=== PATIENT | female | born 1965 | race Caucasian/White ===

== ENCOUNTER 2017-05-20 17:06 | Inpatient (IN) | payer OTHER ==
--- NOTE | 2017-05-20 17:33 | ERPHSYRPT ---
- History of Present Illness Time Seen by Provider: 05/20/17 17:25 Source: patient Patient Subjective Stated Complaint: HAS RED SORE AREA TO LEFT BREAST. ALSO STATING SHE FEELS SOB. RESP EASY SYMPTOMS SINCE LAST MONDAY. WAS ADMITTED AT [facility] FOR TWO DAYS AND STARTED ON ANTIBIOTICS-AUGMENTIN. Triage Nursing Assessment: PRESENTS PER EMS ON COT TO ROOM FIVE. SKIN W/D, COLOR NORMAL, RESP NONLABORED, RATE 16, HOWEVER PATIENT STATES SHE FEELS LIKE SHE IS SOB. LARGE RED, WARM AREA NOTED TO LEFT BREAST AREA. NO MASSES NOTED. OXYGEN ON AT 2L WITH SAT OF 97%. BREATH SOUNDS CLEAR. Physician History: Pt. with L chest wall tenderness for 5 days States noticed redness increasing in size. States admitted at [facility] for two day and treated for what pt. thought "virus infection" and received IV atbc. Pt. also had chest CT, which was neg for PE. States she did not feel too much better when discharge. Continued to have fever, felt hot but did not know tem. along with SOB, diaphoresis, chills, productive cough with white sputum. Pt. previously with pneumonia/bronchitis and influenza B around 01/13. Denies any N/V/D, sinus congestion, earache or sore throat. Pt. have been taking nebs with some relief , Tylenol for fever and noted decrease appetite. States glucose running high this past week, 300's at most the time. No abdominal pain or urinary symptoms. Timing/Duration: day(s) (5), constant Severity: moderate Modifying Factors: Improves With: nothing Associated Symptoms: nausea, fever, No headaches, No loss of appetite Allergies/Adverse Reactions: acetaminophen [From Percocet] Allergy (Verified 05/20/17 17:19) codeine Allergy (Verified 05/20/17 17:19) ezetimibe [From Vytorin] Allergy (Verified 05/20/17 17:19) metformin [From Glucophage] Allergy (Verified 05/20/17 17:19) oxycodone [From Percocet] Allergy (Verified 05/20/17 17:19) prochlorperazine [From Compazine] Allergy (Verified 05/20/17 17:19) simvastatin [From Vytorin] Allergy (Verified 05/20/17 17:19) Home Medications: Atenolol 25 mg PO DAILY 09/22/16 [History] Cetirizine HCl [Zyrtec] 10 mg PO DAILY 09/22/16 [History] Gabapentin [Neurontin] 300 mg PO DAILY 09/22/16 [History] Insulin Glargine,Hum.rec.anlog [Lantus] 64 unit SQ QAM 09/22/16 [History] Insulin Lispro [Humalog] 14 unit SQ AC 09/22/16 [History] Lisinopril 40 mg PO DAILY 09/22/16 [History] Naproxen 300 mg PO DAILY 09/22/16 [History] Omeprazole 20 MG [Prilosec 20 mg] 20 mg PO DAILY 09/22/16 [History] Sertraline HCl 100 mg [Zoloft 100 MG] 100 mg PO DAILY 09/22/16 [History] Sitagliptin Phosphate [Januvia] 1 tab PO DAILY 09/22/16 [History] Tizanidine HCl 4 mg [Zanaflex 4 MG] 4 mg PO DAILY 09/22/16 [History] Cinnamon Bark [Cinnamon] 500 mg PO .UNKNOWN 11/15/16 [History] Multivitamin [Multivitamins] 1 each PO .UNKNOWN 11/15/16 [History] Atorvastatin Calcium [Lipitor 40Mg] 40 mg PO DAILY 04/17/17 [History] Buprenorphine HCl [Belbuca] 75 mcg BC DAILY 04/17/17 [History] Hx Tetanus, Diphtheria Vaccination/Date Given: No Hx Influenza Vaccination/Date Given: Yes Hx Pneumococcal Vaccination/Date Given: Yes - Review of Systems Constitutional: Fever, Chills, Fatigue, Weakness Eyes: No Symptoms Ears, Nose, & Throat: No Symptoms Respiratory: Cough, Dyspnea, Dyspnea on Exertion (DIAZ), Wheezing Cardiac: Chest Pain, Palpitations, No Edema, No Syncope, No Orthopnea Abdominal/Gastrointestinal: No Abdominal Pain, No Nausea, No Vomiting, No Diarrhea Genitourinary Symptoms: No Dysuria Musculoskeletal: No Back Pain, No Neck Pain Skin: No Rash Neurological: No Dizziness, No Focal Weakness, No Sensory Changes Psychological: No Symptoms Endocrine: No Symptoms All Other Systems: Reviewed and Negative - Past Medical History Pertinent Past Medical History: Yes Neurological History: No Pertinent History Cardiac History: Hypertension, Other Respiratory History: Asthma Endocrine Medical History: Diabetes Type II Musculoskeletal History: Degenerative Disk Disease Other Medical History: MVP, R KNEE MENSICUS TEAR W/ REPAIR - Past Surgical History Past Surgical History: Yes Gastrointestinal: Cholecystectomy, Hernia Repair Musculoskeletal: Orthopedic Surgery (R Knee torn meniscus) Female Surgical History: Tubal Ligation - Social History Smoking Status: Never smoker Exposure to second hand smoke: No Drug Use: none Patient Lives Alone: No - Nursing Vital Signs Nursing Vital Signs: Initial Vital Signs Temperature 99.2 F Temperature Source Oral Pulse Rate 106 Respiratory Rate 16 Blood Pressure [Right Arm] 123/62 Pain Intensity [Left Chest] 8 Pain Intensity 8 - Physical Exam General Appearance: no apparent distress, alert Eye Exam: PERRL/EOMI, eyes nml inspection Ears, Nose, Throat Exam: normal ENT inspection, TMs normal, pharynx normal, moist mucous membranes Neck Exam: normal inspection, non-tender, supple, full range of motion Respiratory Exam: normal breath sounds, chest tenderness (L chest wall area with surrounding erythema and subcutaneaous mass to L ant. axillary area), lungs clear, No respiratory distress Cardiovascular Exam: regular rate/rhythm, normal heart sounds, normal peripheral pulses Gastrointestinal/Abdomen Exam: soft, normal bowel sounds, No tenderness, No mass Back Exam: normal inspection, normal range of motion, No CVA tenderness, No vertebral tenderness Extremity Exam: normal inspection, normal range of motion, pelvis stable Neurologic Exam: alert, oriented x 3, cooperative, normal mood/affect, nml cerebellar function, nml station & gait, sensation nml, No motor deficits Skin Exam: normal color, warm, dry, other (erythema tender area to L chest wall area), No rash Lymphatic Exam: No adenopathy SpO2: 97 Oxygen Delivery: Room Air - Course Nursing assessment & vital signs reviewed: Yes EKG Interpreted by Me: RATE (80), NORMAL AXIS, NORMAL INTERVALS, NORMAL QRS, Non -specific ST Changes - Radiology Exams Chest X-ray Interpretation: Interpreted by me, Other (?bilat patchy infiltrates) Ordered Tests: Active Orders 24 hr Category Date Time Status Clean Catch Urine Specimen STAT Care 05/20/17 17:41 Active EKG-ER Only STAT Care 05/20/17 17:41 Active IV Insertion STAT Care 05/20/17 17:41 Active CHEST 2 VIEWS (PA AND LAT) Stat Exams 05/20/17 17:41 Ordered CBC W DIFF Stat Lab 05/20/17 17:30 Completed CMP Stat Lab 05/20/17 17:30 Completed Lactic Acid Stat Lab 05/20/17 17:45 Results Manual Differential NC Stat Lab 05/20/17 17:30 Completed UA W/RFX UR CULTURE Stat Lab 05/20/17 18:30 Completed Medication Summary Generic Name Dose Route Start Last Admin Trade Name Merlene PRN Reason Stop Dose Admin Sodium Chloride 1,000 mls @ 250 mls/hr 05/20/17 17:41 05/20/17 17:54 Sodium Chloride 0.9% 1000 Ml IV 05/20/17 21:40 250 mls/hr .Q4H STA Administration Discontinued Medications Generic Name Dose Route Start Last Admin Trade Name Merlene PRN Reason Stop Dose Admin Sodium Chloride Confirm 05/20/17 17:53 Sodium Chloride 0.9% 1000 Ml Administered 05/20/17 17:54 Dose 1,000 mls @ ud .ROUTE .STK-MED ONE Morphine Sulfate 2 mg 05/20/17 17:43 05/20/17 17:58 Morphine Sulfate 4 Mg Inj IV 05/20/17 17:44 2 mg STAT ONE Administration Morphine Sulfate Confirm 05/20/17 17:52 Morphine Sulfate 4 Mg Inj Administered 05/20/17 17:53 Dose 4 mg .ROUTE .STK-MED ONE Ondansetron HCl Confirm 05/20/17 18:04 Zofran 4 Mg/2 Ml Vial Administered 05/20/17 18:05 Dose 4 mg .ROUTE .STK-MED ONE Ondansetron HCl 4 mg 05/20/17 18:06 05/20/17 18:06 Zofran 4 Mg/2 Ml Vial IV 05/20/17 18:07 4 mg STAT ONE Administration Lab/Rad Data: Laboratory Result Diagrams 05/20/17 17:30 05/20/17 17:30 Laboratory Results 05/20/17 05/20/17 05/20/17 Range/Units 18:30 17:45 17:30 WBC (4.0-10.5) K/mm3 RBC (4.1-5.4) M/mm3 Hgb (12.0-16.0) gm/dl Hct (35-47) % MCV (78-100) fl MCH (26-32) pg MCHC (32-36) g/dl RDW (11.5-14.0) % Plt Count (150-450) K/mm3 MPV (6-9.5) fl Segmented Neutrophils (36.0-66.0) % Lymphocytes (Manual) (24-44) % Monocytes (Manual) (0.0-12.0) % Eosinophils (Manual) (0.00-3.0) % Differential Comment Platelet Estimate (NORMAL) Sodium 141 (136-145) mEq/L Potassium 3.6 (3.5-5.1) mEq/L Chloride 103 (98-107) mEq/L Carbon Dioxide 26.4 (21-32) mEq/L Anion Gap 15.6 H (5-15) MEQ/L BUN 8 L (9-20) mg/dL Creatinine 0.39 L (0.55-1.30) mg/dl Estimated GFR > 60 ML/MIN Glucose 119 H (70-110) MG/DL Lactic Acid 1.9 (0.4-2.0) Calcium 8.7 (8.5-10.1) mg/dL Total Bilirubin 0.80 (0.2-1.0) mg/dL AST 35 (15-37) U/L ALT 25 (12-78) U/L Alkaline Phosphatase 282 H (46-116) U/L Serum Total Protein 6.0 L (6.4-8.2) gm/dL Albumin 2.1 L (3.4-5.0) g/dL Ur Collection Type CLEAN CATCH Urine Color STRAW (YELLOW) Urine Appearance CLEAR (CLEAR) Urine pH 6.0 (5-6) Ur Specific [place] 1.010 (1.005-1.025) Urine Protein NEGATIVE (Negative) Urine Ketones NEGATIVE (NEGATIVE) Urine Blood NEGATIVE (0-5) Sameer/ul Urine Nitrite NEGATIVE (NEGATIVE) Urine Bilirubin NEGATIVE (NEGATIVE) Urine Urobilinogen 4 (0-1) mg/dL Ur Leukocyte Esterase NEGATIVE (NEGATIVE) Urine Glucose 50 (NEGATIVE) mg/dL Specimen Received 05/20/17:1830 05/20/17 Range/Units 17:30 WBC 17.5 H (4.0-10.5) K/mm3 RBC 3.55 L (4.1-5.4) M/mm3 Hgb 10.5 L (12.0-16.0) gm/dl Hct 31.2 L (35-47) % MCV 87.9 (78-100) fl MCH 29.5 (26-32) pg MCHC 33.7 (32-36) g/dl RDW 13.1 (11.5-14.0) % Plt Count 315 (150-450) K/mm3 MPV 10.1 H (6-9.5) fl Segmented Neutrophils 84 H (36.0-66.0) % Lymphocytes (Manual) 6 L (24-44) % Monocytes (Manual) 8 (0.0-12.0) % Eosinophils (Manual) 2 (0.00-3.0) % Differential Comment NORMAL Platelet Estimate NORMAL (NORMAL) Sodium (136-145) mEq/L Potassium (3.5-5.1) mEq/L Chloride (98-107) mEq/L Carbon Dioxide (21-32) mEq/L Anion Gap (5-15) MEQ/L BUN (9-20) mg/dL Creatinine (0.55-1.30) mg/dl Estimated GFR ML/MIN Glucose (70-110) MG/DL Lactic Acid (0.4-2.0) Calcium (8.5-10.1) mg/dL Total Bilirubin (0.2-1.0) mg/dL AST (15-37) U/L ALT (12-78) U/L Alkaline Phosphatase (46-116) U/L Serum Total Protein (6.4-8.2) gm/dL Albumin (3.4-5.0) g/dL Ur Collection Type Urine Color (YELLOW) Urine Appearance (CLEAR) Urine pH (5-6) Ur Specific [place] (1.005-1.025) Urine Protein (Negative) Urine Ketones (NEGATIVE) Urine Blood (0-5) Sameer/ul Urine Nitrite (NEGATIVE) Urine Bilirubin (NEGATIVE) Urine Urobilinogen (0-1) mg/dL Ur Leukocyte Esterase (NEGATIVE) Urine Glucose (NEGATIVE) mg/dL Specimen Received - Progress Progress: improved Progress Note: 05/20/17 18:45 Pt. given Morphine for pain with some relief of her symptoms Old charts reviewed from recent [facility] admission. Pt. with dx. of chest wall pain, infected left axilary lymph node and noted WBC was 20K on that decrease to 14K when she was discharge on 05/1805/20/17 18:47 05/20/17 19:11 Will start Vancomycin/Rocephin per Dr. Mendez Discussed with : Andrea (notified about pt and agrees to admit) Counseled pt/family regarding: lab results, diagnosis, rad results - Departure Time of Disposition: 19:10 Departure Disposition: Observation Clinical Impression: Cellulitis, Pneumonia Condition: Fair Critical Care Time: No Referrals: FELISHA OLIVER MD [Primary Care Provider] -
[2017-05-20] MEDS ORDERED: Sodium Chloride 0.9% 1000 ML 1,000 ML IV STA (17:41)
[2017-05-20] MEDS ORDERED: MORPHINE SULFATE 4 MG INJ IV ONE (17:43)
[2017-05-20 17:51] LABS: Mean Cell Volume 87.9 fl (78-100); Mean Platelet Volume 10.1 fl (6-9.5); Platelet Count 315 K/mm3 (150-450); Red Blood Count 3.55 M/mm3 (4.1-5.4); Red Cell Distribution Width 13.1 % (11.5-14.0); White Blood Count 17.5 K/mm3 (4.0-10.5)
[2017-05-20 17:51] LABS: Lactic Acid 1.9 (0.4-2.0)
[2017-05-20 17:52] LABS: Mean Corpuscular Hemoglobin 29.5 pg (26-32)
[2017-05-20] MEDS ORDERED: MORPHINE SULFATE 4 MG INJ ONE (17:52)
[2017-05-20] MEDS ORDERED: Sodium Chloride 0.9% 1000 ML 1,000 ML ONE (17:53)
[2017-05-20] MEDS ORDERED: Zofran 4 MG/2 ML VIAL ONE (18:04)
[2017-05-20] MEDS ORDERED: Zofran 4 MG/2 ML VIAL IV ONE (18:06)
[2017-05-20 18:08] LABS: ALBUMIN 2.1 g/dL (3.4-5.0); ALKALINE PHOSPHATASE 282 U/L (46-116); ANION GAP 15.6 MEQ/L (5-15); BLOOD UREA NITROGEN 8 mg/dL (9-20); CHLORIDE 103 mEq/L (98-107); Carbon Dioxide 26.4 mEq/L (21-32); Glucose 119 MG/DL (70-110); Potassium 3.6 mEq/L (3.5-5.1); SGOT/AST 35 U/L (15-37); SGPT/ALT 25 U/L (12-78); SODIUM 141 mEq/L (136-145)
[2017-05-20 18:46] LABS: ADD URINE CULTURE? NO (NO); Bilirubin NEGATIVE (NEGATIVE); Blood NEGATIVE Ery/ul (0-5); COMPLETE URINE MICROSCOPIC? NO; Collection Type CLEAN CATCH; Glucose 50 mg/dL (NEGATIVE); Leukocyte Esterase NEGATIVE (NEGATIVE)
[2017-05-20 19:07] LABS: Eosinophil 2 % (0.00-3.0); Platelet Estimate NORMAL (NORMAL); Total Cells Counted 100
[2017-05-20] MEDS ORDERED: Vancomycin 1GM/ Ns 250ML*** 1 GM/250 ML IVPB IV ONE (19:22)
[2017-05-20] MEDS ORDERED: Rocephin 1000 MG INJ IV ONE (19:23)
[2017-05-20] MEDS ORDERED: ROCEPHIN 1 Gm-D5w 50 ml Bag** 1 G/50 ML IVPB IV ONE (19:26)
[2017-05-20] MEDS ORDERED: Vancomycin 1GM/ Ns 250ML*** 250 ML IV ONE (19:26)
[2017-05-20] MEDS ORDERED: TYLENOL 325 MG PO PRN (21:46)
[2017-05-20] MEDS ORDERED: PHARMACY DOSING REQUIRED: VANCOMYCIN IV ONE (21:48)
[2017-05-20] MEDS ORDERED: NON-FORMULARY ITEM PO PRN (21:57)
[2017-05-20] MEDS ORDERED: Zanaflex 4 MG PO ONE (22:00)
[2017-05-20] MEDS ORDERED: ULTRAM 50 MG PO PRN (22:00)
[2017-05-20] MEDS ORDERED: Neurontin 100 MG PO ONE (22:00)
[2017-05-20] MEDS: Zofran 4 MG/2 ML VIAL IV PRN (22:22)
[2017-05-20] MEDS: MORPHINE SULFATE 4 MG INJ IV PRN (22:22)
[2017-05-21] MEDS: PROVENTIL 2.5 MG/3 ML NEB IH PRN ×5 (03:34→20:07)
[2017-05-21] MEDS: Zofran 4 MG/2 ML VIAL IV PRN ×2 (04:21→22:02)
[2017-05-21] MEDS: MORPHINE SULFATE 4 MG INJ IV PRN (04:21)
[2017-05-21 05:55] LABS: Mean Platelet Volume 9.8 fl (6-9.5); Platelet Count 314 K/mm3 (150-450); Red Blood Count 3.44 M/mm3 (4.1-5.4); Red Cell Distribution Width 13.2 % (11.5-14.0); White Blood Count 13.6 K/mm3 (4.0-10.5)
[2017-05-21 06:06] LABS: Mean Corpuscular Hemoglobin 29.3 pg (26-32)
[2017-05-21 06:13] LABS: ANION GAP 12.5 MEQ/L (5-15); BLOOD UREA NITROGEN 7 mg/dL (9-20); CHLORIDE 104 mEq/L (98-107); Carbon Dioxide 27.9 mEq/L (21-32); Glucose 98 MG/DL (70-110); Potassium 3.2 mEq/L (3.5-5.1); SODIUM 141 mEq/L (136-145)
[2017-05-21 07:55] LABS: ANISOCYTOSIS 1+; Poikilocytosis 1+; Total Cells Counted 100
[2017-05-21 07:56] LABS: Platelet Estimate NORMAL (NORMAL); Toxic Granulation 1+
--- NOTE | 2017-05-21 08:19 | PCM.HP ---
History of Present Illness - Chief Complaint Chief Complaint: Pneumonia History of Present Illness: is a 52 year old female who was admitted to [facility] last week and kept for 2 days, was treated for infected lymph node in left chest wall. She presented to our ER yesterday with left lateral chest pain, cough, fever and feels terrible. - Review of Systems Constitutional: Fever, Chills, Weakness Respiratory: Cough Cardiac: Chest Pain Abdominal/Gastrointestinal: No Abdominal Pain, No Nausea, No Vomiting, No Diarrhea Skin: Cellulitis All Other Systems: Reviewed and Negative Medications & Allergies Home Medications: Home Medication List Atenolol 25 mg PO DAILY 09/22/16 [History Confirmed 05/20/17] Cetirizine HCl [Zyrtec] 10 mg PO DAILY 09/22/16 [History Confirmed 05/20/17] Insulin Glargine,Hum.rec.anlog [Lantus] 65 unit SQ QAM 09/22/16 [History Confirmed 05/20/17] Insulin Lispro [Humalog] 20 unit SQ AC 09/22/16 [History Confirmed 05/20/17] Lisinopril 40 mg PO DAILY 09/22/16 [History Confirmed 05/20/17] Sertraline HCl 100 mg [Zoloft 100 MG] 100 mg PO DAILY 09/22/16 [History Confirmed 05/20/17] Sitagliptin Phosphate [Januvia] 1 tab PO DAILY 09/22/16 [History Confirmed 05/20] Tizanidine HCl 4 mg [Zanaflex 4 MG] 4 mg PO HS 09/22/16 [History Confirmed 05/20/17] Atorvastatin Calcium [Lipitor 40Mg] 40 mg PO HS 04/17/17 [History Confirmed ] Albuterol Sulfate [Proair Hfa] 8.5 gm IH UD PRN 05/20/17 [History Confirmed ] Amoxicillin/Potassium Clav [Augmentin 875-125 Tablet] 875 mg PO BID 05/20/17 [ History Confirmed 05/20/17] Gabapentin 100 mg PO BID 05/20/17 [History Confirmed 05/20/17] Naproxen Sodium [Naproxen Cr] 500 mg PO BID 05/20/17 [History Confirmed 05/20/17 ] Omeprazole 40 mg PO DAILY 05/20/17 [History Confirmed 05/20/17] Sumatriptan Succinate [Imitrex 50 mg] 50 mg PO Q8H PRN PRN 05/20/17 [History Confirmed 05/20/17] Tramadol HCl 50 mg PO Q4H PRN PRN 05/20/17 [History Confirmed 05/20/17] Allergies/Adverse Reactions: Allergies Allergy/AdvReac Type Severity Reaction Status Date / Time codeine Allergy Verified 05/20/17 17:19 ezetimibe [From Vytorin] Allergy Verified 05/20/17 17:19 metformin [From Glucophage] Allergy Verified 05/20/17 17:19 oxycodone [From Percocet] Allergy Verified 05/20/17 17:19 prochlorperazine Allergy Verified 05/20/17 17:19 [From Compazine] simvastatin [From Vytorin] Allergy Verified 05/20/17 17:19 - Past Medical History Past Medical History: Yes Neurological History: No Pertinent History Cardiac History: Hypertension, Other Respiratory History: Asthma Endocrine Medical History: Diabetes Type II Musculoskelatal History: Degenerative Disk Disease, Other Comment: Mitral Valve Prolapse, R KNEE MENSICUS TEAR W/ REPAIR, plantar fascia - Female History Are you now?: No - Past Surgical History Past Surgical History: Yes GI Surgical History: Cholecystectomy, Hernia Repair Musculskeletal Surgical Hx: Orthopedic Surgery Female Surgical History: Tubal Ligation Other Surgical History: carpal tunel repair in right hand - Social History Smoking Status: Former smoker Exposure to second hand smoke: No Alcohol: None Drug Use: none - Physical Exam Vital Signs: Vital Signs - 24 hr Temp Pulse Resp BP Pulse Ox 05/21/17 07:36 96 H 22 97 05/21/17 07:05 98.8 F 100 H 20 137/72 96 05/21/17 04:00 98.6 F 115 H 24 147/92 96 05/21/17 03:37 106 H 22 95 05/20/17 23:35 98.0 F 103 H 18 98/55 97 05/20/17 21:57 94 H 20 96 05/20/17 20:17 98.4 F 102 H 24 149/77 97 05/20/17 20:04 98.4 F 102 H 24 149/77 98 05/20/17 19:40 102 H 98 H 138/60 98 05/20/17 19:35 137/60 05/20/17 19:34 99.1 F 104 H 18 98 05/20/17 19:14 99.4 F 104 H 20 108/75 98 05/20/17 19:11 97 05/20/17 17:07 99.2 F 106 H 16 123/62 97 Oxygen-Last 24 hours O2 Percentage 2 Liters = 28% O2 Percentage 2 Liters = 28% O2 Percentage 2 Liters = 28% O2 Percentage 2 Liters = 28% O2 Percentage 2 Liters = 28% O2 Percentage 2 Liters = 28% General Appearance: no apparent distress, alert Eye Exam: PERRL/EOMI, eyes nml inspection Respiratory Exam: wheezing Cardiovascular Exam: regular rate/rhythm, normal heart sounds, normal peripheral pulses Gastrointestinal/Abdomen Exam: soft, normal bowel sounds, No tenderness, No mass Skin Exam: other (left lateral breast with large indurated area, slight erythema. no obvious fluctuance) Results - Labs Lab/Micro Results: Accuchecks Accucheck Value: 63 Lab Results-Last 24 Hours 05/20/17 05/21/17 05/21/17 Range/Units 20:30 05:32 05:32 WBC 13.6 H (4.0-10.5) K/mm3 RBC 3.44 L (4.1-5.4) M/mm3 Hgb 10.1 L (12.0-16.0) gm/dl Hct 30.6 L (35-47) % MCV 89.0 (78-100) fl MCH 29.3 (26-32) pg MCHC 33.0 (32-36) g/dl RDW 13.2 (11.5-14.0) % Plt Count 314 (150-450) K/mm3 MPV 9.8 H (6-9.5) fl Segmented Neutrophils 75 H (36.0-66.0) % Lymphocytes (Manual) 21 L (24-44) % Monocytes (Manual) 4 (0.0-12.0) % Differential Comment ABNORMAL Toxic Granulation 1+ Platelet Estimate NORMAL (NORMAL) Poikilocytosis 1+ Anisocytosis 1+ Sodium 141 (136-145) mEq/L Potassium 3.2 L (3.5-5.1) mEq/L Chloride 104 (98-107) mEq/L Carbon Dioxide 27.9 (21-32) mEq/L Anion Gap 12.5 (5-15) MEQ/L BUN 7 L (9-20) mg/dL Creatinine 0.50 L (0.55-1.30) mg/dl Estimated GFR > 60 ML/MIN Glucose 98 (70-110) MG/DL Lactic Acid 0.8 (0.4-2.0) Calcium 8.7 (8.5-10.1) mg/dL Accuchecks Accucheck Value: 63 - Radiology Impressions Radiology Exams & Impressions: Radiology Procedures Category Date Time Status CHEST WITH CONTRAST [CT] Urgent Exams 05/21/17 08:14 Ordered - Other Procedures and Tests Respiratory Therapy 05/20/17 21:56 Oxygen NASAL CANNULA 2 lpm 05/20/17 21:57 Respiratory Nebulizer UD Assessment/Plan (1) Pneumonia Current Visit: Yes Status: Acute Assessment & Plan: continue Vanc and rocephin at this time, will get ct chest to further evaluate, has wheezing. continue nebs Code(s): J18.9 - PNEUMONIA, UNSPECIFIED ORGANISM (2) Cellulitis Current Visit: Yes Status: Acute Assessment & Plan: continue vanc, evaluate soft tissue induration/mass with CT chest with IV contrast Code(s): L03.90 - CELLULITIS, UNSPECIFIED (3) Diabetes mellitus Current Visit: Yes Status: Acute Assessment & Plan: sliding scale insulin coverage and continue lantus Code(s): E11.9 - TYPE 2 DIABETES MELLITUS WITHOUT COMPLICATIONS
[2017-05-21] MEDS: VANCOCIN 1 GM VIAL*** 1.5 GM in Sodium Chloride 0.9% 500 ML 500 ML IV SCH ×2 (09:23→20:31)
[2017-05-21] MEDS ORDERED: NON-FORMULARY ITEM (Sumatriptan Succinate [Imitrex 50 Mg] 50 MG) PO PRN (09:35)
[2017-05-21] MEDS ORDERED: PATIENT OWN MEDICATION PO PRN (09:40)
[2017-05-21] MEDS ORDERED: NON-FORMULARY ITEM (Lisinopril [Lisinopril] 40 MG) PO SCH (10:00)
[2017-05-21] MEDS ORDERED: NON-FORMULARY ITEM (Atenolol [Atenolol] 25 MG) PO SCH (10:00)
[2017-05-21] MEDS ORDERED: NON-FORMULARY ITEM (Sertraline Hcl 100 Mg [Zoloft 100 Mg] 100 MG) PO SCH (10:00)
[2017-05-21] MEDS ORDERED: NON-FORMULARY ITEM (Omeprazole [Omeprazole] 40 MG) PO SCH (10:00)
[2017-05-21] MEDS: Lantus Insulin SQ SCH (10:30)
[2017-05-21] MEDS: ZOLOFT 50 MG TABLET PO SCH (10:34)
[2017-05-21] MEDS: Protonix 40MG Tablet PO SCH (10:35)
[2017-05-21] MEDS: TENORMIN 50 MG PO SCH (10:38)
[2017-05-21] MEDS: Neurontin 100 MG PO SCH ×2 (10:39→21:56)
[2017-05-21] MEDS: Zestril 20 MG PO SCH (10:43)
[2017-05-21] MEDS ORDERED: ROCEPHIN 1 Gm-D5w 50 ml Bag** 1 G/50 ML IVPB IV ONE (19:37)
[2017-05-21] MEDS: Zanaflex 4 MG PO SCH (21:56)
[2017-05-21] MEDS: LIPITOR 40MG PO SCH (21:57)
[2017-05-21] MEDS: NovoLOG Insulin SQ PRN (22:15)
[2017-05-22] MEDS: ROCEPHIN 1 Gm-D5w 50 ml Bag** 1 G/50 ML IVPB IV SCH ×2 (00:16→21:09)
[2017-05-22 05:54] LABS: Mean Cell Volume 88.4 fl (78-100); Mean Platelet Volume 9.5 fl (6-9.5); Platelet Count 337 K/mm3 (150-450); Red Cell Distribution Width 13.2 % (11.5-14.0)
[2017-05-22 06:04] LABS: Mean Corpuscular Hemoglobin 29.6 pg (26-32)
[2017-05-22 06:21] LABS: ALBUMIN 1.6 g/dL (3.4-5.0); ALKALINE PHOSPHATASE 277 U/L (46-116); ANION GAP 13.7 MEQ/L (5-15); BLOOD UREA NITROGEN 4 mg/dL (9-20); CHLORIDE 102 mEq/L (98-107); Glucose 229 MG/DL (70-110); SGOT/AST 22 U/L (15-37); SGPT/ALT 24 U/L (12-78); SODIUM 138 mEq/L (136-145); Total Protein 6.4 gm/dL (6.4-8.2)
[2017-05-22] MEDS ORDERED: K-LYTE 25 MEQ PO ONE (07:00)
[2017-05-22 07:25] LABS: Nucleated Red Blood Cell 1 %; Total Cells Counted 100
[2017-05-22 07:26] LABS: ANISOCYTOSIS 1+; Platelet Estimate NORMAL (NORMAL); Poikilocytosis 1+
[2017-05-22] MEDS: PROVENTIL 2.5 MG/3 ML NEB IH PRN ×4 (07:33→20:25)
--- NOTE | 2017-05-22 08:08 | PCM.NOTE ---
Date and Time: 05/22/17 0803 Subjective Assessment: patient reports improvement in pain, she is able to move better. cough is productive, less wheezing. overall feels like she is moving in the right direction Objective Exam General Appearance: no apparent distress, alert Skin Exam: other (large indurated, warm, tender area left axilla/lateral left breast. no obvious fluctuance) Respiratory Exam: normal breath sounds, lungs clear, No respiratory distress Cardiovascular Exam: regular rate/rhythm, normal heart sounds Gastrointestinal/Abdomen Exam: soft, No tenderness, No mass OBJECTIVE DATA Vital Signs: Vital Signs - 24 hr Temp Pulse Resp BP BP Pulse Ox 05/22/17 07:03 97.6 F 83 20 132/58 96 05/21/17 23:51 97.9 F 100 H 22 148/70 94 L 05/21/17 20:09 96 H 18 98 05/21/17 19:00 98.9 F 94 H 22 139/81 96 05/21/17 16:04 93 H 20 97 05/21/17 12:22 97.9 F 80 20 150/77 95 05/21/17 11:08 96 H 22 95 05/21/17 10:38 100 H 137/72 Oxygen-Last 24 hours O2 Percentage 2 Liters = 28% O2 Percentage 2 Liters = 28% Pain Assessment - Last Documented Pain Intensity 7 Pain Scale Used 0-10 Pain Scale Intake and Output: Intake & Output 05/19/17 05/20/17 05/21/17 05/22/17 11:59 11:59 11:59 11:59 Intake Total 796 2189 Output Total 900 200 Balance -104 1989 Weight 106.367 kg Lab Results: Accuchecks Date 05/21/17 Date 05/21/17 Time 16:13 Time 11:30 Accucheck Value: 249 Accucheck Value: 137 Accucheck Value: 110 Lab Results-Last 24 Hours 05/22/17 05/22/17 Range/Units 05:23 05:23 WBC 14.0 H (4.0-10.5) K/mm3 RBC 3.20 L (4.1-5.4) M/mm3 Hgb 9.5 L (12.0-16.0) gm/dl Hct 28.3 L (35-47) % MCV 88.4 (78-100) fl MCH 29.6 (26-32) pg MCHC 33.6 (32-36) g/dl RDW 13.2 (11.5-14.0) % Plt Count 337 (150-450) K/mm3 MPV 9.5 (6-9.5) fl Segmented Neutrophils 81 H (36.0-66.0) % Lymphocytes (Manual) 15 L (24-44) % Monocytes (Manual) 4 (0.0-12.0) % Nucleated RBCs 1 % Platelet Estimate NORMAL (NORMAL) Poikilocytosis 1+ Anisocytosis 1+ Sodium 138 (136-145) mEq/L Potassium 3.0 L* (3.5-5.1) mEq/L Chloride 102 (98-107) mEq/L Carbon Dioxide 26.0 (21-32) mEq/L Anion Gap 13.7 (5-15) MEQ/L BUN 4 L (9-20) mg/dL Creatinine 0.54 L (0.55-1.30) mg/dl Estimated GFR > 60 ML/MIN Glucose 229 H (70-110) MG/DL Calcium 8.8 (8.5-10.1) mg/dL Total Bilirubin 0.50 (0.2-1.0) mg/dL AST 22 (15-37) U/L ALT 24 (12-78) U/L Alkaline Phosphatase 277 H (46-116) U/L Serum Total Protein 6.4 (6.4-8.2) gm/dL Albumin 1.6 L (3.4-5.0) g/dL Radiology Exams: Radiology Procedures Category Date Time Status CHEST WITH CONTRAST [CT] Urgent Exams 05/21/17 08:14 Taken Assessment/Plan (1) Pneumonia Current Visit: Yes Status: Acute Assessment & Plan: ct shows gina atelectasis, improved with rocephin and vanc, continue current management. nebs, no wheezing today Code(s): J18.9 - PNEUMONIA, UNSPECIFIED ORGANISM (2) Cellulitis Current Visit: Yes Status: Acute Assessment & Plan: no obvious fluctuance left axillary region. Code(s): L03.90 - CELLULITIS, UNSPECIFIED (3) Diabetes mellitus Current Visit: Yes Status: Acute Assessment & Plan: continue sliding scale insulin and lantus, stable Code(s): E11.9 - TYPE 2 DIABETES MELLITUS WITHOUT COMPLICATIONS
[2017-05-22] MEDS ORDERED: TROUGH DRUG LEVELS IJ ONE (08:30)
[2017-05-22] MEDS: VANCOCIN 1 GM VIAL*** 1.5 GM in Sodium Chloride 0.9% 500 ML 500 ML IV SCH ×2 (08:37→21:48)
[2017-05-22] MEDS: Lantus Insulin SQ SCH (08:42)
[2017-05-22] MEDS: ZOLOFT 50 MG TABLET PO SCH (08:43)
[2017-05-22] MEDS: TENORMIN 50 MG PO SCH (08:43)
[2017-05-22] MEDS: Zestril 20 MG PO SCH (08:43)
[2017-05-22] MEDS: Neurontin 100 MG PO SCH ×2 (08:43→21:13)
[2017-05-22] MEDS: NovoLOG Insulin SQ PRN ×4 (08:44→21:48)
[2017-05-22] MEDS: Protonix 40MG Tablet PO SCH (08:44)
--- NOTE | 2017-05-22 08:55 | XRAY ---
Indication: Left chest wall mass. Multiple contiguous axial images obtained through the chest using 80 cc Isovue 370 contrast. Comparison: August 25, 2008. New mild/moderate bilateral pleural effusions and bilateral dependent atelectasis greatest in the lung bases. Heart is borderline enlarged without pericardial effusion. No pathologic mediastinal/hilar lymphadenopathy. Stable small hiatal hernia. New left axillary soft tissue mass at least 6.1 x 6.5 cm with marked stranding favoring inflammatory/infectious process. No suspicious air/fluid collection. Bony thorax intact with minimal degenerative changes throughout the spine. Limited upper abdomen again demonstrates mild fatty liver and previous cholecystectomy. Impression: 1. New left axillary lymphadenopathy/lymphadenitis. 2. New borderline cardiomegaly and bilateral pleural effusions. Rule out mild/early cardiac decompensation. 3. Stable small hiatal hernia and fatty liver. Comment: Preliminary interpretation was made by [facility]. No critical discrepancy. CTDI 17.76
[2017-05-22] MEDS: SODIUM CHLORIDE 0.45% W/ 20 mEq KCL 1,000 ML IV SCH ×2 (11:04→21:58)
--- NOTE | 2017-05-22 11:55 | XRAY ---
Indication: Left-sided chest pain. Comparison: April 03, 2010. PA/lateral chest demonstrates new borderline cardiomegaly, vascular congestion, and tiny bibasilar effusions concerning for mild/early cardiac decompensation. Superimposed pneumonia not completely excluded. Bony thorax intact. Comment: Preliminary interpretation was made by [facility] who does not report above cardiopulmonary findings.
[2017-05-22] MEDS ORDERED: xanAX 0.5 MG PO PRN (12:20)
[2017-05-22] MEDS ORDERED: Versed 2 MG/2 ML Injection IV ONE (12:23)
[2017-05-22] MEDS ORDERED: Zofran 4 MG/2 ML VIAL IV ONE (12:23)
[2017-05-22] MEDS ORDERED: DIPRIVAN 200 MG/20 ML IV ONE (12:23)
[2017-05-22] MEDS ORDERED: TORAdol 30 mg Injection IV ONE (12:23)
[2017-05-22] MEDS ORDERED: SUBLIMAZE 100 MCG/2 ML IV ONE (12:23)
[2017-05-22] MEDS ORDERED: Decadron 4 MG INJ IV ONE (12:23)
[2017-05-22] MEDS ORDERED: DILAUDID 2 MG INJECTION IV ONE (12:23)
[2017-05-22] MEDS ORDERED: BICITRA 30 ML CUP PO ONE (12:38)
[2017-05-22] MEDS ORDERED: Pepcid 20 MG VIAL IV ONE (12:39)
[2017-05-22] MEDS ORDERED: Lactated Ringers 1,000 ML IV SCH (13:00)
[2017-05-22] MEDS ORDERED: Romazicon 0.5 MG/5 ML Injection ONE (14:05)
[2017-05-22] MEDS ORDERED: Narcan 0.4 MG/ML ONE (14:23)
[2017-05-22] MEDS ORDERED: Zofran 4 MG/2 ML VIAL ONE (14:45)
--- NOTE | 2017-05-22 14:58 | CONS ---
CONSULT DATE: 05/22/2017 HISTORY: This patient is seen for Dr. Hernandez who was precision lens technician for our group today. He asked that I see the patient as I was doing some cases down here. Apparently she had been in her a couple of days being treated for cellulitis of the right breast and also had some pneumonia. She had CT of the chest that was apparently done whether yesterday or not showed some lymphadenopathy. The patient is seen to have an indurated area on her left breast area on the CT chest versus collection or abscess. PAST MEDICAL HISTORY: Obesity, diabetes, anxiety, hypertension, asthma, degenerative disc disease, history of mitral valve prolapse in the past. PAST SURGICAL HISTORY: Cholecystectomy, hernia surgery, orthopedic surgery for right knee, meniscus tear with repair, plantar fasciitis in the past. She also had tubal in the past and carpal tunnel in the right hand in the past. MEDICATIONS: Atenolol, Sertraline, insulin, lisinopril, Januvia, Zanaflex, Lipitor, ProAir HFA for some chronic obstructive pulmonary disease. She had been on some Augmentin. She has had history of methicillin resistant staphylococcus aureus in the past. She has been on gabapentin, Naprosyn, omeprazole, Imitrex for cluster migraines and tramadol. ALLERGIES: NKDA. SOCIAL HISTORY: Former smoker. No alcohol abuse. FAMILY HISTORY: Negative for cancer. REVIEW OF SYSTEMS: Twelve systems reviewed per admission assessment. Pertinent for the history of methicillin resistant staphylococcus aureus. A little bit sore in the breast area. Otherwise pertinent for multiple medical problems. No shortness of breath. No new shortness of breath. She does have history of cough and some weakness, some aches and pains. Other systems negative or noncontributory as above and per preadmission questionnaire. PHYSICAL EXAMINATION: Afebrile earlier. Vital signs stable. GENERAL: A chronically ill female. HEENT: Sclera nonicteric. NECK: No JVD. CHEST: Equal excursion, nonlabored breathing. BREAST: The breast area she has indurated area over left breast with redness, tenderness. Question whether there is underlying infected collection. She has some swollen lymph nodes in the left axilla as well. ABDOMEN: Soft, obese, nondistended. EXTREMITIES: No significant edema. NEURO: Alert, moving extremities grossly symmetrically. LAB DATA AND TESTS: White blood cell count 14,000 the past two days. IMPRESSION: Cellulitis left breast. Question whether there is an underlying collection that would benefit from draining and possible debridement. Question whether her adenopathy left axillae is something to do with inflammation or infection given her cellulitis and induration. I feel she would benefit from operative attempted drainage, possible debridement pending on operative findings. General risk of bleeding or infection, risk of nonhealing of the wound possible need for packing, risk of ongoing infection possibly requiring other procedures as well she could need other procedures down the road pending operative findings and path results. If the axillae fails to improve she could need other intervention there at a later date. We will see if we have OR time down here as Dr. Hernandez is precision lens technician but is tied up in [place] at this time. The patient and family agreed to the plan.
[2017-05-22] MEDS ORDERED: Sensorcaine 0.25% 10 ML ONE (15:40)
[2017-05-22] MEDS: LIPITOR 40MG PO SCH (21:13)
[2017-05-22] MEDS: Zanaflex 4 MG PO SCH (21:14)
[2017-05-23] MEDS: SODIUM CHLORIDE 0.45% W/ 20 mEq KCL 1,000 ML IV SCH ×2 (01:40→15:19)
[2017-05-23 05:52] LABS: Mean Cell Volume 91.1 fl (78-100); Mean Platelet Volume 9.6 fl (6-9.5); Platelet Count 332 K/mm3 (150-450); Red Blood Count 3.38 M/mm3 (4.1-5.4); Red Cell Distribution Width 13.7 % (11.5-14.0); White Blood Count 15.6 K/mm3 (4.0-10.5)
[2017-05-23 05:56] LABS: Mean Corpuscular Hemoglobin 29.5 pg (26-32)
[2017-05-23] MEDS: PROVENTIL 2.5 MG/3 ML NEB IH PRN ×2 (06:55→22:48)
[2017-05-23 07:18] LABS: ANION GAP 17.4 MEQ/L (5-15); BLOOD UREA NITROGEN 13 mg/dL (9-20); CHLORIDE 101 mEq/L (98-107); Glucose 308 MG/DL (70-110); Potassium 4.6 mEq/L (3.5-5.1); SODIUM 138 mEq/L (136-145)
[2017-05-23 07:26] LABS: Total Cells Counted 100
[2017-05-23 07:27] LABS: Toxic Granulation 1+
[2017-05-23 07:30] LABS: Platelet Estimate NORMAL (NORMAL)
--- NOTE | 2017-05-23 07:40 | OP ---
SURGERY DATE/TIME: 05/22/2017 1305 PREOPERATIVE DIAGNOSIS: Left breast cellulitis, left axilla adenopathy. POSTOPERATIVE DIAGNOSIS: No visible breast abscess but infected, necrotic left axilla lymphadenopathy. PROCEDURE: Exploration excisional biopsy infected left axillary necrotic and infected lymph node excisional biopsy with culture and drainage with ultrasound guided assistance. SURGEON: Dr. Max Huerta. WO[employer]ING [employer] LABORER: Pk Roman, Medical Student III. ANESTHESIA: General. ESTIMATED BLOOD LOSS: Minimal. INDICATIONS: As noted above. Risks and benefits explained in detail and not limited to and consent obtained. DESCRIPTION OF PROCEDURE AND FINDINGS: The patient is taken to the operating room. Site had been confirmed on the floor. General anesthesia induced. The breast is prepped and draped in usual sterile fashion. Using the ultrasound there did not appear to be separate areas on the breast itself. There is an indurated area towards the anterior edge of the axilla. After official time out and no disagreement with planned procedure a curvilinear incision made. Dissection carried down. A small superficial vein was divided and ligated with Vicryl ties. Dissection carried down on top of inflamed, necrotic, infected lymph node. Small veins and lymphatics and arterioles are clipped and divided directly on its surface. It is carefully mobilized upwards. However it basically disintegrated into pieces and pus. The pieces were sent off as excisional biopsy specimen. Culture is taken. Copious amount of irrigation irrigating until clear. It appeared to have adequate hemostasis. Given the amount of infection it would probably be safest to go ahead and pack the wound. A small piece of Surgicel left in the raw surface. No visible vessel. Otherwise it was packed with 0.5 inch Iodoform. Sterile dressings applied. The patient tolerated the procedure well. There were no immediate complications. Findings discussed with the family out in the waiting area. Whether this is simply cat scratch infection versus mastitis or cellulitis with resultant lymph node infection and necrosis is unclear. Either way culture is sent. The lymph node is sent per lymph node protocol. The patient tolerated the procedure well. There were no immediate complications.
[2017-05-23] MEDS: NovoLOG Insulin SQ PRN ×4 (07:43→22:27)
[2017-05-23] MEDS: TENORMIN 50 MG PO SCH (08:57)
[2017-05-23] MEDS: ZOLOFT 50 MG TABLET PO SCH (08:58)
[2017-05-23] MEDS: Zestril 20 MG PO SCH (08:58)
[2017-05-23] MEDS: Protonix 40MG Tablet PO SCH (08:58)
[2017-05-23] MEDS: Neurontin 100 MG PO SCH ×2 (08:58→22:51)
[2017-05-23] MEDS: VANCOCIN 1 GM VIAL*** 1.5 GM in Sodium Chloride 0.9% 500 ML 500 ML IV SCH ×2 (08:59→20:04)
[2017-05-23] MEDS: Lantus Insulin SQ SCH (08:59)
--- NOTE | 2017-05-23 11:23 | PCM.DS ---
Discharge Summary Date of Admission: 05/20/17 19:50 Admitting Physician: MALLORY MENDEZ Consults: Consults on Case 05/22/17 07:58 Consult Surgery ROUTINE Primary Care Provider: FELISHA OLIVER Allergies Allergies codeine Allergy (Verified 05/20/17 17:19) ezetimibe [From Vytorin] Allergy (Verified 05/20/17 17:19) metformin [From Glucophage] Allergy (Verified 05/20/17 17:19) oxycodone [From Percocet] Allergy (Verified 05/20/17 17:19) prochlorperazine [From Compazine] Allergy (Verified 05/20/17 17:19) simvastatin [From Vytorin] Allergy (Verified 05/20/17 17:19) morphine Adverse Reaction (Verified 05/22/17 12:36) Hospital Summary - Hospital Course Hospital Course: Admitted with lymph node enlarged L chest, I&D done by surgery for abscess yesterday. Pt complains of no pain currently except with dressing changes. Has been on IV vancomycin and rocephin. She is tolerating po well, out of bed no issues. Has been requiring O2 (does not wear O2 at home). - Vitals & Intake/Output Vital Signs: Vital Signs Temperature 98 F 05/23/17 08:16 Pulse Rate 80 05/23/17 08:57 Respiratory Rate 18 05/23/17 08:16 Blood Pressure 126/62 05/23/17 08:57 O2 Sat by Pulse Oximetry 96 05/23/17 08:16 Oxygen-Last Documented O2 Percentage 2 Liters = 28% Intake & Output: Intake & Output 05/20/17 05/21/17 05/22/17 05/23/17 11:59 11:59 11:59 11:59 Intake Total 796 2189 3676 Output Total 900 200 400 Balance -104 1988 3275 Weight 106.367 kg 106.367 kg - Lab Result Diagrams: 05/23/17 05:49 05/23/17 05:49 Lab Results-Last 24 Hrs: Accuchecks Date 05/23/17 Date 05/22/17 Date 05/22/17 Time 16:30 Time 11:00 Accucheck Value: 320 Accucheck Value: 415 Accucheck Value: 255 Accucheck Value: 248 Lab Results-Last 24 Hours 05/22/17 05/23/17 05/23/17 Range/Units 05:00 05:49 05:49 WBC 15.6 H (4.0-10.5) K/mm3 RBC 3.38 L (4.1-5.4) M/mm3 Hgb 10.0 L (12.0-16.0) gm/dl Hct 30.8 L (35-47) % MCV 91.1 (78-100) fl MCH 29.5 (26-32) pg MCHC 32.5 (32-36) g/dl RDW 13.7 (11.5-14.0) % Plt Count 332 (150-450) K/mm3 MPV 9.6 H (6-9.5) fl Segmented Neutrophils 96 H (36.0-66.0) % Lymphocytes (Manual) 3 L (24-44) % Monocytes (Manual) 1 (0.0-12.0) % Differential Comment NORMAL Toxic Granulation 1+ Platelet Estimate NORMAL (NORMAL) Sodium 138 (136-145) mEq/L Potassium 4.6 (3.5-5.1) mEq/L Chloride 101 (98-107) mEq/L Carbon Dioxide 24.0 (21-32) mEq/L Anion Gap 17.4 H (5-15) MEQ/L BUN 13 (9-20) mg/dL Creatinine 0.66 (0.55-1.30) mg/dl Estimated GFR > 60 ML/MIN Glucose 308 H (70-110) MG/DL Hemoglobin A1c 10.3 H (4.5-6.2) Calcium 8.3 L (8.5-10.1) mg/dL Micro Results-Entire Visit: Accuchecks Date 05/23/17 Date 05/22/17 Date 05/22/17 Time 16:30 Time 11:00 Accucheck Value: 320 Accucheck Value: 415 Accucheck Value: 255 Accucheck Value: 248 - Procedures and Test Procedures and Tests throughout Hospitalization: Therapy Orders & Screens 05/20/17 21:25 RT Screen per Nursing Assess ONCE Comment: Protocol Order Physician Instructions: Greater than 3 points order RT Admission Screen Reason For Exam: Triggered on Admission Diagnosis: Pneumonia Diagnosis: Pneumonia Pneumonia: Yes Home O2: No Asthma: No CHF: No Home CPAP/BIPAP: No Home Nebs/MDI: Yes Total Points: 8 05/20/17 21:56 Oxygen NASAL CANNULA 2 lpm Comment: Diagnosis: Pneumonia 05/20/17 21:57 Respiratory Nebulizer UD Comment: albuterol q4prn Diagnosis: Pneumonia 05/21/17 16:04 Incentive Spirometry Assessmen UD Comment: SDC Diagnosis: Pneumonia Discharge Exam General Appearance: no apparent distress, obese Neurologic Exam: alert, oriented x 3, cooperative Skin Exam: warm, dry, other (dressing partially removed by me, no erythema or induration (L upper chest/axilla)) Eye Exam: eyes nml inspection Respiratory Exam: normal breath sounds, lungs clear, No crackles/rales, No rhonchi, No wheezing Cardiovascular Exam: regular rate/rhythm, normal heart sounds, No murmur Gastrointestinal/Abdomen Exam: soft, normal bowel sounds, No tenderness Back Exam: normal inspection Final Diagnosis/Problem List - Final Discharge Diagnosis/Problem (1) Cellulitis Current Visit: Yes Status: Acute Assessment & Plan: Cleared to d/c by surgery, will send home on po clindamycin and norco prn. f/u with surgery. f/u with Dr. Mendez on . (2) Hypoxemia Current Visit: Yes Status: Acute Assessment & Plan: Home on O2 if necessary; f/u with Dr. Mendez. (3) Diabetes mellitus Current Visit: Yes Status: Acute Assessment & Plan: BS elevated, 255-415 here. F/u with Dr. Mendez outpatient. - Discharge Disposition: Home, Self-Care Condition: Fair Prescriptions: New Clindamycin HCl 300 mg PO QID #40 capsule Hydrocodone/Acetaminophen [[place] 5-325 Tablet] 1 each PO Q4H PRN #15 tablet PRN Reason: Pain Continue Lisinopril 40 mg PO DAILY Atenolol 25 mg PO DAILY Tizanidine HCl 4 mg [Zanaflex 4 MG] 4 mg PO HS Sitagliptin Phosphate [Januvia] 1 tab PO DAILY Sertraline HCl 100 mg [Zoloft 100 MG] 100 mg PO DAILY Insulin Lispro [Humalog] 20 unit SQ AC Insulin Glargine,Hum.rec.anlog [Lantus] 65 unit SQ QAM Cetirizine HCl [Zyrtec] 10 mg PO DAILY Atorvastatin Calcium [Lipitor 40Mg] 40 mg PO HS Albuterol Sulfate [Proair Hfa] 8.5 gm IH UD PRN PRN Reason: Shortness Of Breath/Wheezing Sumatriptan Succinate [Imitrex 50 mg] 50 mg PO Q8H PRN PRN PRN Reason: Migraine Gabapentin 100 mg PO BID Omeprazole 40 mg PO DAILY Naproxen Sodium [Naproxen Sodium Cr] 500 mg PO BID Tramadol HCl 50 mg PO Q4H PRN PRN PRN Reason: Pain Discontinued Amoxicillin/Potassium Clav [Augmentin 875-125 Tablet] 875 mg PO BID Instructions: Cellulitis -- Adult, Pneumonia -- Adult, Incision and Drainage of a Skin Abscess Additional Instructions: GO TO [facility] FOR YOUR WOUND CARE - DRESSING CHANGE. YOU WILL START TOMORROW, April AT 10:30 AM. YOU WILL NEED TO GO EVERYDAY UNTIL YOUR FOLLOWUP APPOINTMENT WITH DR. ESPINOZA ON May AT 9:25 AM. THE INFUSION CENTER IS LOCATED DIRECTLY A[address]OSS [address] FROM THE HOSPITAL ON [address] IN THE [facility]. THIS IS DR. WOOTEN'S OLD OFFICE. Follow up with: FELISHA OLIVER MD [Primary Care Provider] - 05/31/17 10:30 am ASHLEY ESPINOZA [COURTESY STAFF] - 05/29/17 9:25 am Forms: Discharge Instructions
[2017-05-23] MEDS: NORCO 5/325 MG PO PRN ×3 (13:34→22:28)
[2017-05-23] MEDS: ROCEPHIN 1 Gm-D5w 50 ml Bag** 1 G/50 ML IVPB IV SCH (22:51)
[2017-05-23] MEDS: LIPITOR 40MG PO SCH (22:51)
[2017-05-23] MEDS: Zanaflex 4 MG PO SCH (23:40)
[2017-05-24] MEDS: SODIUM CHLORIDE 0.45% W/ 20 mEq KCL 1,000 ML IV SCH (04:17)
[2017-05-24] MEDS: NORCO 5/325 MG PO PRN ×5 (04:31→23:11)
[2017-05-24] MEDS: PROVENTIL 2.5 MG/3 ML NEB IH PRN (06:49)
[2017-05-24] MEDS: VANCOCIN 1 GM VIAL*** 1.5 GM in Sodium Chloride 0.9% 500 ML 500 ML IV SCH ×2 (08:03→21:31)
[2017-05-24] MEDS: NovoLOG Insulin SQ PRN ×3 (08:04→16:29)
--- NOTE | 2017-05-24 09:19 | PCM.NOTE ---
Date and Time: 05/24/17915 Subjective Assessment: patient remains short of breath and requiring oxygen, she has no signficant tobacco use history. has had to use albuterol "seasonally" in the past but has no prior diagnosis of chronic lung disease or cardiac disease etc Objective Exam Respiratory Exam: rhonchi, wheezing Cardiovascular Exam: regular rate/rhythm, normal heart sounds Gastrointestinal/Abdomen Exam: soft, No tenderness, No mass Extremity Exam: pedal edema OBJECTIVE DATA Vital Signs: Vital Signs - 24 hr Temp Pulse Resp BP Pulse Ox 05/24/17 07:05 98 F 76 20 108/68 95 05/24/17 06:52 75 20 95 05/24/17 04:00 98.1 F 82 20 102/51 99 05/23/17 22:52 78 22 94 L 05/23/17 21:46 98.3 F 86 20 134/89 95 05/23/17 16:00 98.7 F 74 18 126/63 94 L Oxygen-Last 24 hours O2 Percentage 2 Liters = 28% O2 Percentage 2 Liters = 28% O2 Percentage 2 Liters = 28% Pain Assessment - Last Documented Pain Intensity 2 Pain Scale Used 0-10 Pain Scale Intake and Output: Intake & Output 05/21/17 05/22/17 05/23/17 05/24/17 11:59 11:59 11:59 11:59 Intake Total 796 2189 3676 4248 Output Total 900 200 400 Balance -104 1988 3275 4248 Weight 106.367 kg 106.367 kg Lab Results: Accuchecks Date 05/23/17 Date 05/23/17 Accucheck Value: 208 Accucheck Value: 330 Accucheck Value: 230 Accucheck Value: 279 Lab Results-Last 24 Hours 05/23/17 Range/Units 05:49 NT-Pro-B Natriuret Pep 1889 H (0-125) pg/ml TSH 3rd Generation 11.095 H (0.358-3.740) mIU/L Radiology Exams: Radiology Procedures Category Date Time Status ECHO W/2D AND DOPPLER [US] Routine Exams 05/24/17 09:14 Ordered Multi-Disciplinary Progress Notes: Multi-Disciplinary Progress Notes 05/23/17 13:00 (created 05/23/17 13:36) Case Management Note by Ximena Alegria REPORTED TO DR. HOLLAND THAT PT'S OXYGEN LEVEL DIPPED DOWN TO 85% ON RA WITH ACTIVITY, BUT ACCORDING TO OXYGEN PROVIDER, PT'S INSURANCE WILL NOT PAY FOR HOME OXYGEN WITHOUT CHRONIC LUNG ISSUE. DR. HOLLAND REPORTS THAT SHE WANTS TO CANCEL PT DISCHARGE AND RECHECK HER SPO2 TOMORROW. Initialized on 05/23/17 13:36 - END OF NOTE 05/23/17 12:33 Respiratory Note by Yanique Aguilar PT'S O2 SAT ON ROOM AIR WHILE AT REST WAS 94%. PT'S O2 SAT ON ROOM AIR WHILE WALKING WAS 85%. PT WAS THEN PLACED ON 2LPM NASAL CANNULA. PT'S O2 SAT WHILE WALKING WITH 2LPM NASAL CANNULA WAS 93%. Initialized on 05/23/17 12:33 - END OF NOTE Assessment/Plan (1) Pneumonia Current Visit: Yes Status: Acute Assessment & Plan: continue rocephin and vanc, MRSA in wound. Code(s): J18.9 - PNEUMONIA, UNSPECIFIED ORGANISM (2) Cellulitis Current Visit: Yes Status: Acute Assessment & Plan: on vanc, MRSA sens. improving. Code(s): L03.90 - CELLULITIS, UNSPECIFIED (3) Diabetes mellitus Current Visit: Yes Status: Acute Code(s): E11.9 - TYPE 2 DIABETES MELLITUS WITHOUT COMPLICATIONS (4) Hypoxemia Current Visit: Yes Status: Acute Assessment & Plan: needs further evaluation, repeat chest xray. start IV lasix, has elevated BNP and TSH. will need treatment for hypothyroidism and echo to evaluate for chf. Code(s): R09.02 - HYPOXEMIA
[2017-05-24] MEDS: Protonix 40MG Tablet PO SCH (09:56)
[2017-05-24] MEDS: Zestril 20 MG PO SCH (09:56)
[2017-05-24] MEDS: TENORMIN 50 MG PO SCH (09:56)
[2017-05-24] MEDS: ZOLOFT 50 MG TABLET PO SCH (09:56)
[2017-05-24] MEDS: Neurontin 100 MG PO SCH ×2 (09:57→21:42)
[2017-05-24] MEDS: Lantus Insulin SQ SCH (09:57)
[2017-05-24] MEDS ORDERED: Lasix 20 MG/2 ML IV SCH (10:00)
--- NOTE | 2017-05-24 10:01 | XRAY ---
Indication: Hypoxia. CHF. Comparison: May 20, 2017. PA/lateral chest again demonstrates borderline cardiomegaly with interval worsening vascular congestion, pulmonary edema, and small bibasilar effusions favoring worsening CHF.
[2017-05-24] MEDS: Lasix 20 MG/2 ML IV SCH ×2 (10:37→16:29)
[2017-05-24] MEDS: Zanaflex 4 MG PO SCH (21:42)
[2017-05-24] MEDS: LIPITOR 40MG PO SCH (21:50)
[2017-05-24] MEDS: ROCEPHIN 1 Gm-D5w 50 ml Bag** 1 G/50 ML IVPB IV SCH (23:05)
[2017-05-25] MEDS: NORCO 5/325 MG PO PRN ×2 (03:15→09:20)
[2017-05-25 05:27] LABS: Mean Cell Volume 89.6 fl (78-100); Mean Platelet Volume 9.2 fl (6-9.5); Platelet Count 436 K/mm3 (150-450); Red Blood Count 3.38 M/mm3 (4.1-5.4); Red Cell Distribution Width 13.6 % (11.5-14.0); White Blood Count 8.7 K/mm3 (4.0-10.5)
[2017-05-25 05:45] LABS: Mean Corpuscular Hemoglobin 29.2 pg (26-32)
[2017-05-25 05:52] LABS: ANION GAP 10.1 MEQ/L (5-15); BLOOD UREA NITROGEN 9 mg/dL (9-20); CHLORIDE 104 mEq/L (98-107); Carbon Dioxide 30.6 mEq/L (21-32); Glucose 126 MG/DL (70-110); Potassium 3.5 mEq/L (3.5-5.1); SODIUM 141 mEq/L (136-145)
[2017-05-25 06:32] LABS: ANISOCYTOSIS 1+; Basophil 1 % (0.0-1.0); Eosinophil 1 % (0.00-3.0); Platelet Estimate NORMAL (NORMAL); Poikilocytosis 1+; Polychromasia 1+; Total Cells Counted 100
--- NOTE | 2017-05-25 08:19 | PCM.DS ---
Discharge Summary Date of Admission: 05/22/17 12:34 Admitting Physician: MALLORY ELLIOTT Primary Care Provider: FELISHA OLIVER Allergies Allergies codeine Allergy (Verified 05/20/17 17:19) ezetimibe [From Vytorin] Allergy (Verified 05/20/17 17:19) metformin [From Glucophage] Allergy (Verified 05/20/17 17:19) oxycodone [From Percocet] Allergy (Verified 05/20/17 17:19) prochlorperazine [From Compazine] Allergy (Verified 05/20/17 17:19) simvastatin [From Vytorin] Allergy (Verified 05/20/17 17:19) morphine Adverse Reaction (Verified 05/22/17 12:36) Hospital Summary - Hospital Course Hospital Course: patient was admitted with left breast abscess, s/p I and D wound culture grew MRSA. pain improving, doing better. also had pulmonary edema, was hydrated at [facility] per patient was told she was dehydrated. has diuresed well here, required oxygen during stay. will see if needs qualified before discharge, seems euvolemic at this time. - Vitals & Intake/Output Vital Signs: Vital Signs Temperature 98.1 F 05/25/17 04:00 Pulse Rate 83 05/25/17 04:00 Respiratory Rate 20 05/25/17 04:00 Blood Pressure 148/77 05/25/17 04:00 O2 Sat by Pulse Oximetry 93 L 05/25/17 04:00 Oxygen-Last Documented O2 Percentage 2 Liters = 28% Intake & Output: Intake & Output 05/22/17 05/23/17 05/24/17 05/25/17 11:59 11:59 11:59 11:59 Intake Total 3676 4248 1360 Output Total 400 4750 Balance 3276 4248 -3390 Weight 106.367 kg - Lab Result Diagrams: 05/25/17 05:10 05/25/17 05:10 Lab Results-Last 24 Hrs: Accuchecks Date 05/24/17 Time 22:00 Accucheck Value: 136 Accucheck Value: 130 Accucheck Value: 204 Accucheck Value: 209 Lab Results-Last 24 Hours 05/24/17 05/25/17 05/25/17 Range/Units 11:00 05:10 05:10 WBC 8.7 (4.0-10.5) K/mm3 RBC 3.38 L (4.1-5.4) M/mm3 Hgb 9.9 L (12.0-16.0) gm/dl Hct 30.3 L (35-47) % MCV 89.6 (78-100) fl MCH 29.2 (26-32) pg MCHC 32.7 (32-36) g/dl RDW 13.6 (11.5-14.0) % Plt Count 436 (150-450) K/mm3 MPV 9.2 (6-9.5) fl Segmented Neutrophils 71 H (36.0-66.0) % Lymphocytes (Manual) 22 L (24-44) % Monocytes (Manual) 5 (0.0-12.0) % Eosinophils (Manual) 1 (0.00-3.0) % Basophils (Manual) 1 (0.0-1.0) % Differential Comment ABNORMAL Platelet Estimate NORMAL (NORMAL) Polychromasia 1+ Poikilocytosis 1+ Anisocytosis 1+ Sodium 141 (136-145) mEq/L Potassium 3.5 (3.5-5.1) mEq/L Chloride 104 (98-107) mEq/L Carbon Dioxide 30.6 (21-32) mEq/L Anion Gap 10.1 (5-15) MEQ/L BUN 9 (9-20) mg/dL Creatinine 0.65 (0.55-1.30) mg/dl Estimated GFR > 60 ML/MIN Glucose 126 H (70-110) MG/DL Calcium 8.9 (8.5-10.1) mg/dL NT-Pro-B Natriuret Pep 2470 H (0-125) pg/ml Free T4 2.70 H (0.76-1.46) ng/dl Micro Results-Entire Visit: Microbiology 05/22/17 13:49 Gram Stain - Final Breast - Left Wound Culture - Final Methicillin Resist Staph Aur Accuchecks Date 05/24/17 Time 22:00 Accucheck Value: 136 Accucheck Value: 130 Accucheck Value: 204 Accucheck Value: 209 - Radiology Exams Ordered Rad Exams-Entire Visit: Radiology Procedures Category Date Time Status CHEST 2 VIEWS (PA AND LAT) Routine Exams 05/24/17 09:19 Completed ECHO W/2D AND DOPPLER [US] Routine Exams 05/24/17 09:14 Taken - Procedures and Test Procedures and Tests throughout Hospitalization: Therapy Orders & Screens 05/23/17 11:33 Qualify for Home Oxygen TODAY Comment: Diagnosis: Pneumonia Discharge Exam General Appearance: no apparent distress, alert Skin Exam: other (dressing intact to left lateral breast, adenopathy resolving.) Respiratory Exam: normal breath sounds, lungs clear, No respiratory distress Cardiovascular Exam: regular rate/rhythm, normal heart sounds Gastrointestinal/Abdomen Exam: soft, No tenderness, No mass Extremity Exam: normal inspection, normal range of motion Final Diagnosis/Problem List - Final Discharge Diagnosis/Problem (1) Pneumonia Current Visit: Yes Status: Acute (2) Cellulitis Current Visit: Yes Status: Acute (3) Diabetes mellitus Current Visit: Yes Status: Acute (4) Hypoxemia Current Visit: Yes Status: Acute - Discharge Disposition: Home, Self-Care Condition: Good Prescriptions: New Clindamycin HCl 300 mg PO QID #40 capsule Hydrocodone/Acetaminophen [[place] 5-325 Tablet] 1 each PO Q4H PRN #15 tablet PRN Reason: Pain Potassium Chloride 10 Meq Tab* [Klor Con 10 MEQ] 10 meq PO DAILY #10 tab Furosemide [Lasix] 20 mg PO DAILY #10 tablet Continue Lisinopril 40 mg PO DAILY Atenolol 25 mg PO DAILY Tizanidine HCl 4 mg [Zanaflex 4 MG] 4 mg PO HS Sitagliptin Phosphate [Januvia] 1 tab PO DAILY Sertraline HCl 100 mg [Zoloft 100 MG] 100 mg PO DAILY Insulin Lispro [Humalog] 20 unit SQ AC Insulin Glargine,Hum.rec.anlog [Lantus] 65 unit SQ QAM Cetirizine HCl [Zyrtec] 10 mg PO DAILY Atorvastatin Calcium [Lipitor 40Mg] 40 mg PO HS Albuterol Sulfate [Proair Hfa] 8.5 gm IH UD PRN PRN Reason: Shortness Of Breath/Wheezing Sumatriptan Succinate [Imitrex 50 mg] 50 mg PO Q8H PRN PRN PRN Reason: Migraine Gabapentin 100 mg PO BID Omeprazole 40 mg PO DAILY Naproxen Sodium [Naproxen Sodium Cr] 500 mg PO BID Tramadol HCl 50 mg PO Q4H PRN PRN PRN Reason: Pain Discontinued Amoxicillin/Potassium Clav [Augmentin 875-125 Tablet] 875 mg PO BID Instructions: Cellulitis -- Adult, Pneumonia -- Adult, Incision and Drainage of a Skin Abscess Additional Instructions: GO TO [facility] FOR YOUR WOUND CARE - DRESSING CHANGE. YOU WILL START TOMORROW, April AT 10:30 AM. YOU WILL NEED TO GO EVERYDAY UNTIL YOUR FOLLOWUP APPOINTMENT WITH DR. ESPINOZA ON May AT 9:25 AM. THE INFUSION CENTER IS LOCATED DIRECTLY A[address] FROM THE HOSPITAL ON [facility] IN THE [facility]. THIS IS DR. WOOTEN'S OLD OFFICE. Follow up with: ASHLEY ESPINOZA [COURTESY STAFF] - 05/29/17 9:25 am MALLORY ELLIOTT MD [ACTIVE STAFF] - 1 Week Forms: Discharge Instructions, Patient Portal Information
[2017-05-25] MEDS ORDERED: TROUGH DRUG LEVELS IJ ONE (08:20)
[2017-05-25] MEDS: PROVENTIL 2.5 MG/3 ML NEB IH PRN (09:00)
[2017-05-25 09:06] VITALS: PULSE 74; O2SAT 94
[2017-05-25] MEDS: Zestril 20 MG PO SCH (09:21)
[2017-05-25] MEDS: Neurontin 100 MG PO SCH (09:21)
[2017-05-25] MEDS: TENORMIN 50 MG PO SCH (09:22)
[2017-05-25] MEDS: Lasix 20 MG/2 ML IV SCH (09:23)
[2017-05-25] MEDS: ZOLOFT 50 MG TABLET PO SCH (09:23)
[2017-05-25] MEDS: Protonix 40MG Tablet PO SCH (09:23)
[2017-05-25 09:24] VITALS: BP 108/68
[2017-05-25] MEDS: Lantus Insulin SQ SCH (09:30)
--- NOTE | 2017-05-29 09:28 | ECHO ---
DATE OF PROCEDURE: 05/24/2017 PROCEDURE: 2D echocardiogram and Doppler. INDICATION: Congestive heart failure. MEASUREMENTS: Intraventricular septum 1.6 cm. Posterior wall thickness 1.5 cm. The chamber size and aortic root size were all within normal limits. DESCRIPTION OF PROCEDURE: Overall left ventricular systolic function is within normal limits. There is mild concentric left ventricular hypertrophy. There are no wall motion abnormalities. There is no pericardial effusion or intracardiac masses. This is a technically difficult study. The mitral valve appears grossly normal. The tricuspid valve appears grossly normal. There is mild pulmonic insufficiency. The aortic valve opens well with no evidence of aortic stenosis. No mitral stenosis. There is no definite aortic insufficiency. The E to A wave ratio is less than 1. IMPRESSION: 1) Technically difficult study. 2) Preserved left ventricular systolic fraction. 3) Mild concentric left ventricular hypertrophy. 4) Mild pulmonic regurgitation. 5) Abnormal relaxation consistent with mild diastolic dysfunction.
== END 2017-05-25 12:05 | disposition home or self-care (01) | DRG 989 ==
LOC: ED 17:06 → UNDOADMOB 19:50 → INTOOBSV 19:50 → OBSVTOIN 19:50 → MED SURG 19:50 → INTOOBSV 05-22 12:34 → OBSVTOIN 05-22 12:34 → UNDODISIN 05-25 12:05
PROVIDERS: ADMIT Family Medicine; ATTEND Family Medicine
PROC: 07B60ZX Excision of Left Axillary Lymphatic, Open Approach, Diagnostic (ICD-10-PCS; principal; 2017-05-22)
DX: J18.9 Pneumonia, unspecified organism (principal); N61.1 Abscess of the breast and nipple; R59.9 Enlarged lymph nodes, unspecified; B95.62 Methicillin resistant Staphylococcus aureus infection as the cause of diseases classified elsewhere; R09.02 Hypoxemia; I50.9 Heart failure, unspecified; E11.9 Type 2 diabetes mellitus without complications; I10 Essential (primary) hypertension; J44.9 Chronic obstructive pulmonary disease, unspecified; J45.909 Unspecified asthma, uncomplicated; I34.1 Nonrheumatic mitral (valve) prolapse; F41.9 Anxiety disorder, unspecified; Z86.14 Personal history of Methicillin resistant Staphylococcus aureus infection
CPT/HCPCS: 00400; 36000; 36415; 71020; 71260; 80048; 80053; 80202; 81002; 82962; 83036; 83605; 83880; 84439; 84443; 85025; 87040; 87070; 87077; 87186; 88305; 93005; 93306; 94640; 94760; 96360; 96361; 96374; 96375; 99140; 99285; G0378; J0696; J1100; J1170; J1885; J1940; J2250; J2270; J2310; J2405; J2704; J3010; J3370; A9270-GY

== ENCOUNTER 2017-05-26 09:34 | Emergency (ER) | payer OTHER ==
[2017-05-26] MEDS ORDERED: PROVENTIL 2.5 MG/3 ML NEB IH ONE ×2 (09:51)
--- NOTE | 2017-05-26 09:58 | ERPHSYRPT ---
- History of Present Illness Time Seen by Provider: 05/26/17 09:37 Source: patient, family (son) Physician History: CC: short of air Hx: 52 y/o patient was recently admitted for breast/axilla abscess. She had drainage procedure. She went home yesterday. She had some shortness of breath and was diuresed. Prelim EF on echo was 72%. She went home on oxygen. She has remote mild seasonal asthma but no chronic lung disease known. No chest pain. No fever or chills. She is on current abtx for abscess. She has hx of DM. Timing/Duration: today (worse) Allergies/Adverse Reactions: codeine Allergy (Verified 05/20/17 17:19) ezetimibe [From Vytorin] Allergy (Verified 05/20/17 17:19) metformin [From Glucophage] Allergy (Verified 05/20/17 17:19) oxycodone [From Percocet] Allergy (Verified 05/20/17 17:19) prochlorperazine [From Compazine] Allergy (Verified 05/20/17 17:19) simvastatin [From Vytorin] Allergy (Verified 05/20/17 17:19) morphine Adverse Reaction (Verified 05/22/17 12:36) Home Medications: Atenolol 25 mg PO DAILY 09/22/16 [History] Cetirizine HCl [Zyrtec] 10 mg PO DAILY 09/22/16 [History] Insulin Glargine,Hum.rec.anlog [Lantus] 65 unit SQ QAM 09/22/16 [History] Insulin Lispro [Humalog] 20 unit SQ AC 09/22/16 [History] Lisinopril 40 mg PO DAILY 09/22/16 [History] Sertraline HCl 100 mg [Zoloft 100 MG] 100 mg PO DAILY 09/22/16 [History] Sitagliptin Phosphate [Januvia] 1 tab PO DAILY 09/22/16 [History] Tizanidine HCl 4 mg [Zanaflex 4 MG] 4 mg PO HS 09/22/16 [History] Atorvastatin Calcium [Lipitor 40Mg] 40 mg PO HS 04/17/17 [History] Albuterol Sulfate [Proair Hfa] 8.5 gm IH UD PRN 05/20/17 [History] Gabapentin 100 mg PO BID 05/20/17 [History] Naproxen Sodium [Naproxen Sodium Cr] 500 mg PO BID 05/20/17 [History] Omeprazole 40 mg PO DAILY 05/20/17 [History] Sumatriptan Succinate [Imitrex 50 mg] 50 mg PO Q8H PRN PRN 05/20/17 [History] Tramadol HCl 50 mg PO Q4H PRN PRN 05/20/17 [History] Hx Tetanus, Diphtheria Vaccination/Date Given: No - Review of Systems Constitutional: Malaise, Weakness, No Fever, No Chills Eyes: No Symptoms Ears, Nose, & Throat: No Symptoms Respiratory: Dyspnea, No Cough Cardiac: No Chest Pain Abdominal/Gastrointestinal: No Abdominal Pain Skin: No Rash Neurological: No Headache All Other Systems: Reviewed and Negative - Past Medical History Pertinent Past Medical History: Yes Neurological History: No Pertinent History Cardiac History: Hypertension, Other Respiratory History: Asthma Endocrine Medical History: Diabetes Type II Musculoskeletal History: Degenerative Disk Disease, Other Other Medical History: Mitral Valve Prolapse, R KNEE MENSICUS TEAR W/ REPAIR, plantar fascia - Past Surgical History Past Surgical History: Yes Gastrointestinal: Cholecystectomy, Hernia Repair Musculoskeletal: Orthopedic Surgery Female Surgical History: Tubal Ligation Other Surgical History: carpal tunel repair in right hand - Social History Smoking Status: Former smoker Exposure to second hand smoke: No Drug Use: none Patient Lives Alone: No - Nursing Vital Signs Nursing Vital Signs: Initial Vital Signs Temperature 98.4 F Temperature Source Oral Pulse Rate 88 Respiratory Rate 18 Blood Pressure [Right Arm] 124/58 Pain Intensity 0 - Physical Exam General Appearance: alert Eye Exam: PERRL/EOMI Neck Exam: normal inspection, non-tender, supple Respiratory Exam: crackles/rales (both bases) Cardiovascular/Chest Exam: normal heart sounds, regular rate/rhythm Abdominal/Gastrointestinal Exam: soft, No tenderness, No distention Extremity Exam: no calf tenderness, no pedal edema Neurologic Exam: alert, oriented x 3, cooperative, sensation nml, No motor deficits Skin Exam: warm, dry, No rash SpO2 Interpretation: normal SpO2: 94 Oxygen Delivery: Nasal Cannula - Course Nursing assessment & vital signs reviewed: Yes EKG Interpreted by Me: RATE (86), Sinus Rhythm, NORMAL AXIS, NORMAL INTERVALS ( QTc 464), NORMAL ST-T, Other (Poor R wave progression) Ordered Tests: Active Orders 24 hr Category Date Time Status Power Transformer Inspector STAT Care 05/26/17 09:51 Active EKG-ER Only STAT Care 05/26/17 09:51 Active IV Insertion STAT Care 05/26/17 09:51 Active Oxygen-ED Only NASAL CANNULA 2 lpm Care 05/26/17 09:51 Active CHEST 2 VIEWS (PA AND LAT) Stat Exams 05/26/17 09:52 Completed CHEST WITH CONTRAST [CT] Stat Exams 05/26/17 10:44 Completed BLOOD CULTURE Stat Lab 05/26/17 12:28 Ordered CBC W DIFF Stat Lab 05/26/17 10:05 Completed CMP Stat Lab 05/26/17 10:05 Completed D-DIMER QUANTITATION Stat Lab 05/26/17 10:05 Completed Lactic Acid Stat Lab 05/26/17 09:51 Completed Manual Differential NC Stat Lab 05/26/17 10:05 Completed NT PRO BNP Stat Lab 05/26/17 10:05 Completed TROPONIN Stat Lab 05/26/17 10:05 Completed VENOUS BLOOD GAS Stat Lab 05/26/17 09:51 Completed Respiratory Nebulizer STAT RT 05/26/17 09:52 Completed Medication Summary Generic Name Dose Route Start Last Admin Trade Name Freq PRN Reason Stop Dose Admin Ceftriaxone Sodium/Dextrose 1 g in 50 mls @ 100 mls/hr 05/26/17 12:27 Rocephin 1 Gm-D5w 50 Ml Bag IV 05/26/17 12:56 STAT STA Discontinued Medications Generic Name Dose Route Start Last Admin Trade Name Freq PRN Reason Stop Dose Admin Albuterol Sulfate 2.5 mg 05/26/17 09:51 05/26/17 09:54 Proventil 2.5 Mg/3 Ml Neb IH 05/26/17 09:52 2.5 mg STAT ONE Administration Albuterol Sulfate Confirm 05/26/17 09:51 Proventil 2.5 Mg/3 Ml Neb Administered 05/26/17 09:52 Dose 2.5 mg IH .STK-MED ONE Furosemide 40 mg 05/26/17 11:49 05/26/17 11:55 Lasix 40 Mg/4 Ml IV 05/26/17 11:50 40 mg STAT ONE Administration Furosemide Confirm 05/26/17 11:53 Lasix 40 Mg/4 Ml Administered 05/26/17 11:54 Dose 40 mg .ROUTE .STK-MED ONE Lab/Rad Data: Laboratory Result Diagrams 05/26/17 10:05 05/26/17 10:05 Laboratory Results 05/26/17 05/26/17 05/26/17 Range/Units 10:05 10:05 10:05 WBC 12.5 H (4.0-10.5) K/mm3 RBC 3.70 L (4.1-5.4) M/mm3 Hgb 10.7 L (12.0-16.0) gm/dl Hct 33.4 L (35-47) % MCV 90.3 (78-100) fl MCH 28.9 (26-32) pg MCHC 32.0 (32-36) g/dl RDW 14.1 H (11.5-14.0) % Plt Count 476 H (150-450) K/mm3 MPV 9.1 (6-9.5) fl Segmented Neutrophils 88 H (36.0-66.0) % Lymphocytes (Manual) 11 L (24-44) % Monocytes (Manual) 1 (0.0-12.0) % Differential Comment ABNORMAL Platelet Estimate NORMAL (NORMAL) Polychromasia 1+ Poikilocytosis 1+ Anisocytosis 1+ D-Dimer 2212 H* (0-500) ng/mL VBG pH (7.32-7.42) VBG pCO2 at Pat Temp (42-55) mm/Hg VBG pO2 at Pat Temp (25-40) mm/Hg VBG HCO3 (22-28) meq/L VBG O2 Sat (Milena) (95-100) VBG Base Excess (-2.0-2.0) VBG Hemoglobin VBG Carboxyhemoglobin (0.0-6.9) % T HGB POC Potassium (3.5-5.1) Sodium 139 (136-145) mEq/L Potassium 3.7 (3.5-5.1) mEq/L Chloride 101 (98-107) mEq/L Carbon Dioxide 29.1 (21-32) mEq/L Anion Gap 12.3 (5-15) MEQ/L BUN 7 L (9-20) mg/dL Creatinine 0.69 (0.55-1.30) mg/dl Estimated GFR > 60 ML/MIN Glucose 295 H (70-110) MG/DL Lactic Acid (0.4-2.0) Calcium 9.2 (8.5-10.1) mg/dL Total Bilirubin 0.30 (0.2-1.0) mg/dL AST 20 (15-37) U/L ALT 20 (12-78) U/L Alkaline Phosphatase 181 H (46-116) U/L Troponin I < 0.017 (0.000-0.056) ng/ml NT-Pro-B Natriuret Pep 2282 H (0-125) pg/ml Serum Total Protein 7.3 (6.4-8.2) gm/dL Albumin 2.1 L (3.4-5.0) g/dL 05/26/17 Range/Units 09:51 WBC (4.0-10.5) K/mm3 RBC (4.1-5.4) M/mm3 Hgb (12.0-16.0) gm/dl Hct (35-47) % MCV (78-100) fl MCH (26-32) pg MCHC (32-36) g/dl RDW (11.5-14.0) % Plt Count (150-450) K/mm3 MPV (6-9.5) fl Segmented Neutrophils (36.0-66.0) % Lymphocytes (Manual) (24-44) % Monocytes (Manual) (0.0-12.0) % Differential Comment Platelet Estimate (NORMAL) Polychromasia Poikilocytosis Anisocytosis D-Dimer (0-500) ng/mL VBG pH 7.45 H (7.32-7.42) VBG pCO2 at Pat Temp 46 (42-55) mm/Hg VBG pO2 at Pat Temp 33 (25-40) mm/Hg VBG HCO3 32.0 H* (22-28) meq/L VBG O2 Sat (Milena) 68.7 L (95-100) VBG Base Excess 7.1 H (-2.0-2.0) VBG Hemoglobin 11.0 VBG Carboxyhemoglobin 1.2 (0.0-6.9) % T HGB POC Potassium 3.8 (3.5-5.1) Sodium (136-145) mEq/L Potassium (3.5-5.1) mEq/L Chloride (98-107) mEq/L Carbon Dioxide (21-32) mEq/L Anion Gap (5-15) MEQ/L BUN (9-20) mg/dL Creatinine (0.55-1.30) mg/dl Estimated GFR ML/MIN Glucose (70-110) MG/DL Lactic Acid 1.7 (0.4-2.0) Calcium (8.5-10.1) mg/dL Total Bilirubin (0.2-1.0) mg/dL AST (15-37) U/L ALT (12-78) U/L Alkaline Phosphatase (46-116) U/L Troponin I (0.000-0.056) ng/ml NT-Pro-B Natriuret Pep (0-125) pg/ml Serum Total Protein (6.4-8.2) gm/dL Albumin (3.4-5.0) g/dL - Progress Progress Note: 05/26/17 12:34 Worsened pulmonary edema on CTA. No PE. Mild RUL airspace disease. Pt afebrile. This appears to be pulmonary edema. Has not had blood transfusion. Called Dr Mendez. He advised transfer to cardiology. Spoke to Dr Carter Ace who accepts transfer to [place]. Counseled pt/family regarding: lab results, diagnosis, need for follow-up, rad results - Departure Time of Disposition: 12:34 Departure Disposition: Transfer Clinical Impression: SOB (shortness of breath), Pulmonary edema, post left axiallary abscess drainage Condition: Fair Critical Care Time: No Referrals: MALLORY MENDEZ MD [Primary Care Provider] -
[2017-05-26 10:11] LABS: Lactic Acid 1.7 (0.4-2.0); VBG BASE EXCESS 7.1 (-2.0-2.0); VBG CARBOXYHEMOGLOBIN 1.2 % T HGB (0.0-6.9); VBG O2 SATURATION 68.7 (95-100); VBG POTASSIUM 3.8 (3.5-5.1); VBG pH 7.45 (7.32-7.42)
[2017-05-26 10:14] LABS: Mean Cell Volume 90.3 fl (78-100); Mean Corpuscular Hemoglobin 28.9 pg (26-32); Mean Platelet Volume 9.1 fl (6-9.5); Platelet Count 476 K/mm3 (150-450); Red Cell Distribution Width 14.1 % (11.5-14.0); White Blood Count 12.5 K/mm3 (4.0-10.5)
--- NOTE | 2017-05-26 10:34 | XRAY ---
Indication: Short of breath. Comparison: 2 days ago. PA/lateral chest again demonstrates borderline cardiomegaly, vascular congestion, pulmonary edema, and small bibasilar effusions favoring cardiac decompensation. Superimposed pneumonia not completely excluded.
[2017-05-26 10:36] LABS: Total Cells Counted 100
[2017-05-26 10:37] LABS: ANISOCYTOSIS 1+; Poikilocytosis 1+; Polychromasia 1+
[2017-05-26 10:38] LABS: Platelet Estimate NORMAL (NORMAL)
[2017-05-26 10:46] LABS: ALBUMIN 2.1 g/dL (3.4-5.0); ALKALINE PHOSPHATASE 181 U/L (46-116); ANION GAP 12.3 MEQ/L (5-15); BLOOD UREA NITROGEN 7 mg/dL (9-20); CHLORIDE 101 mEq/L (98-107); Carbon Dioxide 29.1 mEq/L (21-32); Glucose 295 MG/DL (70-110); Potassium 3.7 mEq/L (3.5-5.1); SGOT/AST 20 U/L (15-37); SGPT/ALT 20 U/L (12-78); SODIUM 139 mEq/L (136-145); Total Protein 7.3 gm/dL (6.4-8.2)
[2017-05-26 10:47] LABS: TROPONIN < 0.017 ng/ml (0.000-0.056)
[2017-05-26] MEDS ORDERED: Lasix 40 MG/4 ML IV ONE (11:49)
[2017-05-26] MEDS ORDERED: Lasix 40 MG/4 ML ONE (11:53)
--- NOTE | 2017-05-26 12:04 | XRAY ---
Indication: Short of breath. Elevated d-dimer. Multiple contiguous axial images obtained through the chest using 80 cc Isovue 370 contrast and PE protocol. Comparison: May 21, 2017. There is adequate opacification of the pulmonary arteries. No filling defect or pulmonary embolus. Heart remains borderline enlarged. Aorta is normal in course and caliber. No pathologic mediastinal/hilar lymphadenopathy. Stable small hiatal hernia. Examination of the lung parenchyma demonstrates worsening moderate bilateral pleural effusions with stable bilateral dependent atelectasis. New right upper lobe patchy airspace opacities. Previous left axillary lymphadenitis incompletely visualized with new surgical clips and air bubbles related to recent surgery. Bony thorax intact again with minimal degenerative changes throughout the spine. Limited upper abdomen again demonstrates mild fatty liver and previous cholecystectomy. Impression: 1. Negative for pulmonary embolus. 2. Again borderline cardiomegaly and worsening bilateral pleural effusions concerning for cardiac decompensation versus fluid overload. 3. New right upper lobe patchy airspace disease. 4. Again left axillary lymphadenitis incompletely visualized with now postsurgical changes 5. Stable small hiatal hernia and fatty liver. CTDI 28.13
[2017-05-26] MEDS ORDERED: ROCEPHIN 1 Gm-D5w 50 ml Bag** 1 G/50 ML IVPB IV STA (12:27)
[2017-05-26] MEDS ORDERED: NovoLOG Insulin SQ ONE (12:36)
[2017-05-26] MEDS ORDERED: ROCEPHIN 1 Gm-D5w 50 ml Bag** 1 G/50 ML IVPB IV ONE (12:37)
[2017-05-26] MEDS ORDERED: NovoLOG Insulin ONE (12:44)
[2017-05-26 14:36] VITALS: BP 155/90; PULSE 98; O2SAT 95
== END 2017-05-26 14:45 | disposition short-term general hospital (02) ==
LOC: ED 09:34
DX: R06.02 Shortness of breath (principal); J81.1 Chronic pulmonary edema; L76.82 Other postprocedural complications of skin and subcutaneous tissue; Z79.899 Other long term (current) drug therapy; I10 Essential (primary) hypertension; E11.9 Type 2 diabetes mellitus without complications
CPT/HCPCS: 36000; 36415; 71020; 71260; 80053; 82805; 82962; 83605; 83880; 84484; 85025; 85379; 87040; 93005; 93041; 94640; 96365; 96372; 96374; 99285; J0696; J1940; A9270-GY

== ENCOUNTER 2017-11-27 18:57 | Emergency (ER) | payer OTHER ==
[2017-11-27] MEDS ORDERED: NORCO 5/325 MG PO ONE ×2 (19:35)
[2017-11-27] MEDS ORDERED: CEFTIN 500 MG PO ONE (19:36)
[2017-11-27] MEDS ORDERED: NORCO 5/325 MG ONE ×2 (19:40)
--- NOTE | 2017-11-27 19:43 | ERPHSYRPT ---
- History of Present Illness Time Seen by Provider: 11/27/17 19:27 Source: patient, family Patient Subjective Stated Complaint: right sided facial swelling and pain to the right side of the face since yesterday.. no injury Triage Nursing Assessment: alert oriented. able to ambulate to the room.. states right sided facial swelling starting yesterday.. no known injury.. states thought it may be a sinus thing. rare non productive cough.. denies fever. Physician History: CC: right facial pain Hx: Right facial pain and some swelling. No redness. She sneezed and made it worse. No fever or chills. Mild rhinorrhea. She had DM and sugars 200. She had recent vomiting and diarrhea which has resolved. She has hx of CHF. Not short of breath. No tooth problem. She has remote MRSA. She sees Dr Elliott. Timing/Duration: gradual onset Severity: severe ENT Location: facial (right) Allergies/Adverse Reactions: codeine Allergy (Verified 05/20/17 17:19) ezetimibe [From Vytorin] Allergy (Verified 05/20/17 17:19) metformin [From Glucophage] Allergy (Verified 05/20/17 17:19) oxycodone [From Percocet] Allergy (Verified 05/20/17 17:19) prochlorperazine [From Compazine] Allergy (Verified 05/20/17 17:19) simvastatin [From Vytorin] Allergy (Verified 05/20/17 17:19) morphine Adverse Reaction (Verified 05/22/17 12:36) Home Medications: Atenolol 25 mg PO DAILY 09/22/16 [History] Cetirizine HCl [Zyrtec] 10 mg PO DAILY 09/22/16 [History] Insulin Glargine,Hum.rec.anlog [Lantus] 65 unit SQ QAM 09/22/16 [History] Insulin Lispro [Humalog] 20 unit SQ AC 09/22/16 [History] Sertraline HCl 100 mg [Zoloft 100 MG] 150 mg PO DAILY 09/22/16 [History] Sitagliptin Phosphate [Januvia] 1 tab PO DAILY 09/22/16 [History] Tizanidine HCl 4 mg [Zanaflex 4 MG] 4 mg PO TID 09/22/16 [History] Atorvastatin Calcium [Lipitor 40Mg] 40 mg PO DAILY 04/17/17 [History] Albuterol Sulfate [Proair Hfa] 8.5 gm IH UD PRN 05/20/17 [History] Naproxen Sodium [Naproxen Sodium Cr] 500 mg PO BID 05/20/17 [History] Bisoprolol Fumarate 5 mg PO DAILY 11/27/17 [History] Furosemide [Lasix] 40 mg PO BID 11/27/17 [History] Losartan Potassium 100 mg PO DAILY 11/27/17 [History] Omeprazole 20 MG [Prilosec 20 mg] 20 mg PO DAILY 11/27/17 [History] Pregabalin [Lyrica 100Mg] 100 mg PO TID 11/27/17 [History] Hx Tetanus, Diphtheria Vaccination/Date Given: No Immunizations Up to Date: (unknown) - Review of Systems Constitutional: No Fever, No Chills Eyes: No Vision Changes, No Double Vision Ears, Nose, & Throat: Nose Pain, Nose Congestion, Other (right facial pain), No Ear Pain Respiratory: No Cough, No Dyspnea Cardiac: No Chest Pain Abdominal/Gastrointestinal: No Abdominal Pain, No Nausea, No Vomiting, No Diarrhea Skin: No Rash Neurological: No Symptoms All Other Systems: Reviewed and Negative - Past Medical History Pertinent Past Medical History: Yes Neurological History: No Pertinent History Cardiac History: Hypertension, Other Respiratory History: Asthma Endocrine Medical History: Diabetes Type II Musculoskeletal History: Degenerative Disk Disease, Other Other Medical History: Mitral Valve Prolapse, R KNEE MENSICUS TEAR W/ REPAIR, plantar fascia - Past Surgical History Past Surgical History: Yes Gastrointestinal: Cholecystectomy, Hernia Repair Musculoskeletal: Orthopedic Surgery Female Surgical History: Tubal Ligation Other Surgical History: carpal tunel repair in right hand - Social History Smoking Status: Never smoker Exposure to second hand smoke: No Drug Use: none Patient Lives Alone: No - Female History Hx Now: No - Nursing Vital Signs Nursing Vital Signs: Initial Vital Signs Temperature 97.8 F 11/27/17 19:17 Pulse Rate 112 H 11/27/17 19:17 Respiratory Rate 20 11/27/17 19:17 Blood Pressure 169/107 11/27/17 19:17 O2 Sat by Pulse Oximetry 95 11/27/17 19:17 Pain Scale Pain Intensity 7 - Physical Exam General Appearance: alert, other (pleasant lady) Eye Exam: bilateral eye: PERRL, EOMI Ear Exam: bilateral ear: TM normal Nasal Exam: normal inspection Throat Exam: normal, pharynx normal, maxillary swelling (right right maxillary sinus tenderness, no facial cellulitis), moist mucus membranes, No dental tenderness, No mandibular swelling, No tonsillar exudate Neck Exam: normal inspection, non-tender, supple Cardiovascular/Respiratory Exam: chest non-tender, normal breath sounds, regular rate/rhythm Neurologic Exam: alert, oriented x 3, cooperative, sensation nml, No motor deficits Skin Exam: warm, dry, No rash SpO2 Interpretation: normal SpO2: 95 Oxygen Delivery: Room Air - Course Nursing assessment & vital signs reviewed: Yes Ordered Tests: Active Orders 24 hr Category Date Time Status Accucheck STAT Care 11/27/17 19:35 Active Medication Summary Discontinued Medications Generic Name Dose Route Start Last Admin Trade Name Freq PRN Reason Stop Dose Admin Hydrocodone Bitart/Acetaminophen 1 tab 11/27/17 19:35 Sabin 5/325 Mg PO 11/27/17 19:36 STAT ONE Hydrocodone Bitart/Acetaminophen 2 tab 11/27/17 19:35 Sabin 5/325 Mg PO 11/27/17 19:36 SENT HOME W/ PATIENT ONE Cefuroxime Axetil 500 mg 11/27/17 19:36 Ceftin 500 Mg PO 11/27/17 19:37 STAT ONE - Progress Progress Note: 11/27/17 19:41 Will Rx for sinusitis as she has severe right maxillary tenderness. It was aggravated with sneezing. Instr given. Advised no afrin as she was using that. 11/27/17 19:42 BP right arm 145/79 with appropriately applied cuff. Counseled pt/family regarding: diagnosis, need for follow-up - Departure Time of Disposition: 19:42 Departure Disposition: Home Clinical Impression: Right maxillary sinusitis Condition: Stable Critical Care Time: No Referrals: MALLORY ELLIOTT MD [Primary Care Provider] - Instructions: Sinusitis Additional Instructions: Do not use afrin. Return for double vision, confusion, facial redness, high fever, or concerns. See Dr Elliott Monday for recehck. You need to watch your sugars. Rx nasonex. Rx ceftin. Rx norco. Prescriptions: Hydrocodone Bit/Acetaminophen [Sabin 5-325 Tablet] 1 each PO Q6H PRN PRN #10 tablet MDD 4 PRN Reason: Pain Cefuroxime Axetil 500 mg [Ceftin 500 mg] 1 tab PO BID #20 tablet Mometasone Furoate [Nasonex] 0 gm NS UD #1 spray.pump
[2017-11-27] MEDS ORDERED: NovoLOG Insulin SQ ONE (19:48)
[2017-11-27] MEDS ORDERED: NovoLOG Insulin ONE (19:53)
[2017-11-27 20:29] VITALS: BP 149/90; PULSE 91; O2SAT 97
== END 2017-11-27 20:30 | disposition home or self-care (01) ==
LOC: ED 18:57
DX: J32.0 Chronic maxillary sinusitis (principal); Z86.14 Personal history of Methicillin resistant Staphylococcus aureus infection; I50.9 Heart failure, unspecified; I10 Essential (primary) hypertension; J45.909 Unspecified asthma, uncomplicated; E11.9 Type 2 diabetes mellitus without complications; Z79.4 Long term (current) use of insulin; I34.1 Nonrheumatic mitral (valve) prolapse; Z79.899 Other long term (current) drug therapy
CPT/HCPCS: 82962; 99283; A9270-GY

== ENCOUNTER 2017-11-29 07:12 | Emergency (ER) | payer OTHER ==
[2017-11-29 07:36] VITALS: O2SAT 96
--- NOTE | 2017-11-29 07:39 | ERPHSYRPT ---
- History of Present Illness Time Seen by Provider: 11/29/17 07:38 Source: patient Patient Subjective Stated Complaint: right facial pain and swelling Triage Nursing Assessment: tender to right face. no swelling noted at this time. Physician History: The patient is a 52-year-old obese female with her son who comes in for the second time to this ER for the same complaint. She complains of right sinus pain and facial swelling that began Monday or 4 days ago. She came to this ER on Monday evening and was given an antibiotic, Nasonex, and [place] prescriptions. She is taken the antibiotic for 24 hours. She said her face is no better. Her swelling is still there. The [place] are not relieving the pain at all. She did not see her primary care doctor about this. Her past medical history is significant for diabetes, back pain, GERD, hypertension, and high cholesterol. Timing/Duration: gradual onset, days (4) Severity: moderate ENT Location: facial Prearrival Treatment: prescription meds Associated Symptoms: sinus infection Allergies/Adverse Reactions: codeine Allergy (Verified 11/29/17 07:24) ezetimibe [From Vytorin] Allergy (Verified 11/29/17 07:24) metformin [From Glucophage] Allergy (Verified 11/29/17 07:24) oxycodone [From Percocet] Allergy (Verified 11/29/17 07:24) prochlorperazine [From Compazine] Allergy (Verified 11/29/17 07:24) simvastatin [From Vytorin] Allergy (Verified 11/29/17 07:24) morphine Adverse Reaction (Verified 11/29/17 07:24) Home Medications: Cetirizine HCl [Zyrtec] 10 mg PO DAILY 09/22/16 [History] Insulin Glargine,Hum.rec.anlog [Lantus] 40 unit SQ QAM 09/22/16 [History] Insulin Lispro [Humalog] 20 unit SQ AC 09/22/16 [History] Sertraline HCl 100 mg [Zoloft 100 MG] 150 mg PO DAILY 09/22/16 [History] Tizanidine HCl 4 mg [Zanaflex 4 MG] 4 mg PO TID 09/22/16 [History] Atorvastatin Calcium [Lipitor 40Mg] 40 mg PO DAILY 04/17/17 [History] Albuterol Sulfate [Proair Hfa] 8.5 gm IH UD PRN 05/20/17 [History] Naproxen Sodium [Naproxen Sodium Cr] 500 mg PO BID 05/20/17 [History] Bisoprolol Fumarate 5 mg PO DAILY 11/27/17 [History] Furosemide [Lasix] 40 mg PO BID 11/27/17 [History] Losartan Potassium 100 mg PO DAILY 11/27/17 [History] Omeprazole 20 MG [Prilosec 20 mg] 20 mg PO DAILY 11/27/17 [History] Pregabalin [Lyrica 100Mg] 100 mg PO TID 11/27/17 [History] Hx Tetanus, Diphtheria Vaccination/Date Given: Yes Hx Influenza Vaccination/Date Given: Yes Hx Pneumococcal Vaccination/Date Given: Yes - Review of Systems Constitutional: No Fever Eyes: No Symptoms Ears, Nose, & Throat: Sinus Drainage Respiratory: No Cough, No Dyspnea Cardiac: No Chest Pain, No Edema, No Syncope Abdominal/Gastrointestinal: No Abdominal Pain, No Nausea, No Vomiting, No Diarrhea Genitourinary Symptoms: No Dysuria Musculoskeletal: No Back Pain, No Neck Pain Skin: No Rash Neurological: No Dizziness, No Focal Weakness, No Sensory Changes Psychological: No Symptoms Endocrine: No Symptoms Hematologic/Lymphatic: No Symptoms Immunological/Allergic: No Symptoms All Other Systems: Reviewed and Negative - Past Medical History Pertinent Past Medical History: Yes Neurological History: No Pertinent History Cardiac History: Hypertension, Other Respiratory History: Asthma Endocrine Medical History: Diabetes Type II Musculoskeletal History: Degenerative Disk Disease, Other Other Medical History: Mitral Valve Prolapse, R KNEE MENSICUS TEAR W/ REPAIR, plantar fascia - Past Surgical History Past Surgical History: Yes Gastrointestinal: Cholecystectomy, Hernia Repair Musculoskeletal: Orthopedic Surgery Female Surgical History: Tubal Ligation Other Surgical History: carpal tunel repair in right hand - Social History Smoking Status: Never smoker Exposure to second hand smoke: No Drug Use: none Patient Lives Alone: No - Female History Hx Last Menstrual Period: 05/13 Hx Now: No - Nursing Vital Signs Nursing Vital Signs: Initial Vital Signs Temperature 99.2 F 11/29/17 07:20 Pulse Rate 94 H 11/29/17 07:20 Respiratory Rate 16 11/29/17 07:20 Blood Pressure 138/69 11/29/17 07:20 O2 Sat by Pulse Oximetry 96 11/29/17 07:20 Pain Scale Pain Intensity 8 - Physical Exam General Appearance: moderate distress Eye Exam: bilateral eye: PERRL, EOMI Ear Exam: bilateral ear: TM normal Nasal Exam: sinus tenderness (right maxillary) Throat Exam: pharynx normal, moist mucus membranes, No tonsillar exudate Neck Exam: supple Cardiovascular/Respiratory Exam: normal breath sounds, regular rate/rhythm Abdominal Exam: non-tender, soft Neurologic Exam: alert, oriented x 3, sensation nml, No motor deficits Skin Exam: normal color, warm, dry SpO2 Interpretation: normal SpO2: 96 Oxygen Delivery: Room Air Ordered Tests: Medication Summary Discontinued Medications Generic Name Dose Route Start Last Admin Trade Name Freq PRN Reason Stop Dose Admin Ketorolac Tromethamine 60 mg 11/29/17 07:55 Toradol 30 Mg Injection IM 11/29/17 07:56 STAT ONE - Progress Progress: unchanged Counseled pt/family regarding: diagnosis, need for follow-up - Departure Time of Disposition: 08:03 Departure Disposition: Home Clinical Impression: Sinusitis Condition: Stable Critical Care Time: No Referrals: MALLORY ELLIOTT MD [Primary Care Provider] - Additional Instructions: You have right sided maxillary sinusitis. Stopped taking the first antibiotic you were given. Take azithromycin 500 mg once a day for 3 days. For pain take the total lack 400 mg every 8 hours as needed. You were also given a Toradol 60 mg IM injection in the ER. Use Afrin [id number] nasal spray instead of nasal next. After opening up your sinuses with Afrin, inhale warm humid air. Follow-up with Dr. Elliott in 1-2 days. Prescriptions: Etodolac 400 mg [Lodine 400 mg] 400 mg PO Q8H PRN PRN #20 tablet PRN Reason: Pain Azithromycin 500 mg PO DAILY #3 tablet
[2017-11-29] MEDS ORDERED: TORAdol 30 mg Injection IM ONE (07:55)
[2017-11-29] MEDS ORDERED: TORAdol 30 mg Injection ONE (07:56)
[2017-11-29 08:14] VITALS: BP 165/67; PULSE 72
== END 2017-11-29 08:19 | disposition home or self-care (01) ==
LOC: ED 07:12
DX: J32.9 Chronic sinusitis, unspecified (principal); J45.909 Unspecified asthma, uncomplicated; I10 Essential (primary) hypertension; E11.9 Type 2 diabetes mellitus without complications; I34.1 Nonrheumatic mitral (valve) prolapse; Z79.899 Other long term (current) drug therapy
CPT/HCPCS: 96372; 99284; J1885

== ENCOUNTER 2017-11-30 12:39 | Emergency (ER) | payer OTHER ==
--- NOTE | 2017-11-30 13:34 | ERPHSYRPT ---
- History of Present Illness Time Seen by Provider: 11/30/17 13:00 Source: patient Exam Limitations: clinical condition Patient Subjective Stated Complaint: pt here for abcess to right nostril since sat. has been seen 3 times in er for this,was also by commercial leasing agent today and they wanted a ct scan and pt does not want to wait for pre auth. from ins. pt states abecss is the same Triage Nursing Assessment: pt co pain to face, alert, resp easy, skin w/d pink, no drainage from nose, no redness or swelling to face Physician History: PATIENT HAS BEEN TREATED FOR RIGHT SINUSITIS OVER THE PAST 4 DAYS WITH ANTIBIOTICS CEFTIN, FOLLOWED BY ZITHROMAX, DENIES FEVER, CHILLS OR NASAL DRAINAGE. Timing/Duration: day(s) Severity: moderate Modifying Factors: Improves With: other (PAIN ADJACENT TO HER NOSE) Associated Symptoms: denies symptoms Allergies/Adverse Reactions: codeine Allergy (Verified 11/30/17 12:53) ezetimibe [From Vytorin] Allergy (Verified 11/30/17 12:53) metformin [From Glucophage] Allergy (Verified 11/30/17 12:53) oxycodone [From Percocet] Allergy (Verified 11/30/17 12:53) prochlorperazine [From Compazine] Allergy (Verified 11/30/17 12:53) simvastatin [From Vytorin] Allergy (Verified 11/30/17 12:53) morphine Adverse Reaction (Verified 11/30/17 12:53) Home Medications: Cetirizine HCl [Zyrtec] 10 mg PO DAILY 09/22/16 [History] Insulin Glargine,Hum.rec.anlog [Lantus] 40 unit SQ QAM 09/22/16 [History] Insulin Lispro [Humalog] 20 unit SQ AC 09/22/16 [History] Sertraline HCl 100 mg [Zoloft 100 MG] 150 mg PO DAILY 09/22/16 [History] Tizanidine HCl 4 mg [Zanaflex 4 MG] 4 mg PO TID 09/22/16 [History] Atorvastatin Calcium [Lipitor 40Mg] 40 mg PO DAILY 04/17/17 [History] Albuterol Sulfate [Proair Hfa] 8.5 gm IH UD PRN 05/20/17 [History] Naproxen Sodium [Naproxen Sodium Cr] 500 mg PO BID 05/20/17 [History] Bisoprolol Fumarate 5 mg PO DAILY 11/27/17 [History] Furosemide [Lasix] 40 mg PO BID 11/27/17 [History] Losartan Potassium 100 mg PO DAILY 11/27/17 [History] Omeprazole 20 MG [Prilosec 20 mg] 20 mg PO DAILY 11/27/17 [History] Pregabalin [Lyrica 100Mg] 100 mg PO TID 11/27/17 [History] Hx Tetanus, Diphtheria Vaccination/Date Given: Yes Hx Influenza Vaccination/Date Given: Yes Hx Pneumococcal Vaccination/Date Given: Yes Immunizations Up to Date: Yes - Review of Systems Constitutional: No Fever, No Chills Eyes: No Symptoms Ears, Nose, & Throat: Other (SINUS PAIN, NO DISCHARGE) Respiratory: No Cough, No Dyspnea Cardiac: No Chest Pain, No Edema, No Syncope Abdominal/Gastrointestinal: Constipation, No Abdominal Pain, No Nausea, No Vomiting, No Diarrhea Genitourinary Symptoms: No Symptoms, No Dysuria Musculoskeletal: No Symptoms, No Back Pain, No Neck Pain Skin: No Rash Neurological: No Dizziness, No Focal Weakness, No Sensory Changes Psychological: No Symptoms Endocrine: No Symptoms All Other Systems: Reviewed and Negative - Past Medical History Pertinent Past Medical History: Yes Neurological History: No Pertinent History Cardiac History: Congestive Heart Failure, Hypertension, Other Respiratory History: Asthma Endocrine Medical History: Diabetes Type II Musculoskeletal History: Degenerative Disk Disease, Other Other Medical History: , R KNEE MENSICUS TEAR W/ REPAIR, plantar fascia,mrsa - Past Surgical History Past Surgical History: Yes Gastrointestinal: Cholecystectomy, Hernia Repair Musculoskeletal: Orthopedic Surgery Female Surgical History: Tubal Ligation Other Surgical History: carpal tunel repair in right hand, knee surgery - Social History Smoking Status: Never smoker Exposure to second hand smoke: No Drug Use: none Patient Lives Alone: No - Female History Hx Last Menstrual Period: post Hx Now: No - Nursing Vital Signs Nursing Vital Signs: Initial Vital Signs Temperature 97.5 F 11/30/17 12:42 Pulse Rate 99 H 11/30/17 12:42 Respiratory Rate 16 11/30/17 12:42 Blood Pressure 195/97 11/30/17 12:42 O2 Sat by Pulse Oximetry 95 11/30/17 12:42 Pain Scale Pain Intensity 8 - Physical Exam General Appearance: no apparent distress, alert Eye Exam: PERRL/EOMI, eyes nml inspection Ears, Nose, Throat Exam: normal ENT inspection, TMs normal, pharynx normal, moist mucous membranes, other (TENDERNESS OVER RIGHT MAXILLARY SINUS) Neck Exam: normal inspection, non-tender, supple, full range of motion Respiratory Exam: normal breath sounds, lungs clear, No respiratory distress Cardiovascular Exam: regular rate/rhythm, normal heart sounds, normal peripheral pulses Gastrointestinal/Abdomen Exam: No tenderness, No mass Back Exam: normal inspection, normal range of motion, No CVA tenderness, No vertebral tenderness Neurologic Exam: alert, oriented x 3, cooperative, normal mood/affect, nml cerebellar function, nml station & gait, sensation nml, No motor deficits Skin Exam: normal color, warm, dry, No rash Lymphatic Exam: No adenopathy SpO2 Interpretation: normal SpO2: 95 Oxygen Delivery: Room Air - CT Exams Maxillofacial Bones CT Interpretation: Discussed w/radiologist (NEGATIVE CT FACIAL BONES, NO ACUTE FRACTURE, SUSPICIOUS BONY LESIONS, PARANASAL SINUSES AND NASAL PASSAGES ARE CLEAR.) Ordered Tests: Active Orders 24 hr Category Date Time Status FACIAL BONES WO CONTRAST [CT] Stat Exams 11/30/17 13:22 Taken CULTURE, SINUS Stat Lab 11/30/17 Uncollected - Departure Time of Disposition: 14:15 Departure Disposition: Home Clinical Impression: FACIAL PAIN Condition: Stable Critical Care Time: No Referrals: MALLORY ELLIOTT MD [Primary Care Provider] - Additional Instructions: CONTINUE ALL CURRENT MEDICATIONS FOR INFECTION AND PAIN. FOLLOWUP WITH YOUR PRIMARY CARE PROVIDER FOR FOLLOWUP OF THE NASAL CULTURE AND REVIEW OF FACIAL BONES CT SCAN.
--- NOTE | 2017-11-30 14:04 | XRAY ---
Indication: Right facial pain and swelling 1 week. No known injury. Multiple contiguous axial images obtained through the facial bones. Sagittal and coronal reformatted images obtained. Comparison: None There are few bilateral dental amalgams producing beam artifact. No acute fracture, suspicious bony lesions, or radiopaque foreign body. Orbits including roof, mendoza, and floors intact. Paranasal sinuses and nasal passages are clear. Mild nasal septal deviation to the left. Visualized noncontrasted soft tissues including base of the brain unremarkable. Impression: Negative CT facial bones. CT DI 59.47
[2017-11-30 14:30] VITALS: BP 138/92; PULSE 91; O2SAT 96
== END 2017-11-30 14:29 | disposition home or self-care (01) ==
LOC: ED 12:39
DX: R51 Headache (principal); E11.9 Type 2 diabetes mellitus without complications; Z79.899 Other long term (current) drug therapy; Z79.4 Long term (current) use of insulin
CPT/HCPCS: 70486; 87070; 99284

== ENCOUNTER 2019-04-21 16:19 | Emergency (ER) | payer OTHER ==
[2019-04-21] MEDS ORDERED: Sodium Chloride 0.9% 1000 ML 1,000 ML ONE (17:08)
[2019-04-21 17:11] LABS: BASOPHIL % 0.4 % (0.0-0.4); Basophil (Absolute #) 0.03 (0-0.4); Eosinophil % 3.6 % (0.00-5.0); Granulocyte Absolute (ANC) 5.75 (1.4-6.9); Granulocytes % 69.5 % (36.0-66.0); Hematocrit 39.8 % (35-47); Hemoglobin 13.1 gm/dl (12.0-16.0); Lymphocyte (Absolute #) 1.48 (1.0-4.6); Lymphocytes % 17.9 % (24.0-44.0); Mean Cell Volume 87.7 fl (78-100); Mean Corpuscular Hemoglobin 28.9 pg (26-32); Mean Corpuscular Hgb Concent. 32.9 g/dl (32-36); Monocyte (Absolute #) 0.71 (0.0-1.3); Monocytes % 8.6 % (0.0-12.0); Platelet Count 270 K/mm3 (150-450); Red Blood Count 4.54 M/mm3 (4.1-5.4); Red Cell Distribution Width 13.4 % (11.5-14.0); White Blood Count 8.3 K/mm3 (4.0-10.5)
[2019-04-21 17:12] LABS: Lactic Acid 2.3 (0.4-2.0)
[2019-04-21] MEDS: Sodium Chloride 0.9% 1000 ML 1,000 ML IV STA (17:13)
[2019-04-21 17:40] LABS: ALBUMIN 3.8 g/dL (3.5-5.0); ALKALINE PHOSPHATASE 81 U/L (38-126); BLOOD UREA NITROGEN 17 mg/dL (7-17); CHLORIDE 101 mmol/L (98-107); Calcium 9.7 mg/dL (8.4-10.2); Carbon Dioxide 23 mmol/L (22-30); Creatinine 1 0.43 mg/dL (0.52-1.04); Glucose 359 mg/dL (74-106); Potassium 4.3 mmol/L (3.5-5.1); SGOT/AST 29 U/L (14-36); SGPT/ALT 26 U/L (0-35); SODIUM 137 mmol/L (137-145); Total Protein 7.2 g/dL (6.3-8.2)
[2019-04-21 17:42] LABS: ANION GAP 17.3 MEQ/L (5-15)
--- NOTE | 2019-04-21 18:11 | ERPHSYRPT ---
- History of Present Illness Time Seen by Provider: 04/21/19 18:10 Source: patient Exam Limitations: no limitations Patient Subjective Stated Complaint: states hasn't felt well for two days. aching all over, chilling. states neck and back hurt and left ear hurts. Triage Nursing Assessment: ambulated to room per self. skin w/d, color normal, resp easy. denies cough. Physician History: states hasn't felt well for two days. aching all over, chilling. states neck and back hurt and left ear hurts. Timing/Duration: day(s) (two days) Fever Severity: moderate Fever Therapy [employer]GER: Ibuprofen, Acetaminophen Associated Symptoms: muscle aches, stiff neck, weakness International travel in last 2 weeks: No Allergies/Adverse Reactions: codeine Allergy (Verified 04/21/19 16:47) ezetimibe [From Vytorin] Allergy (Verified 04/21/19 16:47) metformin [From Glucophage] Allergy (Verified 04/21/19 16:47) oxycodone [From Percocet] Allergy (Verified 04/21/19 16:47) prochlorperazine [From Compazine] Allergy (Verified 04/21/19 16:47) simvastatin [From Vytorin] Allergy (Verified 04/21/19 16:47) morphine Adverse Reaction (Verified 04/21/19 16:47) Home Medications: Insulin Lispro [Humalog] 10 units SQ AC 09/22/16 [History] Sertraline HCl 100 mg [Zoloft 100 MG] 150 mg PO DAILY 09/22/16 [History] Tizanidine HCl 4 mg [Zanaflex 4 MG] 4 mg PO TID 09/22/16 [History] Albuterol Sulfate [Proair Hfa] 8.5 gm IH UD PRN 05/20/17 [History] Naproxen Sodium [Naproxen Sodium Cr] 500 mg PO BID 05/20/17 [History] Furosemide [Lasix] 40 mg PO BID 11/27/17 [History] Losartan Potassium 100 mg PO DAILY 11/27/17 [History] Omeprazole 20 MG [Prilosec 20 mg] 20 mg PO DAILY 11/27/17 [History] Pregabalin [Lyrica 100Mg] 100 mg PO TID 11/27/17 [History] Aspirin [Marathon Aspirin EC] 81 mg PO DAILY 04/21/19 [History] Atorvastatin Calcium [Lipitor] 40 mg PO DAILY 04/21/19 [History] Bisoprolol Fumarate 10 mg PO DAILY 04/21/19 [History] Insulin Glargine/Lixisenatide [[place] 100 Unit-33 Mcg/ml Pen] 15 units SQ DAILY 04/21/19 [History] Levothyroxine Sodium 75 Mcg [Synthroid 75 Mcg] 75 mcg PO DAILY 04/21/19 [ History] Metformin HCl 500 mg [Glucophage 500 MG] 500 mg PO BIDWM 04/21/19 [History ] [place]-3/Dha/Epa/Fish Oil [Fish Oil 1,000 mg Softgel] 1,000 mg PO BID 04/21/19 [ History] Pregabalin [Lyrica 100Mg] 100 mg PO TID 04/21/19 [History] Hx Tetanus, Diphtheria Vaccination/Date Given: Yes Hx Influenza Vaccination/Date Given: Yes Hx Pneumococcal Vaccination/Date Given: Yes - Review of Systems Constitutional: Fever, Chills, Fatigue, Malaise Eyes: No Symptoms Ears, Nose, & Throat: Ear Pain Respiratory: No Symptoms Cardiac: No Symptoms Abdominal/Gastrointestinal: No Symptoms Genitourinary Symptoms: No Symptoms Musculoskeletal: No Symptoms - Past Medical History Pertinent Past Medical History: Yes Neurological History: No Pertinent History ENT History: No Pertinent History Cardiac History: Congestive Heart Failure, Hypertension, Other Respiratory History: Asthma Endocrine Medical History: Diabetes Type II Musculoskeletal History: Degenerative Disk Disease, Other GI Medical History: GERD History: No Pertinent History Psycho-Social History: Depression Female Reproductive Disorders: Other Other Medical History: , R KNEE MENSICUS TEAR W/ REPAIR, plantar fascia,mrsa, chronic neck and back pain, vertigo - Past Surgical History Past Surgical History: Yes Neuro Surgical History: No Pertinent History Cardiac: Cardiac Catheterization Respiratory: No Pertinent History Gastrointestinal: Cholecystectomy, Hernia Repair Genitourinary: No Pertinent History Musculoskeletal: Orthopedic Surgery Female Surgical History: Tubal Ligation Other Surgical History: carpal tunel repair in right hand, knee surgery , lymph node removed, I&d lesion on head - Social History Smoking Status: Never smoker Exposure to second hand smoke: No Drug Use: none Patient Lives Alone: No - Female History Hx Now: No - Nursing Vital Signs Nursing Vital Signs: Initial Vital Signs Temperature 98.3 F 04/21/19 16:41 Pulse Rate 94 H 04/21/19 16:41 Respiratory Rate 16 04/21/19 16:41 Blood Pressure 164/99 04/21/19 16:41 O2 Sat by Pulse Oximetry 97 04/21/19 16:41 Pain Scale Pain Intensity 7 - Physical Exam General Appearance: no apparent distress, alert Eye Exam: PERRL/EOMI ENT Exam: normal ENT inspection, TM dull, TM red, No pharyngeal erythema, No tonsillar exudate Neck Exam: supple, full range of motion, No meningismus Respiratory Exam: normal breath sounds, lungs clear, no respiratory distress Cardiovascular/Chest Exam: normal heart sounds, regular rate/rhythm, No murmur, No edema Gastrointestinal/Abdominal Exam: soft, non tender, no distention Extremity Exam: non-tender, normal range of motion, normal inspection, normal capillary refill Neurologic Exam: alert, oriented x 3, cooperative, watch parts inspector II-XII nml as tested, normal mood/affect, sensation nml, No motor deficits Skin Exam: normal color, warm, dry, No rash SpO2: 97 - Course Nursing assessment & vital signs reviewed: Yes Ordered Tests: Active Orders 24 hr Category Date Time Status CBC W DIFF Stat Lab 04/21/19 17:11 Completed CMP Stat Lab 04/21/19 17:11 Completed Lactic Acid Stat Lab 04/21/19 16:49 Results UA W/RFX UR CULTURE Stat Lab 04/21/19 17:19 Completed Medication Summary Generic Name Dose Route Start Last Admin Trade Name Freq PRN Reason Stop Dose Admin Ceftriaxone Sodium/Dextrose 1 g in 50 mls @ 100 mls/hr 04/21/19 18:18 18:26 Rocephin 1 Gm-D5w 50 Ml Bag IV 04/21/19 18:47 100 ml/hr STAT STA 100 mls/hr Administration Discontinued Medications Generic Name Dose Route Start Last Admin Trade Name Freq PRN Reason Stop Dose Admin Sodium Chloride 1,000 mls @ 999 mls/hr 04/21/19 16:49 04/21/19 18:17 Sodium Chloride 0.9% 1000 Ml IV 04/21/19 17:49 Infused .Q1H1M STA Infusion Sodium Chloride Confirm 04/21/19 17:08 Sodium Chloride 0.9% 1000 Ml Administered 04/21/19 17:09 Dose 1,000 mls @ ud .ROUTE .STK-MED ONE Ceftriaxone Sodium/Dextrose Confirm 04/21/19 18:23 Rocephin 1 Gm-D5w 50 Ml Bag Administered 04/21/19 18:24 Dose 1 g in 50 mls @ ud IV .STK-MED ONE Ketorolac Tromethamine 30 mg 04/21/19 18:18 04/21/19 18:26 Toradol 30 Mg Injection IV 04/21/19 18:19 30 mg STAT ONE Administration Ketorolac Tromethamine Confirm 04/21/19 18:23 Toradol 30 Mg Injection Administered 04/21/19 18:24 Dose 30 mg .ROUTE .STK-MED ONE Lab/Rad Data: Laboratory Result Diagrams 04/21/19 17:11 04/21/19 17:11 Laboratory Results 04/21/19 04/21/19 04/21/19 Range/Units 17:19 17:11 17:11 WBC 8.3 (4.0-10.5) K/mm3 RBC 4.54 (4.1-5.4) M/mm3 Hgb 13.1 (12.0-16.0) gm/dl Hct 39.8 (35-47) % MCV 87.7 (78-100) fl MCH 28.9 (26-32) pg MCHC 32.9 (32-36) g/dl RDW 13.4 (11.5-14.0) % Plt Count 270 (150-450) K/mm3 MPV 11.0 H (6-9.5) fl Gran % 69.5 H (36.0-66.0) % Eos # (Auto) 0.30 (0-0.5) Absolute Lymphs (auto) 1.48 (1.0-4.6) Absolute Monos (auto) 0.71 (0.0-1.3) Lymphocytes % 17.9 L (24.0-44.0) % Monocytes % 8.6 (0.0-12.0) % Eosinophils % 3.6 (0.00-5.0) % Basophils % 0.4 (0.0-0.4) % Absolute Granulocytes 5.75 (1.4-6.9) Basophils # 0.03 (0-0.4) Sodium 137 (137-145) mmol/L Potassium 4.3 (3.5-5.1) mmol/L Chloride 101 (98-107) mmol/L Carbon Dioxide 23 (22-30) mmol/L Anion Gap 17.3 H (5-15) MEQ/L BUN 17 (7-17) mg/dL Creatinine 0.43 L (0.52-1.04) mg/dL Estimated GFR > 60.0 ML/MIN Glucose 359 H (74-106) mg/dL Lactic Acid (0.4-2.0) Calcium 9.7 (8.4-10.2) mg/dL Total Bilirubin 0.40 (0.2-1.3) mg/dL AST 29 (14-36) U/L ALT 26 (0-35) U/L Alkaline Phosphatase 81 (38-126) U/L Serum Total Protein 7.2 (6.3-8.2) g/dL Albumin 3.8 (3.5-5.0) g/dL Urine Color YELLOW (YELLOW) Urine Appearance SLIGHTLY CLOUDY (CLEAR) Urine pH 6.0 (5-6) Ur Specific [place] 1.025 (1.005-1.025) Urine Protein NEGATIVE (Negative) Urine Ketones NEGATIVE (NEGATIVE) Urine Blood NEGATIVE (0-5) Sameer/ul Urine Nitrite NEGATIVE (NEGATIVE) Urine Bilirubin NEGATIVE (NEGATIVE) Urine Urobilinogen NEGATIVE (0-1) mg/dL Ur Leukocyte Esterase SMALL (NEGATIVE) Urine WBC (Auto) 3-5 (0-5) /HPF Urine RBC (Auto) NONE (0-2) /HPF U Epithel Cells (Auto) FEW (FEW) /HPF Urine Bacteria (Auto) NONE (NEGATIVE) /HPF Urine Mucus (Auto) SLIGHT (NEGATIVE) /HPF Urine Culture Reflexed NO (NO) Urine Glucose >=500 (NEGATIVE) mg/dL 04/21/19 Range/Units 16:49 WBC (4.0-10.5) K/mm3 RBC (4.1-5.4) M/mm3 Hgb (12.0-16.0) gm/dl Hct (35-47) % MCV (78-100) fl MCH (26-32) pg MCHC (32-36) g/dl RDW (11.5-14.0) % Plt Count (150-450) K/mm3 MPV (6-9.5) fl Gran % (36.0-66.0) % Eos # (Auto) (0-0.5) Absolute Lymphs (auto) (1.0-4.6) Absolute Monos (auto) (0.0-1.3) Lymphocytes % (24.0-44.0) % Monocytes % (0.0-12.0) % Eosinophils % (0.00-5.0) % Basophils % (0.0-0.4) % Absolute Granulocytes (1.4-6.9) Basophils # (0-0.4) Sodium (137-145) mmol/L Potassium (3.5-5.1) mmol/L Chloride (98-107) mmol/L Carbon Dioxide (22-30) mmol/L Anion Gap (5-15) MEQ/L BUN (7-17) mg/dL Creatinine (0.52-1.04) mg/dL Estimated GFR ML/MIN Glucose (74-106) mg/dL Lactic Acid 2.3 H (0.4-2.0) Calcium (8.4-10.2) mg/dL Total Bilirubin (0.2-1.3) mg/dL AST (14-36) U/L ALT (0-35) U/L Alkaline Phosphatase (38-126) U/L Serum Total Protein (6.3-8.2) g/dL Albumin (3.5-5.0) g/dL Urine Color (YELLOW) Urine Appearance (CLEAR) Urine pH (5-6) Ur Specific [place] (1.005-1.025) Urine Protein (Negative) Urine Ketones (NEGATIVE) Urine Blood (0-5) Sameer/ul Urine Nitrite (NEGATIVE) Urine Bilirubin (NEGATIVE) Urine Urobilinogen (0-1) mg/dL Ur Leukocyte Esterase (NEGATIVE) Urine WBC (Auto) (0-5) /HPF Urine RBC (Auto) (0-2) /HPF U Epithel Cells (Auto) (FEW) /HPF Urine Bacteria (Auto) (NEGATIVE) /HPF Urine Mucus (Auto) (NEGATIVE) /HPF Urine Culture Reflexed (NO) Urine Glucose (NEGATIVE) mg/dL - Progress Progress: improved, pain not gone completely Counseled pt/family regarding: lab results, diagnosis, need for follow-up - Departure Departure Disposition: Home Clinical Impression: Otitis media due to Streptococcus pneumoniae UTI (urinary tract infection) Qualifiers: Urinary tract infection type: site unspecified Hematuria presence: without hematuria Qualified Code(s): N39.0 - Urinary tract infection, site not specified Condition: Stable Critical Care Time: No Referrals: MALLORY ELLIOTT MD [Primary Care Provider] - Instructions: Urinary Tract Infection, Adult (DC), Ear Infections (Otitis Media ) (DC) Additional Instructions: Discharge/Care Plan LACI BROWN was seen on 04/21/19 in the Emergency Room. The patient was counseled regarding Diagnosis,Lab results, Imaging studies, need for follow up and when to return to the Emergency Room. Prescriptions given: Discharge Note I have spoken with the patient and/or caregivers. I have explained the patient' s condition, diagnosis and treatment plan based on the information available to me at this time. I have answered the patient's and/or caregiver's questions and addressed any concerns. The patient and/or caregivers have as good understanding of the patient's diagnosis, condition and treatment plan as can be expected at this point. The vital signs have been stable. The patient's condition is stable and appropriate for discharge from the emergency department. The patient will pursue further outpatient evaluation with the primary care physician or other designated or consulting physician as outlined in the discharge instructions. The patient and/or caregivers are agreeable to this plan of care and follow-up instructions have been explained in detail. The patient and/or caregivers have received these instruction. The patient/and or caregivers are aware that any significant change in condition or worsening of symptoms should prompt an immediate return to this or the closest emergency department or call 911. Prescriptions: Ciprofloxacin [Cipro 500 MG] 500 mg PO BIDAC #15 tablet
[2019-04-21 18:17] VITALS: BP 156/87; PULSE 83
[2019-04-21 18:20] VITALS: O2SAT 97
[2019-04-21] MEDS ORDERED: TORAdol 30 mg Injection ONE (18:23)
[2019-04-21] MEDS ORDERED: ROCEPHIN 1 Gm-D5w 50 ml Bag** 1 G/50 ML IVPB IV ONE (18:23)
[2019-04-21 18:24] LABS: Appearance SLIGHTLY CLOUDY (CLEAR); Bilirubin NEGATIVE (NEGATIVE); Blood NEGATIVE Ery/ul (0-5); Epithelial Cells FEW /HPF (FEW); Glucose >=500 mg/dL (NEGATIVE); Ketones NEGATIVE (NEGATIVE); Leukocyte Esterase SMALL (NEGATIVE); Mucus SLIGHT /HPF (NEGATIVE); Nitrite NEGATIVE (NEGATIVE); Protein,Urine Dip NEGATIVE (Negative); Specific Gravity 1.025 (1.005-1.025); Urobilinogen NEGATIVE mg/dL (0-1)
[2019-04-21] MEDS: ROCEPHIN 1 Gm-D5w 50 ml Bag** 1 G/50 ML IVPB IV STA (18:26)
[2019-04-21] MEDS: TORAdol 30 mg Injection IV ONE (18:26)
== END 2019-04-21 18:58 | disposition home or self-care (01) ==
LOC: ED 16:19
DX: H66.90 Otitis media, unspecified, unspecified ear (principal); N39.0 Urinary tract infection, site not specified; E11.9 Type 2 diabetes mellitus without complications; Z79.4 Long term (current) use of insulin; F41.9 Anxiety disorder, unspecified; K21.9 Gastro-esophageal reflux disease without esophagitis; Z79.899 Other long term (current) drug therapy
CPT/HCPCS: 36000; 36415; 80053; 81001; 83605; 85025; 96360; 96365; 96374; 99284; J0696; J1885

== ENCOUNTER 2019-05-20 13:08 | Emergency (ER) | payer OTHER ==
[2019-05-20] MEDS ORDERED: BABY ASPIRIN 81 MG CHEW PO ONE (13:39)
--- NOTE | 2019-05-20 13:46 | ERPHSYRPT ---
- History of Present Illness Time Seen by Provider: 05/20/19 13:35 Historian: patient Exam Limitations: no limitations Patient Subjective Stated Complaint: chest pain off and on for a few days Triage Nursing Assessment: patient been having chest pain off and on for a few days , pt able to ambulate by self, giat is steady, skin edema noted bilateral upper and lower extremity, pulse sequal bialteral radius. Physician History: 54-year-old white female with history of diabetes type 2, asthma, congestive heart failure, high blood pressure, GERD, degenerative disc disease, depression Patient arrives with complaints of intermittent chest pain anterior sternal region associated with shortness of breath off and on for 2-3 days she states that she feels like her blood pressure than elevated felt like she was seeing some spots yesterday. She has no nausea no vomiting. Past medical history includes diabetes type 2, asthma, congestive heart failure , high blood pressure, GERD, degenerative disc disease, depression, right knee meniscus repair, plantar fasciitis, MRSA, chronic neck and back pain, vertigo. Past surgical history includes cardiac catheter, cholecystectomy, hernia repair , tubal ligation, orthopedic surgery, carpal tunnel on the right hand, knee surgery, lymph node removed, I&D lesion on her head. Social history denies tobacco alcohol or illicit drug use Timing/Duration: day(s) Activities at Onset: none (2-3 days) Quality: sharpness Location: substernal Chest Pain Radiation: no radiation Severity of Pain-Max: moderate Severity of Pain-Current: mild Modifying Factors: Improves With: nothing Associated Symptoms: shortness of breath, dizziness, No nausea, No vomiting, No palpitations, No heartburn, No abdominal pain, No cough, No hurts to breathe, No diaphoresis, No chills, No fever, No fatigue, No weakness, No swelling/lump in chest, No syncope, No rash, No headache, No edema, No back pain Prior Chest Pain/Cardiac Workup: cardiac cath Nitro Today/Relief: no nitro taken today Aspirin Treatment Today: 81 mg x 1 (at home), 81 mg x 3 (in er) Allergies/Adverse Reactions: codeine Allergy (Verified 05/20/19 13:10) ezetimibe [From Vytorin] Allergy (Verified 05/20/19 13:10) metformin [From Glucophage] Allergy (Verified 05/20/19 13:10) oxycodone [From Percocet] Allergy (Verified 05/20/19 13:10) prochlorperazine [From Compazine] Allergy (Verified 05/20/19 13:10) simvastatin [From Vytorin] Allergy (Verified 05/20/19 13:10) morphine Adverse Reaction (Verified 05/20/19 13:10) Home Medications: Insulin Lispro [Humalog] 10 units SQ AC 09/22/16 [History] Sertraline HCl 100 mg [Zoloft 100 MG] 150 mg PO DAILY 09/22/16 [History] Tizanidine HCl 4 mg [Zanaflex 4 MG] 4 mg PO TID 09/22/16 [History] Naproxen Sodium [Naproxen Sodium Cr] 500 mg PO BID 05/20/17 [History] Furosemide [Lasix] 40 mg PO BID 11/27/17 [History] Losartan Potassium 100 mg PO DAILY 11/27/17 [History] Aspirin [[place] Aspirin EC] 81 mg PO DAILY 04/21/19 [History] Atorvastatin Calcium [Lipitor] 40 mg PO DAILY 04/21/19 [History] Bisoprolol Fumarate 10 mg PO DAILY 04/21/19 [History] Insulin Glargine/Lixisenatide [[place] 100 Unit-33 Mcg/ml Pen] 15 units SQ DAILY 04/21/19 [History] Levothyroxine Sodium 75 Mcg [Synthroid 75 Mcg] 75 mcg PO DAILY 04/21/19 [ History] Metformin HCl 500 mg [Glucophage 500 MG] 500 mg PO BIDWM 04/21/19 [History ] [place]-3/Dha/Epa/Fish Oil [Fish Oil 1,000 mg Softgel] 1,000 mg PO BID 04/21/19 [ History] Pregabalin [Lyrica 100Mg] 100 mg PO TID 04/21/19 [History] Hx Tetanus, Diphtheria Vaccination/Date Given: Yes Hx Influenza Vaccination/Date Given: Yes Hx Pneumococcal Vaccination/Date Given: Yes Immunizations Up to Date: Yes - Review of Systems Constitutional: No Fever, No Chills Eyes: Other (seeing spots yesterday), No Discharge, No Eye Pain, No Eye Redness , No Itchy, No Photophobia, No Tearing, No Vision Changes, No Double Vision, No Foreign Body Sensation Ears, Nose, & Throat: No Symptoms Respiratory: Dyspnea, No Cough Cardiac: Chest Pain, No Edema, No Palpitations, No Syncope, No Orthopnea, No PND Abdominal/Gastrointestinal: No Abdominal Pain, No Nausea, No Vomiting, No Diarrhea Genitourinary Symptoms: No Dysuria Musculoskeletal: No Back Pain, No Neck Pain Skin: No Rash Neurological: No Dizziness, No Focal Weakness, No Sensory Changes Psychological: No Symptoms Endocrine: No Symptoms All Other Systems: Reviewed and Negative - Past Medical History Pertinent Past Medical History: Yes Neurological History: No Pertinent History ENT History: No Pertinent History Cardiac History: Congestive Heart Failure, Hypertension, Other Respiratory History: Asthma Endocrine Medical History: Diabetes Type II Musculoskeletal History: Degenerative Disk Disease, Other GI Medical History: GERD History: No Pertinent History Psycho-Social History: Depression Female Reproductive Disorders: Other Other Medical History: , R KNEE MENSICUS TEAR W/ REPAIR, plantar fascia,mrsa, chronic neck and back pain, vertigo - Past Surgical History Past Surgical History: Yes Neuro Surgical History: No Pertinent History Cardiac: Cardiac Catheterization Respiratory: No Pertinent History Gastrointestinal: Cholecystectomy, Hernia Repair Genitourinary: No Pertinent History Musculoskeletal: Orthopedic Surgery Female Surgical History: Tubal Ligation Other Surgical History: carpal tunel repair in right hand, knee surgery , lymph node removed, I&d lesion on head - Social History Smoking Status: Never smoker Exposure to second hand smoke: No Drug Use: none Patient Lives Alone: No - Female History Hx Now: No - Nursing Vital Signs Nursing Vital Signs: Initial Vital Signs Temperature 96.8 F 05/20/19 13:08 Pulse Rate 74 05/20/19 13:08 Respiratory Rate 18 05/20/19 13:08 Pain Scale Pain Intensity 4 - Physical Exam General Appearance: no apparent distress, obese Eye Exam: PERRL/EOMI, eyes nml inspection Ears, Nose, Throat Exam: normal ENT inspection, moist mucous membranes Neck Exam: normal inspection, non-tender, supple, full range of motion Respiratory Exam: normal breath sounds, lungs clear, No respiratory distress Cardiovascular Exam: regular rate/rhythm, normal heart sounds, capillary refill <2 sec Gastrointestinal/Abdomen Exam: soft, No tenderness, No mass Back Exam: normal inspection, No CVA tenderness, No vertebral tenderness Extremity Exam: normal inspection, normal range of motion Neurologic Exam: alert, oriented x 3, cooperative, 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, normal mood/affect, sensation nml, No motor deficits Skin Exam: normal color, warm, dry SpO2 Interpretation: normal (98%) - Course Nursing assessment & vital signs reviewed: Yes EKG Interpreted by Me: RATE (70 bpm), Sinus Rhythm, NORMAL AXIS, Other (EKG: Sinus rhythm with PVC 70 beats per minute, normal axis, no acute ST or T wave changes noted, compared to May 26, 2017) - Radiology Exams Chest X-ray Interpretation: Discussed w/ radiologist (Chest x-ray: Stable nonacute chest with chronic features.) Ordered Tests: Active Orders 24 hr Category Date Time Status Accucheck STAT Care 05/20/19 14:36 Active 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 STAT Care 05/20/19 13:39 Active EKG-ER Only STAT Care 05/20/19 13:39 Active IV Insertion STAT Care 05/20/19 13:39 Active Pulse Oximetry (ED) STAT Care 05/20/19 13:39 Active 1800 Calorie ADA Diet 05/20/19 Dinner Active CHEST 1 VIEW (PORTABLE) Stat Exams 05/20/19 13:39 Completed AMYLASE Stat Lab 05/20/19 13:25 Completed CBC W DIFF Stat Lab 05/20/19 13:25 Completed CMP Stat Lab 05/20/19 13:25 Completed D-DIMER QUANTITATION Stat Lab 05/20/19 13:25 Completed Glucose,Critical Care Urgent Lab 05/20/19 16:38 Completed LIPASE Stat Lab 05/20/19 13:25 Completed NT PRO BNP Stat Lab 05/20/19 13:25 Completed TROPONIN Q3H Lab 05/20/19 13:25 Completed TROPONIN Q3H Lab 05/20/19 16:45 Completed TROPONIN Q3H Lab 05/20/19 19:45 Ordered TROPONIN Q3H Lab 05/20/19 22:45 Ordered TROPONIN Q3H Lab 05/21/19 01:45 Ordered Medication Summary Discontinued Medications Generic Name Dose Route Start Last Admin Trade Name Freq PRN Reason Stop Dose Admin Aspirin 243 mg 05/20/19 13:39 05/20/19 13:52 Baby Aspirin 81 Mg Chew PO 05/20/19 13:40 243 mg STAT ONE Administration Aspirin Confirm 05/20/19 13:53 Baby Aspirin 81 Mg Chew Administered 05/20/19 13:54 Dose 243 mg .ROUTE .STK-MED ONE Lab/Rad Data: Laboratory Result Diagrams 05/20/19 13:25 05/20/19 13:25 Laboratory Results 05/20/19 05/20/19 05/20/19 Range/Units 16:45 16:38 13:25 WBC (4.0-10.5) K/mm3 RBC (4.1-5.4) M/mm3 Hgb (12.0-16.0) gm/dl Hct (35-47) % MCV (78-100) fl MCH (26-32) pg MCHC (32-36) g/dl RDW (11.5-14.0) % Plt Count (150-450) K/mm3 MPV (6-9.5) fl Gran % (36.0-66.0) % Eos # (Auto) (0-0.5) Absolute Lymphs (auto) (1.0-4.6) Absolute Monos (auto) (0.0-1.3) Lymphocytes % (24.0-44.0) % Monocytes % (0.0-12.0) % Eosinophils % (0.00-5.0) % Basophils % (0.0-0.4) % Absolute Granulocytes (1.4-6.9) Basophils # (0-0.4) D-Dimer (215-500) ng/mL Sodium (137-145) mmol/L Potassium (3.5-5.1) mmol/L Chloride (98-107) mmol/L Carbon Dioxide (22-30) mmol/L Anion Gap (5-15) MEQ/L BUN (7-17) mg/dL Creatinine (0.52-1.04) mg/dL Estimated GFR ML/MIN Glucose 171 H (74-106) mg/dL Calcium (8.4-10.2) mg/dL Total Bilirubin (0.2-1.3) mg/dL AST (14-36) U/L ALT (0-35) U/L Alkaline Phosphatase (38-126) U/L Troponin I < 0.012 < 0.012 (0.000-0.034) ng/mL NT-Pro-B Natriuret Pep (0-900) pg/mL Serum Total Protein (6.3-8.2) g/dL Albumin (3.5-5.0) g/dL Amylase (30-110) U/L Lipase (23-300) U/L 05/20/19 05/20/19 05/20/19 Range/Units 13:25 13:25 13:25 WBC 8.5 (4.0-10.5) K/mm3 RBC 4.20 (4.1-5.4) M/mm3 Hgb 12.2 (12.0-16.0) gm/dl Hct 37.7 (35-47) % MCV 89.8 (78-100) fl MCH 29.0 (26-32) pg MCHC 32.4 (32-36) g/dl RDW 13.9 (11.5-14.0) % Plt Count 268 (150-450) K/mm3 MPV 10.6 H (6-9.5) fl Gran % 65.6 (36.0-66.0) % Eos # (Auto) 0.40 (0-0.5) Absolute Lymphs (auto) 1.78 (1.0-4.6) Absolute Monos (auto) 0.72 (0.0-1.3) Lymphocytes % 21.0 L (24.0-44.0) % Monocytes % 8.5 (0.0-12.0) % Eosinophils % 4.7 (0.00-5.0) % Basophils % 0.2 (0.0-0.4) % Absolute Granulocytes 5.54 (1.4-6.9) Basophils # 0.02 (0-0.4) D-Dimer 360 (215-500) ng/mL Sodium 139 (137-145) mmol/L Potassium 3.9 (3.5-5.1) mmol/L Chloride 102 (98-107) mmol/L Carbon Dioxide 29 (22-30) mmol/L Anion Gap 12.4 (5-15) MEQ/L BUN 17 (7-17) mg/dL Creatinine 0.46 L (0.52-1.04) mg/dL Estimated GFR > 60.0 ML/MIN Glucose 120 H (74-106) mg/dL Calcium 10.0 (8.4-10.2) mg/dL Total Bilirubin 0.50 (0.2-1.3) mg/dL AST 29 (14-36) U/L ALT 26 (0-35) U/L Alkaline Phosphatase 77 (38-126) U/L Troponin I (0.000-0.034) ng/mL NT-Pro-B Natriuret Pep 141 (0-900) pg/mL Serum Total Protein 7.8 (6.3-8.2) g/dL Albumin 4.2 (3.5-5.0) g/dL Amylase 72 (30-110) U/L Lipase 105 (23-300) U/L - Progress Progress: improved Air Movement: fair Progress Note: 05/20/19 17:27 Patient feeling better Patient's troponin is normal x2 chemistry essentially normal CBC essentially normal chest x-ray stable nonacute chest with chronic features patient is EKG sinus rhythm with PVCs 70 beats per minute no acute ST or T wave changes are noted Patient states he feels better after receiving aspirin she did have an episode of where she felt like her blood sugars were low she was noted to have Accu- Chek of 67 she was given orange juice and a meal . Blood glucose 171 afterword Will go ahead and discharge patient diagnosis chest pain. - Departure Departure Disposition: Home Clinical Impression: Chest pain Qualifiers: Chest pain type: unspecified Qualified Code(s): R07.9 - Chest pain, unspecified Condition: Fair Critical Care Time: No Referrals: MALLORY ELLIOTT MD [Primary Care Provider] - Additional Instructions: Return home rest. Followup with your family . Return for acute distress or symptoms or for any problems.
[2019-05-20 13:52] LABS: BASOPHIL % 0.2 % (0.0-0.4); Basophil (Absolute #) 0.02 (0-0.4); Eosinophil % 4.7 % (0.00-5.0); Granulocyte Absolute (ANC) 5.54 (1.4-6.9); Granulocytes % 65.6 % (36.0-66.0); Hematocrit 37.7 % (35-47); Hemoglobin 12.2 gm/dl (12.0-16.0); Lymphocyte (Absolute #) 1.78 (1.0-4.6); Mean Cell Volume 89.8 fl (78-100); Mean Corpuscular Hgb Concent. 32.4 g/dl (32-36); Mean Platelet Volume 10.6 fl (6-9.5); Monocytes % 8.5 % (0.0-12.0); Platelet Count 268 K/mm3 (150-450); Red Cell Distribution Width 13.9 % (11.5-14.0); White Blood Count 8.5 K/mm3 (4.0-10.5)
[2019-05-20] MEDS ORDERED: BABY ASPIRIN 81 MG CHEW ONE (13:53)
[2019-05-20 14:15] LABS: ALBUMIN 4.2 g/dL (3.5-5.0); ALKALINE PHOSPHATASE 77 U/L (38-126); AMYLASE 72 U/L (30-110); ANION GAP 12.4 MEQ/L (5-15); BLOOD UREA NITROGEN 17 mg/dL (7-17); CHLORIDE 102 mmol/L (98-107); Carbon Dioxide 29 mmol/L (22-30); Creatinine 1 0.46 mg/dL (0.52-1.04); Glucose 120 mg/dL (74-106); LIPASE 105 U/L (23-300); NT PRO BNP 141 pg/mL (0-900); Potassium 3.9 mmol/L (3.5-5.1); SGOT/AST 29 U/L (14-36); SGPT/ALT 26 U/L (0-35); SODIUM 139 mmol/L (137-145); Total Protein 7.8 g/dL (6.3-8.2)
--- NOTE | 2019-05-20 14:27 | XRAY ---
Indication: Chest pain. Cough. Comparison: October 31, 2018. Portable chest remains clear. Heart is not enlarged. Bony thorax intact again with minimal degenerative changes and minimal scoliosis. No new/acute findings. Impression: Stable nonacute chest with chronic features.
[2019-05-20 17:01] VITALS: PULSE 75; O2SAT 94
[2019-05-20 17:36] VITALS: BP 122/93
== END 2019-05-20 17:39 | disposition home or self-care (01) ==
LOC: ED 13:08
DX: R07.9 Chest pain, unspecified (principal); I10 Essential (primary) hypertension; I25.10 Atherosclerotic heart disease of native coronary artery without angina pectoris; E11.9 Type 2 diabetes mellitus without complications; I50.9 Heart failure, unspecified; J45.909 Unspecified asthma, uncomplicated
CPT/HCPCS: 36000; 36415; 71045; 80053; 82150; 82947; 82962; 83690; 83880; 84484; 85025; 85379; 93005; 93041; 99284; A9270-GY

== ENCOUNTER 2019-08-26 22:16 | Emergency (ER) | payer MEDICAID ==
[2019-08-26] MEDS ORDERED: Decadron 4 MG INJ IM ONE (22:53)
--- NOTE | 2019-08-26 22:53 | ERPHSYRPT ---
- History of Present Illness Time Seen by Provider: 08/26/19 22:44 Source: patient Exam Limitations: no limitations Patient Subjective Stated Complaint: Neck pain Triage Nursing Assessment: Patient ambulated back to ED and transferred self to bed. Patient A+O X 3. Patient's skin pink, warm and dry. Patient complains of neck pain from left side of neck to back of neck constant sharp, throbbing pain. Patient states she has had this pain for one week. Patient denies injury to neck. Patient states she had an X-ray of neck done today at [facility] with no results given. Physician History: Neck pain X 1 week; had XRays today - does not know results. Has some bumps on back of head - worried if it could be recurrrnce of MRSA - pain with turning head or inclining head to either right or left. Has had exercises to do - made worse. Nothing makes better - gave her a muscle relaxant - not better. Allergies/Adverse Reactions: codeine Allergy (Verified 08/26/19 22:28) ezetimibe [From Vytorin] Allergy (Verified 08/26/19 22:28) metformin [From Glucophage] Allergy (Verified 08/26/19 22:28) oxycodone [From Percocet] Allergy (Verified 08/26/19 22:28) prochlorperazine [From Compazine] Allergy (Verified 08/26/19 22:28) simvastatin [From Vytorin] Allergy (Verified 08/26/19 22:28) morphine Adverse Reaction (Verified 08/26/19 22:28) Home Medications: Insulin Lispro [Humalog] 10 units SQ AC 09/22/16 [History] Sertraline HCl 100 mg [Zoloft 100 MG] 150 mg PO DAILY 09/22/16 [History] Tizanidine HCl 4 mg [Zanaflex 4 MG] 4 mg PO TID 09/22/16 [History] Naproxen Sodium [Naproxen Sodium Cr] 500 mg PO BID 05/20/17 [History] Furosemide [Lasix] 40 mg PO BID 11/27/17 [History] Losartan Potassium 100 mg PO DAILY 11/27/17 [History] Aspirin [[place] Aspirin EC] 81 mg PO DAILY 04/21/19 [History] Atorvastatin Calcium [Lipitor] 40 mg PO DAILY 04/21/19 [History] Bisoprolol Fumarate 10 mg PO DAILY 04/21/19 [History] Insulin Glargine/Lixisenatide [[place] 100 Unit-33 Mcg/ml Pen] 15 units SQ DAILY 04/21/19 [History] Levothyroxine Sodium 75 Mcg [Synthroid 75 Mcg] 75 mcg PO DAILY 04/21/19 [ History] Metformin HCl 500 mg [Glucophage 500 MG] 500 mg PO BIDWM 04/21/19 [History ] [place]-3/Dha/Epa/Fish Oil [Fish Oil 1,000 mg Softgel] 1,000 mg PO BID 04/21/19 [ History] Pregabalin [Lyrica 100Mg] 100 mg PO TID 04/21/19 [History] Hx Tetanus, Diphtheria Vaccination/Date Given: Yes Hx Influenza Vaccination/Date Given: Yes Hx Pneumococcal Vaccination/Date Given: Yes Immunizations Up to Date: Yes - Review of Systems Constitutional: No Symptoms Eyes: No Symptoms Ears, Nose, & Throat: No Symptoms Respiratory: No Symptoms Cardiac: No Symptoms Musculoskeletal: Neck Pain (posterior neck from base of skull to L shoulder) All Other Systems: Reviewed and Negative - Past Medical History Pertinent Past Medical History: Yes Neurological History: No Pertinent History ENT History: No Pertinent History Cardiac History: Congestive Heart Failure, Hypertension, Other Respiratory History: Asthma Endocrine Medical History: Diabetes Type II Musculoskeletal History: Degenerative Disk Disease, Other GI Medical History: GERD History: No Pertinent History Psycho-Social History: Depression Female Reproductive Disorders: Other Other Medical History: , R KNEE MENSICUS TEAR W/ REPAIR, plantar fascia,mrsa, chronic neck and back pain, vertigo - Past Surgical History Past Surgical History: Yes Neuro Surgical History: No Pertinent History Cardiac: Cardiac Catheterization Respiratory: No Pertinent History Gastrointestinal: Cholecystectomy, Hernia Repair Genitourinary: No Pertinent History Musculoskeletal: Orthopedic Surgery Female Surgical History: Tubal Ligation Other Surgical History: carpal tunel repair in right hand, knee surgery , lymph node removed, I&d lesion on head - Social History Smoking Status: Never smoker Exposure to second hand smoke: No Drug Use: none Patient Lives Alone: No - Female History Hx Last Menstrual Period: menopausal Hx Now: No - Nursing Vital Signs Nursing Vital Signs: Initial Vital Signs Temperature 98.0 F 08/26/19 22:28 Pulse Rate 65 08/26/19 22:28 Respiratory Rate 18 08/26/19 22:28 Blood Pressure 158/103 08/26/19 22:28 O2 Sat by Pulse Oximetry 96 08/26/19 22:28 Pain Scale Pain Intensity 5 - Physical Exam General Appearance: mild distress (Painful to turn head - worse turning to right - pulls/spasm on the left side) Eye Exam: PERRL/EOMI Ears, Nose, Throat Exam: normal ENT inspection, pharynx normal Neck Exam: normal inspection, other (palpable muscle spasm L cervical musculature to L shoulder) Respiratory Exam: normal breath sounds, lungs clear, airway intact Cardiovascular Exam: regular rate/rhythm, normal heart sounds, normal peripheral pulses Extremity Exam: normal inspection, normal range of motion Neurologic Exam: alert, oriented x 3, cooperative, normal mood/affect Skin Exam: normal color, warm, dry (L lower base of skull - slightly raised area 1 cm circular with mild erythema dry - no weeping ) Lymphatic Exam: No adenopathy (negative cervical lymphadenopathy) SpO2 Interpretation: normal SpO2: 96 O2 Delivery: Room Air - Course Nursing assessment & vital signs reviewed: Yes Ordered Tests: Medication Summary Discontinued Medications Generic Name Dose Route Start Last Admin Trade Name Freq PRN Reason Stop Dose Admin Hydrocodone Bitart/Acetaminophen 1 tab 08/26/19 22:54 08/26/19 22:58 [place] 7.5/325 Mg Tab PO 08/26/19 22:55 Not Given STAT ONE Hydrocodone Bitart/Acetaminophen 1 tab 08/26/19 22:58 08/26/19 23:00 [place] 5/325 Mg PO 08/26/19 22:59 1 tab STAT ONE Administration Hydrocodone Bitart/Acetaminophen Confirm 08/26/19 22:58 [place] 5/325 Mg Administered 08/26/19 22:59 Dose 1 tab .ROUTE .STK-MED ONE Dexamethasone Sodium Phosphate 8 mg 08/26/19 22:53 08/26/19 23:00 Decadron 4 Mg Inj IM 08/26/19 22:54 8 mg STAT ONE Administration Dexamethasone Sodium Phosphate Confirm 08/26/19 22:58 Decadron 4 Mg Inj Administered 08/26/19 22:59 Dose 8 mg .ROUTE .STK-MED ONE - Progress Progress Note: 08/26/19 23:45 Discussed plan and diagnosis with patient - shot tonight will not have immediate effect of relief; pain medication will help. - Departure Departure Disposition: Home Clinical Impression: Acute torticollis Condition: Stable Critical Care Time: No Referrals: MALLORY ELLIOTT MD [Primary Care Provider] - Additional Instructions: Take prednisone and norco (pain medication as prescribed); follow up with primary care as needed. Prescriptions: Hydrocodone Bit/Acetaminophen [[place] 7.5-325 Tablet] 1 each PO Q6H PRN PRN #14 tablet PRN Reason: Mild To Moderate Pain Prednisone 40 mg PO DAILY #12 tablet
[2019-08-26] MEDS ORDERED: NORCO 7.5/325 MG TAB PO ONE (22:54)
[2019-08-26] MEDS ORDERED: NORCO 5/325 MG PO ONE (22:58)
[2019-08-26] MEDS ORDERED: NORCO 5/325 MG ONE (22:58)
[2019-08-26] MEDS ORDERED: Decadron 4 MG INJ ONE (22:58)
[2019-08-26 23:55] VITALS: BP 110/56; PULSE 82
[2019-08-27 03:28] VITALS: O2SAT 96
== END 2019-08-27 00:05 | disposition home or self-care (01) ==
LOC: ED 22:16
DX: M43.6 Torticollis (principal)
CPT/HCPCS: 96372; 99283; J1100; A9270-GY

== ENCOUNTER 2019-09-06 12:30 | Emergency (ER) | payer MEDICAID ==
[2019-09-06] MEDS ORDERED: Hydromorphone 1 mg/ml Ampule IM ONE (12:51)
[2019-09-06] MEDS ORDERED: TYLENOL EXTRA STRENGTH 500 MG PO STA (12:52)
[2019-09-06] MEDS ORDERED: TORAdol 30 mg Injection IM ONE (12:52)
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
[2019-09-06] MEDS ORDERED: TORAdol 30 mg Injection ONE (13:13)
[2019-09-06] MEDS ORDERED: Hydromorphone 1 mg/ml Ampule ONE (13:13)
[2019-09-06] MEDS ORDERED: TYLENOL EXTRA STRENGTH 500 MG ONE (13:13)
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
[2019-09-06 14:29] VITALS: BP 156/82; PULSE 88; O2SAT 93
== END 2019-09-06 14:28 | disposition home or self-care (01) ==
LOC: ED 12:30
DX: I10 Essential (primary) hypertension (principal); M43.6 Torticollis; S13.4XXA Sprain of ligaments of cervical spine, initial encounter; M54.2 Cervicalgia; M50.30 Other cervical disc degeneration, unspecified cervical region; I50.9 Heart failure, unspecified; E11.9 Type 2 diabetes mellitus without complications
CPT/HCPCS: 72125; 96372; 99284; J1170; J1885; A9270-GY

== ENCOUNTER 2024-01-10 08:50 | Day surgery (SDC) | payer OTHER ==
[2024-01-10] MEDS ORDERED: Decadron 4 MG INJ IV ONE (08:51)
[2024-01-10] MEDS ORDERED: Sodium Chloride 0.9(Preservative Free) 10 ML IJ ONE (08:51)
[2024-01-10] MEDS ORDERED: DIPRIVAN 200 MG/20 ML IV ONE ×2 (10:33)
[2024-01-10] MEDS ORDERED: Lactated Ringers 1,000 ML IV ONE (11:22)
--- NOTE | 2024-01-10 12:08 | XRAY ---
Indication: Right L3-L5 transforaminal ALIZA. Intraoperative fluoroscopy was provided for 31 seconds. 4 digital spot image submitted for interpretation demonstrates posterior needle tips projecting over the expected right L3 and L4 nerve roots. Small amount of contrast injected for needle tip placement. Correlate with intraoperative findings/report.
--- NOTE | 2024-01-10 13:20 | XRAY ---
31 seconds of fluoroscopy was used in surgery for a right L3-L5 transforaminal ALIZA.
== END 2024-01-10 11:00 | disposition home or self-care (01) ==
LOC: SDC-PAIN 08:50
PROVIDERS: ATTEND Psychiatry & Neurology Pain Medicine
DX: M54.16 Radiculopathy, lumbar region (principal); E11.9 Type 2 diabetes mellitus without complications; Z79.899 Other long term (current) drug therapy
CPT/HCPCS: 64483; 64484; 72100; 77003; 82947; J1100; J2704; Q9966

== ENCOUNTER 2024-12-24 14:27 | Emergency (ER) | payer OTHER ==
--- NOTE | 2024-12-24 14:34 | ERPHSYRPT ---
- History of Present Illness Time Seen by Provider: 12/24/24 14:34 Historian: patient, family Exam Limitations: no limitations Physician History: This is an obese 59-year-old white female patient who presents to the emergency department by private vehicle secondary to pain in the right lower quadrant and is worsened. Patient has no right flank pain. Patient has had a cholecystectomy in the past. She denies shortness of breath and she denies chest pain. She has been taking Pepto-Bismol without benefit. She describes the pain is moderate in intensity that is constant and squeezing. Patient states she does not do well with morphine but she has used Dilaudid in the past without untoward effects. Patient has a history of diabetes, angina, hypothyroidism, hyperlipidemia, asthma, COPD, degenerative disc disease, gastroesophageal reflux disease, depression and hypertension. Patient states she is postmenopausal. Timing/Duration: yesterday Activities at Onset: none Quality: aching, cramping, other (Squeezing) Abdominal Pain Onset Location: RLQ Pain Radiation: no radiation Severity of Pain-Max: moderate Severity of Pain-Current: moderate Modifying Factors: Improves With: nothing Associated Symptoms: denies symptoms Previous symptoms: no prior history, no recent treatment Allergies/Adverse Reactions: codeine Allergy (Verified 12/24/24 14:55) empagliflozin [From Jardiance] Allergy (Verified 12/24/24 14:55) ezetimibe [From Vytorin] Allergy (Verified 12/24/24 14:55) metformin [From Glucophage] Allergy (Verified 12/24/24 14:55) oxycodone [From Percocet] Allergy (Verified 12/24/24 14:55) prochlorperazine [From Compazine] Allergy (Verified 12/24/24 14:55) semaglutide [From Ozempic] Allergy (Verified 12/24/24 14:55) simvastatin [From Vytorin] Allergy (Verified 12/24/24 14:55) umeclidinium [From Incruse Ellipta] Allergy (Verified 12/24/24 14:55) morphine Adverse Reaction (Verified 12/24/24 14:55) Home Medications: Insulin Lispro [Humalog] 1 units SQ AC 09/22/16 [History] Sertraline HCl 100 mg [Zoloft 100 MG] 200 mg PO DAILY 09/22/16 [History] Bisoprolol Fumarate 10 mg PO DAILY 04/21/19 [History] Pregabalin [Lyrica 100Mg] 150 mg PO TID 04/21/19 [History] Amlodipine Besylate [Norvasc] 2.5 mg PO DAILY 12/24/24 [History] Calcium Carbonate [Calcium] 600 mg PO DAILY 12/24/24 [History] Dapagliflozin Propanediol [Farxiga] 10 mg PO DAILY 12/24/24 [History] Insulin Glargine [Lantus Insulin] 44 unit SQ DAILY 12/24/24 [History] Isosorbide Mononitrate 30 mg [Imdur 30 MG] 30 mg PO DAILY 12/24/24 [History] Levothyroxine Sodium 100 Mcg [Synthroid 100 Mcg] 100 mcg PO DAILY 12/24/24 [History] Losartan Potassium 50 mg [Cozaar 50 MG] 50 mg PO HS 12/24/24 [History] Magnesium Oxide [Magnesium] 400 mg PO DAILY 12/24/24 [History] Montelukast Sodium 10 mg [Singulair 10 MG] 10 mg PO HS 12/24/24 [History] Multivitamin 1 tab PO DAILY 12/24/24 [History] Rosuvastatin Calcium 40 mg PO HS 12/24/24 [History] Theophylline Anhydrous [Theophylline ER] 400 mg PO DAILY 12/24/24 [History] Hx Tetanus, Diphtheria Vaccination/Date Given: Yes Hx Influenza Vaccination/Date Given: Yes (Dr Mendez office 08/27/19) Hx Pneumococcal Vaccination/Date Given: No Travel Risk - International Travel Have you traveled outside of the country in past 3 weeks: No - Emerging Infectious Disease Are you exhibiting symptoms associated with any current EIDs: No - Review of Systems Constitutional: No Symptoms Eyes: No Symptoms Ears, Nose, & Throat: No Symptoms Respiratory: No Symptoms Cardiac: No Symptoms Abdominal/Gastrointestinal: Abdominal Pain (Right lower quadrant) Genitourinary Symptoms: No Symptoms Musculoskeletal: No Symptoms Skin: No Symptoms Neurological: No Symptoms Psychological: No Symptoms Endocrine: No Symptoms Hematologic/Lymphatic: No Symptoms Immunological/Allergic: No Symptoms All Other Systems: Reviewed and Negative - Past Medical History Pertinent Past Medical History: Yes Neurological History: No Pertinent History ENT History: No Pertinent History Cardiac History: Angina, High Cholesterol, Hypertension Respiratory History: Asthma, COPD, Sleep Apnea Endocrine Medical History: Diabetes Type II, Hyperthyroidism Musculoskeletal History: Degenerative Disk Disease GI Medical History: GERD History: No Pertinent History Psycho-Social History: Depression Female Reproductive Disorders: Other Other Medical History: , R KNEE MENSICUS TEAR W/ REPAIR, plantar fascia,mrsa, chronic neck and back pain, vertigo - Past Surgical History Past Surgical History: Yes Neuro Surgical History: No Pertinent History Cardiac: Cardiac Catheterization Respiratory: No Pertinent History Gastrointestinal: Cholecystectomy, Hernia Repair Genitourinary: No Pertinent History Musculoskeletal: Orthopedic Surgery Female Surgical History: Tubal Ligation Other Surgical History: carpal tunel repair in right hand, knee surgery , lymph node removed, I&d lesion on head - Social History Smoking Status: Never smoker Exposure to second hand smoke: No Drug Use: none Patient Lives Alone: No - Nursing Vital Signs Nursing Vital Signs: Initial Vital Signs Temperature 97.5 F 12/24/24 14:53 Pulse Rate 100 H 12/24/24 14:53 Respiratory Rate 33 H 12/24/24 14:53 Blood Pressure 164/87 12/24/24 14:53 O2 Sat by Pulse Oximetry 96 12/24/24 14:53 Pain Scale Pain Intensity 7 - Physical Exam General Appearance: mild distress, alert, anxiety, obese Eye Exam: PERRL/EOMI, eyes nml inspection Ears, Nose, Throat Exam: normal ENT inspection, moist mucous membranes Neck Exam: normal inspection, non-tender, supple, full range of motion Respiratory Exam: normal breath sounds, lungs clear, airway intact, No chest tenderness, No respiratory distress Cardiovascular Exam: regular rate/rhythm, normal heart sounds, normal peripheral pulses Gastrointestinal/Abdomen Exam: soft, normal bowel sounds, tenderness (Right lower quadrant right suprapubic region), guarding (Right lower quadrant and right suprapubic region to palpation) Pelvic Exam: not done Rectal Exam: not done Back Exam: normal inspection, normal range of motion, No CVA tenderness, No vertebral tenderness Extremity Exam: normal inspection, normal range of motion, pelvis stable Neurologic Exam: alert, oriented x 3, cooperative, excel vba developer II-XII nml as tested, nml cerebellar function, nml station & gait, sensation nml Skin Exam: normal color, warm, dry Lymphatic Exam: No adenopathy SpO2 Interpretation: normal O2 Delivery: Room Air - Course Nursing assessment & vital signs reviewed: Yes Ordered Tests: Active Orders 24 hr Category Date Time Status IV Insertion STAT Care 12/24/24 15:32 Active ABDOMEN AND PELVIS W/0 CONTRAS [CT] Stat Exams 12/24/24 15:32 Completed AMYLASE Stat Lab 12/24/24 15:45 Completed CBC W DIFF Stat Lab 12/24/24 15:32 Completed CMP Stat Lab 12/24/24 15:45 Completed LIPASE Stat Lab 12/24/24 15:45 Completed UA W/RFX UR CULTURE Stat Lab 12/24/24 15:34 Completed Medication Summary Discontinued Medications Generic Name Dose Route Start Last Admin Trade Name Freq PRN Reason Stop Dose Admin Hydromorphone HCl 1 mg 12/24/24 15:44 12/24/24 15:47 Hydromorphone 1 Mg/1ml Inj IV 12/24/24 15:45 1 mg STAT ONE Administration Hydromorphone HCl Confirm 12/24/24 15:46 Hydromorphone 1 Mg/1ml Inj Administered 12/24/24 15:47 Dose 1 mg .ROUTE .STK-MED ONE Ondansetron HCl 4 mg 12/24/24 15:32 12/24/24 15:35 Ondansetron Hcl 4 Mg/2 Ml Vial IV 12/24/24 15:33 4 mg STAT ONE Administration Ondansetron HCl Confirm 12/24/24 15:35 Ondansetron Hcl 4 Mg/2 Ml Vial Administered 12/24/24 15:36 Dose 4 mg .ROUTE .STK-MED ONE Lab/Rad Data: Laboratory Result Diagrams 12/24/24 15:32 12/24/24 15:45 Laboratory Results 12/24/24 12/24/24 12/24/24 Range/Units 15:45 15:34 15:32 WBC 8.4 (3.98-10.04) x10^3/uL RBC 4.65 (3.93-5.22) x10^6/uL Hgb 13.6 (11.2-15.7) g/dL Hct 40.9 (34.1-44.9) % MCV 88.0 (79.4-94.8) fL MCH 29.2 (25.6-32.2) pg MCHC 33.3 (32.2-35.5) g/dL RDW 13.3 (11.7-14.4) % Plt Count 269 (182-369) x10^3/uL MPV 10.7 (9.4-12.3) fL Gran % 63.0 (34.0-71.1) % Immature Gran % (Auto) 0.2 (0.001-0.429) % Nucleat RBC Rel Count 0.0 (0.00-0.2) % Eos # (Auto) 0.35 (0.04-0.36) x10^3/uL Immature Gran # (Auto) 0.02 (0.001-0.031) x10^3u/L Absolute Lymphs (auto) 1.97 (1.18-3.74) x10^3/uL Absolute Monos (auto) 0.72 (0.24-0.86) x10^3/uL Absolute Nucleated RBC 0.00 (0.00-0.012) x10^3u/L Lymphocytes % 23.5 (19.3-51.7) % Monocytes % 8.6 (4.7-12.5) % Eosinophils % 4.2 (0.7-5.8) % Basophils % 0.5 (0.1-1.2) % Absolute Granulocytes 5.29 (1.56-6.13) x10^3/uL Basophils # 0.04 (0.01-0.08) x10^3/uL Sodium 137 (135-145) mmol/L Potassium 4.2 (3.5-5.1) mmol/L Chloride 105 (98-107) mmol/L Carbon Dioxide 24 (22-30) mmol/L Anion Gap 12.5 (5-15) MEQ/L BUN 20 H (7-17) mg/dL Creatinine 1.07 H (0.52-1.04) mg/dL Estimated GFR 60.6 ML/MIN Glucose 202 H (74-106) mg/dL Calcium 9.0 (8.4-10.2) mg/dL Total Bilirubin 0.40 (0.2-1.3) mg/dL AST 28 (14-36) U/L ALT 23 (0-35) U/L Alkaline Phosphatase 76 (38-126) U/L Serum Total Protein 7.5 (6.3-8.2) g/dL Albumin 4.4 (3.5-5.0) g/dL Amylase 59 (30-110) U/L Lipase 145 (23-300) U/L Urine Color Yellow (Yellow) Urine Appearance Clear (Clear) Urine pH 5.5 (4.6-8.0) Ur Specific [place] >=1.030 A (1.005-1.030) Urine Protein Negative (Negative) Urine Glucose (UA) 500 A (Negative) mg/dL Urine Ketones Negative (Negative) Urine Blood Negative (Negative) Urine Nitrite Negative (Negative) Urine Bilirubin Negative (Negative) Urine Urobilinogen 0.2 (0.2) mg/dL Ur Leukocyte Esterase Negative (Negative) U Hyaline Cast (Auto) NONE SEEN (0-2) /LPF Urine Microscopic RBC 0-2 (0-5) /HPF Urine Microscopic WBC 0-2 (0-5) /HPF Ur Epithelial Cells None Seen (None Seen) /HPF Urine Bacteria None Seen (None Seen) /HPF Urine Culture Reflexed NO (NO) - Progress Progress: improved, pain not gone completely Progress Note: 12/24/24 16:03 My medical decision making and the assignment of moderate complexity to this patient's medical issue today is based on review of the patient's past medical history, review of the patient's medication list, reviewed patient drug allergy list, history of present illness and physical findings on examination. The workup in this patient includes placement of a intravenous line, CBC, CMP, amylase, lipase, urinalysis, CT scan of the abdomen pelvis without contrast. Differential diagnosis includes but is not limited to pyelonephritis, ureterolithiasis, colitis, diverticulitis, acute appendicitis, ovarian pathology 12/24/24 17:03 I interpreted the patient's laboratory data results. Based on the laboratory data results, there are no acute, emergent medical issues. The CT scan of the abdomen pelvis was interpreted by the radiologist and I reviewed the impression. The impression states small fatty periumbilical hernia. Normal appendix. Noncontrasted stomach and small bowel loops appear nonobstructed. There is no free fluid. There is no free air. No acute findings on this noncontrasted exam Counseled pt/family regarding: lab results, diagnosis, need for follow-up, rad results Medical Desision Making - Diagnostic Testing Diagnostic test were ordered, analyzed, and reviewed by me: Yes Radiological Interpretation: Reviewed by me, Teleradiologist Report - Risk of complications Low Risk: Low risk of morbidity from additional dx testing or treatment - Departure Departure Disposition: Home Clinical Impression: Abdominal pain Condition: Stable Critical Care Time: No Referrals: [facility] [Primary Care Provider] - Follow up/PCP as directed Additional Instructions: Drink plenty of clear liquids. Do not advance your diet until you are drinking clear liquids well. Use Tylenol and ibuprofen for pain control if there are no contraindications to do so. Call your primary care provider tomorrow, 12/25/2024, to make arrangements for follow-up appointment for further evaluation and management.
[2024-12-24 14:58] VITALS: TEMP 97.5
[2024-12-24] MEDS ORDERED: Zofran 4 MG/2 ML VIAL ONE (15:35)
[2024-12-24] MEDS: Zofran 4 MG/2 ML VIAL IV ONE (15:35)
[2024-12-24 15:40] LABS: Appearance Clear (Clear); Bilirubin Negative (Negative); Blood Negative (Negative); Glucose, Urine 500 mg/dL (Negative); Ketones Negative (Negative); Leukocyte Esterase Negative (Negative); Nitrite Negative (Negative); Ph 5.5 (4.6-8.0); Protein,Urine Dip Negative (Negative); Specific Gravity >=1.030 (1.005-1.030); Urobilinogen 0.2 mg/dL (0.2)
[2024-12-24] MEDS ORDERED: Hydromorphone 1 mg/ml Injection ONE (15:46)
[2024-12-24] MEDS: Hydromorphone 1 mg/ml Injection IV ONE (15:47)
[2024-12-24 15:50] LABS: Bacteria None Seen /HPF (None Seen); Epithelial Cells None Seen /HPF (None Seen); Hyaline Casts NONE SEEN /LPF (0-2); RBC 0-2 /HPF (0-5); WBC 0-2 /HPF (0-5)
[2024-12-24 16:00] LABS: Absolute Neutrophil Ct (ANC) 5.29 x10^3/uL (1.56-6.13); BASOPHIL % 0.5 % (0.1-1.2); Basophil (Absolute #) 0.04 x10^3/uL (0.01-0.08); Eosinophil % 4.2 % (0.7-5.8); Eosinophil (Absolute #) 0.35 x10^3/uL (0.04-0.36); Hematocrit 40.9 % (34.1-44.9); Hemoglobin 13.6 g/dL (11.2-15.7); IMMATURE GRAN # 0.02 x10^3u/L (0.001-0.031); IMMATURE GRAN % 0.2 % (0.001-0.429); Lymphocyte (Absolute #) 1.97 x10^3/uL (1.18-3.74); Lymphocytes % 23.5 % (19.3-51.7); Mean Corpuscular Hemoglobin 29.2 pg (25.6-32.2); Mean Corpuscular Hgb Concent. 33.3 g/dL (32.2-35.5); Mean Platelet Volume 10.7 fL (9.4-12.3); Monocyte (Absolute #) 0.72 x10^3/uL (0.24-0.86); Monocytes % 8.6 % (4.7-12.5); Platelet Count 269 x10^3/uL (182-369); Red Blood Count 4.65 x10^6/uL (3.93-5.22); Red Cell Distribution Width 13.3 % (11.7-14.4); White Blood Count 8.4 x10^3/uL (3.98-10.04)
[2024-12-24 16:18] LABS: ALBUMIN 4.4 g/dL (3.5-5.0); ANION GAP 12.5 MEQ/L (5-15); BILIRUBIN,TOTAL 0.4 mg/dL (0.2-1.3); Creatinine 1 1.07 mg/dL (0.52-1.04); EST GLOMERULAR FILTRATION RATE 60.6 ML/MIN; Potassium 4.2 mmol/L (3.5-5.1); Total Protein 7.5 g/dL (6.3-8.2)
--- NOTE | 2024-12-24 16:55 | XRAY ---
Indication: Right lower quadrant pain. Multiple contiguous axial images obtained through the abdomen and pelvis without contrast. Comparison: None Lung bases clear. Heart not enlarged. Small hiatal hernia. Noncontrasted stomach and bowel loops appear nonobstructed with normal appendix. Previous cholecystectomy. No free fluid/air. Remaining liver, pancreas, spleen, adrenal glands, kidneys, ureters, bladder, and uterus are unremarkable for noncontrast exam. Mild scattered aortoiliac calcifications without AAA. Osseous structures intact with minimal/mild degenerative changes throughout thoracolumbar spine. Small fatty periumbilical hernia. Impression: Chronic findings including hiatal hernia, arteriosclerotic disease, chronic bony findings, and fatty periumbilical hernia. No acute findings on this noncontrast exam.
[2024-12-24 17:12] VITALS: BP 107/76; PULSE 67; RESP 15; O2SAT 97
== END 2024-12-24 17:35 | disposition home or self-care (01) ==
LOC: ED 14:27
DX: R10.31 Right lower quadrant pain (principal); E11.9 Type 2 diabetes mellitus without complications; E78.5 Hyperlipidemia, unspecified; I10 Essential (primary) hypertension; Z79.4 Long term (current) use of insulin; Z79.84 Long term (current) use of oral hypoglycemic drugs; Z79.899 Other long term (current) drug therapy
CPT/HCPCS: 36415; 74176; 80053; 81001; 82150; 83690; 85025; 96374; 96375; 99284; 99285; J1171; J2405

== ENCOUNTER 2025-01-21 13:04 | Observation (INO) | payer OTHER ==
--- NOTE | 2025-01-21 13:53 | ERPHSYRPT ---
- History of Present Illness Time Seen by Provider: 01/21/25 13:50 Source: patient Exam Limitations: no limitations Patient Subjective Stated Complaint: pt states that she was diagnosed with covid on 01/16. pt states that she went to [facility] today. pt states they told her today she had pneumonia. pt states that she didn't have a chest xray. pt states she received a steroid shot and a antibotic sent to the pharmacy Triage Nursing Assessment: pt ambulated into the er; pt is axo x4; c/o cough; pt states 5/10 pain with coughing; clear lung sounds in all lobes; dry hacking cough; skin PDW; no respiratory distress present; Physician History: Patient is a 59-year-old female presents to our emergency department for evalu ation of dry cough. Patient recently diagnosed with COVID-19 on 01/16/2025. Patient went to an outside clinic. Patient was advised to obtain a chest x-ray as they felt patient may have pneumonia. Patient complains of generalized weakness. Patient symptoms have been progressive over the past week. No active fever at this time. No chest pain. at bedside. They voiced no other complaints or concerns at this time. Portions of this note were created with voice recognition technology. There may be grammatical, spelling, punctuation or sound alike errors Timing/Duration: day(s) Severity: moderate (5 days) Modifying Factors: Improves With: nothing Associated Symptoms: denies symptoms Allergies/Adverse Reactions: codeine Allergy (Verified 01/21/25 13:15) empagliflozin [From Jardiance] Allergy (Verified 01/21/25 13:15) ezetimibe [From Vytorin] Allergy (Verified 01/21/25 13:15) metformin [From Glucophage] Allergy (Verified 01/21/25 13:15) oxycodone [From Percocet] Allergy (Verified 01/21/25 13:15) prochlorperazine [From Compazine] Allergy (Verified 01/21/25 13:15) semaglutide [From Ozempic] Allergy (Verified 01/21/25 13:15) simvastatin [From Vytorin] Allergy (Verified 01/21/25 13:15) umeclidinium [From Incruse Ellipta] Allergy (Verified 01/21/25 13:15) morphine Adverse Reaction (Verified 01/21/25 13:15) Home Medications: Insulin Lispro [Humalog] 10 units SQ AC 09/22/16 [History] Sertraline HCl 100 mg [Zoloft 100 MG] 200 mg PO DAILY 09/22/16 [History] Bisoprolol Fumarate 10 mg PO DAILY 04/21/19 [History] Pregabalin [Lyrica 100Mg] 150 mg PO TID 04/21/19 [History] Amlodipine Besylate [Norvasc] 2.5 mg PO HS 12/24/24 [History] Calcium Carbonate [Calcium] 600 mg PO DAILY 12/24/24 [History] Dapagliflozin Propanediol [Farxiga] 10 mg PO DAILY 12/24/24 [History] Insulin Glargine [Lantus Insulin] 45 unit SQ DAILY 12/24/24 [History] Isosorbide Mononitrate 30 mg [Imdur 30 MG] 30 mg PO DAILY 12/24/24 [History] Levothyroxine Sodium 100 Mcg [Synthroid 100 Mcg] 100 mcg PO DAILY 12/24/24 [History] Losartan Potassium 50 mg [Cozaar 50 MG] 50 mg PO HS 12/24/24 [History] Magnesium Oxide [Magnesium] 400 mg PO DAILY 12/24/24 [History] Montelukast Sodium 10 mg [Singulair 10 MG] 10 mg PO HS 12/24/24 [History] Multivitamin 1 tab PO DAILY 12/24/24 [History] Rosuvastatin Calcium 20 mg PO HS 12/24/24 [History] Theophylline Anhydrous [Theophylline ER] 400 mg PO DAILY 12/24/24 [History] Doxycycline Hyclate 100 mg [Vibramycin 100 MG] 100 mg PO BID 01/21/25 [History] Omeprazole 20 mg PO BID 01/21/25 [History] Hx Tetanus, Diphtheria Vaccination/Date Given: Yes Hx Influenza Vaccination/Date Given: No Hx Pneumococcal Vaccination/Date Given: Yes Travel Risk - International Travel Have you traveled outside of the country in past 3 weeks: No - Emerging Infectious Disease Are you exhibiting symptoms associated with any current EIDs: Yes Symptoms: Cough: New Onset Comment: covid + 01/16/25 - Review of Systems Constitutional: No Symptoms, No Fever, No Chills Eyes: No Symptoms Ears, Nose, & Throat: No Symptoms Respiratory: No Symptoms, No Cough, No Dyspnea Cardiac: No Symptoms, No Chest Pain, No Edema, No Syncope Abdominal/Gastrointestinal: No Symptoms, No Abdominal Pain, No Nausea, No Vomiting, No Diarrhea Genitourinary Symptoms: No Symptoms, No Dysuria Musculoskeletal: No Symptoms, No Back Pain, No Neck Pain Skin: No Symptoms, No Rash Neurological: No Symptoms, No Dizziness, No Focal Weakness, No Sensory Changes Psychological: No Symptoms Endocrine: No Symptoms All Other Systems: Reviewed and Negative - Past Medical History Pertinent Past Medical History: Yes Neurological History: No Pertinent History ENT History: No Pertinent History Cardiac History: Angina, High Cholesterol, Hypertension Respiratory History: Asthma, COPD, Sleep Apnea Endocrine Medical History: Diabetes Type II, Hyperthyroidism Musculoskeletal History: Degenerative Disk Disease GI Medical History: GERD History: No Pertinent History Psycho-Social History: Depression Female Reproductive Disorders: Other Other Medical History: , R KNEE MENSICUS TEAR W/ REPAIR, plantar fascia,mrsa, chronic neck and back pain, vertigo - Past Surgical History Past Surgical History: Yes Neuro Surgical History: No Pertinent History Cardiac: Cardiac Catheterization Respiratory: No Pertinent History Gastrointestinal: Cholecystectomy, Hernia Repair Genitourinary: No Pertinent History Musculoskeletal: Orthopedic Surgery Female Surgical History: Tubal Ligation Other Surgical History: carpal tunel repair in right hand, knee surgery , lymph node removed, I&d lesion on head - Social History Smoking Status: Never smoker Exposure to second hand smoke: No Drug Use: none - Social Determinants of Health Will the patient participate in the screening: Yes Do you worry about a steady place to live?: No Do you have any problems with any of the following?: No known problems In the past 12 months,have you had to go without utilities?: No Transportation Issues: No Has anyone in your support network made you feel unsafe?: No Have you or anyone in your house had to go w/o enough food: No - Nursing Vital Signs Nursing Vital Signs: Initial Vital Signs Temperature 96.7 F 01/21/25 13:16 Pulse Rate 84 01/21/25 13:16 Respiratory Rate 24 01/21/25 13:16 Blood Pressure 142/92 01/21/25 13:16 O2 Sat by Pulse Oximetry 96 01/21/25 13:16 Pain Scale Pain Intensity 0 - Physical Exam General Appearance: no apparent distress, alert Eye Exam: PERRL/EOMI, eyes nml inspection Ears, Nose, Throat Exam: normal ENT inspection, TMs normal, pharynx normal, moist mucous membranes Neck Exam: normal inspection, non-tender, supple, full range of motion Respiratory Exam: normal breath sounds, lungs clear, No respiratory distress Cardiovascular Exam: regular rate/rhythm, normal heart sounds, normal peripheral pulses Gastrointestinal/Abdomen Exam: soft, normal bowel sounds, No tenderness, No mass Back Exam: normal inspection, normal range of motion, No CVA tenderness, No vertebral tenderness Extremity Exam: normal inspection, normal range of motion, pelvis stable Neurologic Exam: alert, oriented x 3, cooperative, normal mood/affect, sensation nml, No motor deficits Skin Exam: normal color, warm, dry, No rash Lymphatic Exam: No adenopathy SpO2 Interpretation: normal SpO2: 97 O2 Delivery: Room Air - Course Nursing assessment & vital signs reviewed: Yes EKG Interpreted by Me: RATE (76), Sinus Rhythm, NORMAL AXIS, NORMAL INTERVALS, NORMAL QRS - Radiology Exams Chest X-ray Interpretation: Teleradiologist Report (New infrahilar interstitial opacity) Ordered Tests: Active Orders 24 hr Category Date Time Status Commercial Pest Control Technician STAT Care 01/21/25 13:47 Active EKG-ER Only STAT Care 01/21/25 13:47 Active IV Insertion STAT Care 01/21/25 13:47 Active Pulse Oximetry (ED) STAT Care 01/21/25 13:47 Active CHEST 1 VIEW (PORTABLE) Stat Exams 01/21/25 13:47 Completed BLOOD CULTURE Stat Lab 01/21/25 14:40 Received CBC W DIFF Stat Lab 01/21/25 14:40 Completed CMP Stat Lab 01/21/25 14:40 Completed NT PRO BNPII Stat Lab 01/21/25 14:40 Completed TROPONIN Q4H Lab 01/21/25 14:40 Completed TROPONIN Q4H Lab 01/21/25 18:00 Ordered TROPONIN Q4H Lab 01/21/25 22:00 Ordered UA W/RFX UR CULTURE Stat Lab 01/21/25 13:57 Completed Transfer Order Routine Transfer 01/21/25 Ordered Medication Summary Discontinued Medications Generic Name Dose Route Start Last Admin Trade Name Freq PRN Reason Stop Dose Admin Acetaminophen 1,000 mg 01/21/25 14:11 01/21/25 14:13 Acetaminophen 500 Mg Tablet PO 01/21/25 14:12 1,000 mg STAT STA Administration Acetaminophen Confirm 01/21/25 14:13 Acetaminophen 500 Mg Tablet Administered 01/21/25 14:14 Dose 1,000 mg .ROUTE .STK-MED ONE Azithromycin 500 mg in 250 mls @ 250 mls/hr 01/21/25 14:16 01/21/25 16:17 Zithromax 500 Mg/ 250 Ml Nacl Premix IV 01/21/25 15:15 250 mls/hr STAT STA 250 mls/hr Infusion Ceftriaxone Sodium 2 gm in 100 mls @ 200 mls/hr 01/21/25 14:16 01/21/25 15:09 Rocephin 2 Gm/100 Ml Nacl IV 01/21/25 14:45 Infused STAT ONE Infusion Ceftriaxone Sodium Confirm 01/21/25 14:27 Rocephin 2 Gm/100 Ml Nacl Administered 01/21/25 14:28 Dose 2 gm in 100 mls @ ud IV .STK-MED ONE Azithromycin Confirm 01/21/25 15:14 Zithromax 500 Mg/ 250 Ml Nacl Premix Administered 01/21/25 15:15 Dose 500 mg in 250 mls @ ud IV .STK-MED ONE Lab/Rad Data: Laboratory Result Diagrams 01/21/25 14:40 01/21/25 14:40 Laboratory Results 01/21/25 01/21/25 01/21/25 Range/Units 14:40 14:40 14:40 WBC 6.9 (3.98-10.04) x10^3/uL RBC 4.36 (3.93-5.22) x10^6/uL Hgb 12.8 (11.2-15.7) g/dL Hct 38.1 (34.1-44.9) % MCV 87.4 (79.4-94.8) fL MCH 29.4 (25.6-32.2) pg MCHC 33.6 (32.2-35.5) g/dL RDW 12.6 (11.7-14.4) % Plt Count 287 (182-369) x10^3/uL MPV 9.9 (9.4-12.3) fL Gran % 60.0 (34.0-71.1) % Immature Gran % (Auto) 0.3 (0.001-0.429) % Nucleat RBC Rel Count 0.0 (0.00-0.2) % Eos # (Auto) 0.24 (0.04-0.36) x10^3/uL Immature Gran # (Auto) 0.02 (0.001-0.031) x10^3u/L Absolute Lymphs (auto) 1.93 (1.18-3.74) x10^3/uL Absolute Monos (auto) 0.54 (0.24-0.86) x10^3/uL Absolute Nucleated RBC 0.00 (0.00-0.012) x10^3u/L Lymphocytes % 28.0 (19.3-51.7) % Monocytes % 7.8 (4.7-12.5) % Eosinophils % 3.5 (0.7-5.8) % Basophils % 0.4 (0.1-1.2) % Absolute Granulocytes 4.14 (1.56-6.13) x10^3/uL Basophils # 0.03 (0.01-0.08) x10^3/uL Sodium 140 (135-145) mmol/L Potassium 4.3 (3.5-5.1) mmol/L Chloride 107 (98-107) mmol/L Carbon Dioxide 22 (22-30) mmol/L Anion Gap 15.9 H (5-15) MEQ/L BUN 21 H (7-17) mg/dL Creatinine 0.50 L (0.52-1.04) mg/dL Estimated GFR 109.3 ML/MIN Glucose 159 H (74-106) mg/dL Calcium 9.4 (8.4-10.2) mg/dL Total Bilirubin 0.40 (0.2-1.3) mg/dL AST 23 (14-36) U/L ALT 22 (0-35) U/L Alkaline Phosphatase 87 (38-126) U/L Troponin I < 0.012 (0.000-0.033) ng/mL NT-Pro-B Natriuret Pep 326 (<300) pg/mL Serum Total Protein 7.0 (6.3-8.2) g/dL Albumin 4.0 (3.5-5.0) g/dL Urine Color (Yellow) Urine Appearance (Clear) Urine pH (4.6-8.0) Ur Specific Stanton (1.005-1.030) Urine Protein (Negative) Urine Glucose (UA) (Negative) mg/dL Urine Ketones (Negative) Urine Blood (Negative) Urine Nitrite (Negative) Urine Bilirubin (Negative) Urine Urobilinogen (0.2) mg/dL Ur Leukocyte Esterase (Negative) U Hyaline Cast (Auto) (0-2) /LPF Urine Microscopic RBC (0-5) /HPF Urine Microscopic WBC (0-5) /HPF Ur Epithelial Cells (None Seen) /HPF Urine Bacteria (None Seen) /HPF Urine Culture Reflexed (NO) 01/21/25 Range/Units 13:57 WBC (3.98-10.04) x10^3/uL RBC (3.93-5.22) x10^6/uL Hgb (11.2-15.7) g/dL Hct (34.1-44.9) % MCV (79.4-94.8) fL MCH (25.6-32.2) pg MCHC (32.2-35.5) g/dL RDW (11.7-14.4) % Plt Count (182-369) x10^3/uL MPV (9.4-12.3) fL Gran % (34.0-71.1) % Immature Gran % (Auto) (0.001-0.429) % Nucleat RBC Rel Count (0.00-0.2) % Eos # (Auto) (0.04-0.36) x10^3/uL Immature Gran # (Auto) (0.001-0.031) x10^3u/L Absolute Lymphs (auto) (1.18-3.74) x10^3/uL Absolute Monos (auto) (0.24-0.86) x10^3/uL Absolute Nucleated RBC (0.00-0.012) x10^3u/L Lymphocytes % (19.3-51.7) % Monocytes % (4.7-12.5) % Eosinophils % (0.7-5.8) % Basophils % (0.1-1.2) % Absolute Granulocytes (1.56-6.13) x10^3/uL Basophils # (0.01-0.08) x10^3/uL Sodium (135-145) mmol/L Potassium (3.5-5.1) mmol/L Chloride (98-107) mmol/L Carbon Dioxide (22-30) mmol/L Anion Gap (5-15) MEQ/L BUN (7-17) mg/dL Creatinine (0.52-1.04) mg/dL Estimated GFR ML/MIN Glucose (74-106) mg/dL Calcium (8.4-10.2) mg/dL Total Bilirubin (0.2-1.3) mg/dL AST (14-36) U/L ALT (0-35) U/L Alkaline Phosphatase (38-126) U/L Troponin I (0.000-0.033) ng/mL NT-Pro-B Natriuret Pep (<300) pg/mL Serum Total Protein (6.3-8.2) g/dL Albumin (3.5-5.0) g/dL Urine Color Yellow (Yellow) Urine Appearance Clear (Clear) Urine pH 5.5 (4.6-8.0) Ur Specific Stanton 1.020 (1.005-1.030) Urine Protein Negative (Negative) Urine Glucose (UA) >=1000 A (Negative) mg/dL Urine Ketones Negative (Negative) Urine Blood Negative (Negative) Urine Nitrite Negative (Negative) Urine Bilirubin Negative (Negative) Urine Urobilinogen 0.2 (0.2) mg/dL Ur Leukocyte Esterase Negative (Negative) U Hyaline Cast (Auto) NONE SEEN (0-2) /LPF Urine Microscopic RBC 0-2 (0-5) /HPF Urine Microscopic WBC 0-2 (0-5) /HPF Ur Epithelial Cells None Seen (None Seen) /HPF Urine Bacteria None Seen (None Seen) /HPF Urine Culture Reflexed NO (NO) - Progress Progress: improved Progress Note: 59-year-old female diagnosed with COVID-19 on 04/15/2025. Patient states that she has been experiencing progressive shortness of breath cough and generalized weakness since. Physical exam essentially nonremarkable. Chest x-ray shows a right infrahilar pneumonia. Blood cultures obtained. Antibiotics infused. Patient states she feels too weak to go home. UA revealed glucosuria. No UTI. Case discussed with Dr. Espana who accepts admission to observation at 4:39 PM. Plan of care discussed with patient. She agrees to admission to [facility] for further evaluation and treatment. Portions of this note were created with voice recognition technology. There may be grammatical, spelling, punctuation or sound alike errors Complexity of problem addressed is moderate acute complicated. No critical care time. Complexity of data reviewed and analyzed is extensive. Test ordered chest reviewed results analyzed and correlated clinically with history and physical exam. Risk of complication and or risk of morbidity/mortality of patient management is high. Patient requires hospitalization for further evaluation and treatment. Vital stable. Time spent to admit patient is approximately 15 minutes. Plan of care established for shared decision making. No social determinants of health present to impede follow-up. Portions of this note were created with voice recognition technology. There may be grammatical, spelling, punctuation or sound alike errors 01/21/25 16:41 Counseled pt/family regarding: lab results, diagnosis, need for follow-up - Departure Departure Disposition: Observation Clinical Impression: COVID-19, Pneumonia, Generalized weakness Condition: Stable Critical Care Time: No Referrals: CHRISTIANO COHEN FNP [Primary Care Provider] - Follow up/PCP as directed
--- NOTE | 2025-01-21 14:00 | XRAY ---
Indication: Short of breath. Comparison: August 13, 2024 Portable chest demonstrates new right infrahilar interstitial alveolar opacities, pneumonia/pneumonitis. Remaining heart and left lung unremarkable. Bony thorax intact again with osteopenia and mild degenerative changes.
[2025-01-21 14:05] LABS: Appearance Clear (Clear); Bacteria None Seen /HPF (None Seen); Bilirubin Negative (Negative); Blood Negative (Negative); Epithelial Cells None Seen /HPF (None Seen); Glucose, Urine >=1000 mg/dL (Negative); Hyaline Casts NONE SEEN /LPF (0-2); Ketones Negative (Negative); Leukocyte Esterase Negative (Negative); Nitrite Negative (Negative); Ph 5.5 (4.6-8.0); Protein,Urine Dip Negative (Negative); RBC 0-2 /HPF (0-5); Urobilinogen 0.2 mg/dL (0.2); WBC 0-2 /HPF (0-5)
[2025-01-21] MEDS: TYLENOL EXTRA STRENGTH 500 MG PO STA (14:13)
[2025-01-21] MEDS ORDERED: TYLENOL EXTRA STRENGTH 500 MG ONE (14:13)
[2025-01-21] MEDS ORDERED: ROCEPHIN 2 GM/100 ML NACL 2 GM/100 ML IVPB IV ONE (14:27)
[2025-01-21] MEDS: ROCEPHIN 2 GM/100 ML NACL 2 GM/100 ML IVPB IV ONE (14:28)
[2025-01-21 14:46] LABS: Absolute Neutrophil Ct (ANC) 4.14 x10^3/uL (1.56-6.13); BASOPHIL % 0.4 % (0.1-1.2); Basophil (Absolute #) 0.03 x10^3/uL (0.01-0.08); Eosinophil % 3.5 % (0.7-5.8); Eosinophil (Absolute #) 0.24 x10^3/uL (0.04-0.36); Hematocrit 38.1 % (34.1-44.9); Hemoglobin 12.8 g/dL (11.2-15.7); IMMATURE GRAN # 0.02 x10^3u/L (0.001-0.031); IMMATURE GRAN % 0.3 % (0.001-0.429); Lymphocyte (Absolute #) 1.93 x10^3/uL (1.18-3.74); Mean Cell Volume 87.4 fL (79.4-94.8); Mean Corpuscular Hemoglobin 29.4 pg (25.6-32.2); Mean Corpuscular Hgb Concent. 33.6 g/dL (32.2-35.5); Mean Platelet Volume 9.9 fL (9.4-12.3); Monocyte (Absolute #) 0.54 x10^3/uL (0.24-0.86); Monocytes % 7.8 % (4.7-12.5); Platelet Count 287 x10^3/uL (182-369); Red Blood Count 4.36 x10^6/uL (3.93-5.22); Red Cell Distribution Width 12.6 % (11.7-14.4); White Blood Count 6.9 x10^3/uL (3.98-10.04)
[2025-01-21 15:11] LABS: ANION GAP 15.9 MEQ/L (5-15); BILIRUBIN,TOTAL 0.4 mg/dL (0.2-1.3); Calcium 9.4 mg/dL (8.4-10.2); Creatinine 1 0.5 mg/dL (0.52-1.04); EST GLOMERULAR FILTRATION RATE 109.3 ML/MIN; Potassium 4.3 mmol/L (3.5-5.1)
[2025-01-21] MEDS ORDERED: Zithromax 500 MG/ 250 ML NaCl Premix 500 MG/250 ML IVPB IV ONE (15:14)
[2025-01-21] MEDS: Zithromax 500 MG/ 250 ML NaCl Premix 500 MG/250 ML IVPB IV STA (15:16)
--- NOTE | 2025-01-21 18:09 | PCM.HP ---
History of Present Illness - Chief Complaint Chief Complaint: COVID, pneumonia, hypoxia Date: 01/21/25 History of Present Illness: is a 59-year-old female with PMHX of hyperlipidemia, HTN, COPD, asthma, Sleep apnea, type I DM, Hypothyroidism, DJD, GERD, Depression, and chronic obesity. She presented to the emergency department today with a dry cough and generalized weakness that have progressively worsened over the past week. She was recently diagnosed with COVID-19 on 01/16/2025 at an outside clinic, where she was advised to obtain a chest X-ray due to concerns for pneumonia. She denies chest pain or fever at this time. A chest X-ray reveals right infrahilar pneumonia. Blood cultures were obtained, and IV antibiotics were initiated in the emergency department. Laboratory results show an elevated anion gap, and IV fluids are started. UA reveals glucosuria but no evidence of a UTI. The patient states she feels too weak to go home therefore pt was admitted. Will have PT work with pt in the AM. - Review of Systems Constitutional: No Fever, No Chills Eyes: No Symptoms Ears, Nose, & Throat: No Symptoms Respiratory: Cough, No Short Of Breath Cardiac: No Chest Pain, No Edema, No Syncope Abdominal/Gastrointestinal: No Abdominal Pain, No Nausea, No Vomiting, No Diarrhea Genitourinary Symptoms: No Dysuria Musculoskeletal: No Back Pain, No Neck Pain Skin: No Rash Neurological: No Dizziness, No Focal Weakness, No Sensory Changes Psychological: No Symptoms Endocrine: No Symptoms Hematologic/Lymphatic: No Symptoms Immunological/Allergic: No Symptoms Medications & Allergies Home Medications: Home Medication List Insulin Lispro [Humalog] 10 units SQ AC 09/22/16 [History Confirmed 01/21/25] Sertraline HCl 100 mg [Zoloft 100 MG] 200 mg PO DAILY 09/22/16 [History Confirmed 01/21/25] Bisoprolol Fumarate 10 mg PO DAILY 04/21/19 [History Confirmed 01/21/25] Pregabalin [Lyrica 100Mg] 150 mg PO TID 04/21/19 [History Confirmed 01/21/25] Amlodipine Besylate [Norvasc] 2.5 mg PO HS 12/24/24 [History Confirmed 01/21/25] Calcium Carbonate [Calcium] 600 mg PO DAILY 12/24/24 [History Confirmed 01/21/25] Dapagliflozin Propanediol [Farxiga] 10 mg PO DAILY 12/24/24 [History Confirmed 01/21/25] Insulin Glargine [Lantus Insulin] 45 unit SQ DAILY 12/24/24 [History Confirmed 01/21/25] Isosorbide Mononitrate 30 mg [Imdur 30 MG] 30 mg PO DAILY 12/24/24 [History Confirmed 01/21/25] Levothyroxine Sodium 100 Mcg [Synthroid 100 Mcg] 100 mcg PO DAILY 12/24/24 [History Confirmed 01/21/25] Losartan Potassium 50 mg [Cozaar 50 MG] 50 mg PO HS 12/24/24 [History Confirmed 01/21/25] Magnesium Oxide [Magnesium] 400 mg PO DAILY 12/24/24 [History Confirmed 01/21/25] Montelukast Sodium 10 mg [Singulair 10 MG] 10 mg PO HS 12/24/24 [History Confirmed 01/21/25] Multivitamin 1 tab PO DAILY 12/24/24 [History Confirmed 01/21/25] Rosuvastatin Calcium 20 mg PO HS 12/24/24 [History Confirmed 01/21/25] Theophylline Anhydrous [Theophylline ER] 400 mg PO DAILY 12/24/24 [History Confirmed 01/21/25] Doxycycline Hyclate 100 mg [Vibramycin 100 MG] 100 mg PO BID 01/21/25 [History Confirmed 01/21/25] Omeprazole 20 mg PO BID 01/21/25 [History Confirmed 01/21/25] Allergies/Adverse Reactions: Allergies Allergy/AdvReac Type Severity Reaction Status Date / Time codeine Allergy Verified 01/21/25 13:15 empagliflozin Allergy Verified 01/21/25 13:15 [From Jardiance] ezetimibe [From Vytorin] Allergy Verified 01/21/25 13:15 metformin [From Glucophage] Allergy Verified 01/21/25 13:15 oxycodone [From Percocet] Allergy Verified 01/21/25 13:15 prochlorperazine Allergy Verified 01/21/25 13:15 [From Compazine] semaglutide [From Ozempic] Allergy Verified 01/21/25 13:15 simvastatin [From Vytorin] Allergy Verified 01/21/25 13:15 umeclidinium Allergy Verified 01/21/25 13:15 [From Incruse Ellipta] morphine AdvReac Verified 01/21/25 13:15 - Past Medical History Past Medical History: Yes Neurological History: No Pertinent History ENT History: No Pertinent History Cardiac History: Angina, High Cholesterol, Hypertension Respiratory History: Asthma, COPD, Sleep Apnea Endocrine Medical History: Diabetes Type II, Hypothyroidism Musculoskelatal History: Degenerative Disk Disease GI Medical History: GERD History: No Pertinent History Pyscho-Social History: Depression Reproductive Disorders: Other Comment: , R KNEE MENSICUS TEAR W/ REPAIR, plantar fascia,mrsa, chronic neck and back pain, vertigo - Past Surgical History Past Surgical History: Yes Neuro Surgical History: No Pertinent History Cardiac History: Cardiac Catheterization Respiratory Surgery: No Pertinent History GI Surgical History: Cholecystectomy, Hernia Repair Genitourinary Surgical Hx: No Pertinent History Musculskeletal Surgical Hx: Orthopedic Surgery Female Surgical History: Tubal Ligation Other Surgical History: carpal tunel repair in right hand, knee surgery , lymph node removed, I&d lesion on head, left elbow surgery Significant Family History: no pertinent family hx - Social History Smoking Status: Never smoker Exposure to second hand smoke: No Alcohol: None Drug Use: none - Social Determinants of Health Will the patient participate in the screening: Yes Do you worry about a steady place to live?: No Do you have any problems with any of the following?: No known problems In the past 12 months,have you had to go without utilities?: No Have you or anyone in your house had to go without enough: No Transportation Issues: No Has anyone in your support network made you feel unsafe?: No - Physical Exam Vital Signs: Vital Signs - 24 hr Temp Pulse Resp BP BP Pulse Ox 01/21/25 17:00 84 18 140/90 95 01/21/25 16:50 95 01/21/25 16:44 97 01/21/25 16:40 97 01/21/25 16:32 97 01/21/25 16:15 82 18 149/98 96 01/21/25 16:00 77 18 145/102 94 L 01/21/25 15:45 77 18 146/81 94 L 01/21/25 15:30 77 16 131/83 94 L 01/21/25 15:15 74 23 127/83 94 L 01/21/25 15:01 76 24 101/66 94 L 01/21/25 14:45 97 H 22 141/88 95 01/21/25 14:30 76 20 134/84 97 01/21/25 14:16 78 20 124/95 95 01/21/25 14:07 96 01/21/25 13:59 98 01/21/25 13:45 79 18 160/72 96 01/21/25 13:30 75 18 142/92 97 01/21/25 13:16 96.7 F 84 28 H 142/92 97 General Appearance: no apparent distress, alert, obese Neurologic Exam: alert, oriented x 3, cooperative, normal mood/affect, nml cerebellar function, nml station & gait, sensation nml, No motor deficits Eye Exam: PERRL/EOMI, eyes nml inspection Ears, Nose, Throat Exam: normal ENT inspection, TMs normal, pharynx normal, moist mucous membranes Neck Exam: normal inspection, non-tender, supple, full range of motion Respiratory Exam: normal breath sounds, diminished breath sounds, crackles/rales (RML), No respiratory distress Cardiovascular Exam: regular rate/rhythm, normal heart sounds, normal peripheral pulses Gastrointestinal/Abdomen Exam: soft, normal bowel sounds, No tenderness, No mass Back Exam: normal inspection, normal range of motion, No CVA tenderness, No vertebral tenderness Extremity Exam: normal inspection, normal range of motion, pelvis stable Skin Exam: normal color, warm, dry, No rash Lymphatic Exam: No adenopathy Results - Labs Lab/Micro Results: Lab Results-Last 24 Hours 01/21/25 01/21/25 01/21/25 Range/Units 13:57 14:40 14:40 WBC 6.9 (3.98-10.04) x10^3/uL RBC 4.36 (3.93-5.22) x10^6/uL Hgb 12.8 (11.2-15.7) g/dL Hct 38.1 (34.1-44.9) % MCV 87.4 (79.4-94.8) fL MCH 29.4 (25.6-32.2) pg MCHC 33.6 (32.2-35.5) g/dL RDW 12.6 (11.7-14.4) % Plt Count 287 (182-369) x10^3/uL MPV 9.9 (9.4-12.3) fL Gran % 60.0 (34.0-71.1) % Immature Gran % (Auto) 0.3 (0.001-0.429) % Nucleat RBC Rel Count 0.0 (0.00-0.2) % Eos # (Auto) 0.24 (0.04-0.36) x10^3/uL Immature Gran # (Auto) 0.02 (0.001-0.031) x10^3u/L Absolute Lymphs (auto) 1.93 (1.18-3.74) x10^3/uL Absolute Monos (auto) 0.54 (0.24-0.86) x10^3/uL Absolute Nucleated RBC 0.00 (0.00-0.012) x10^3u/L Lymphocytes % 28.0 (19.3-51.7) % Monocytes % 7.8 (4.7-12.5) % Eosinophils % 3.5 (0.7-5.8) % Basophils % 0.4 (0.1-1.2) % Absolute Granulocytes 4.14 (1.56-6.13) x10^3/uL Basophils # 0.03 (0.01-0.08) x10^3/uL Sodium 140 (135-145) mmol/L Potassium 4.3 (3.5-5.1) mmol/L Chloride 107 (98-107) mmol/L Carbon Dioxide 22 (22-30) mmol/L Anion Gap 15.9 H (5-15) MEQ/L BUN 21 H (7-17) mg/dL Creatinine 0.50 L (0.52-1.04) mg/dL Estimated GFR 109.3 ML/MIN Glucose 159 H (74-106) mg/dL Calcium 9.4 (8.4-10.2) mg/dL Total Bilirubin 0.40 (0.2-1.3) mg/dL AST 23 (14-36) U/L ALT 22 (0-35) U/L Alkaline Phosphatase 87 (38-126) U/L Troponin I (0.000-0.033) ng/mL NT-Pro-B Natriuret Pep 326 (<300) pg/mL Serum Total Protein 7.0 (6.3-8.2) g/dL Albumin 4.0 (3.5-5.0) g/dL Urine Color Yellow (Yellow) Urine Appearance Clear (Clear) Urine pH 5.5 (4.6-8.0) Ur Specific [place] 1.020 (1.005-1.030) Urine Protein Negative (Negative) Urine Glucose (UA) >=1000 A (Negative) mg/dL Urine Ketones Negative (Negative) Urine Blood Negative (Negative) Urine Nitrite Negative (Negative) Urine Bilirubin Negative (Negative) Urine Urobilinogen 0.2 (0.2) mg/dL Ur Leukocyte Esterase Negative (Negative) U Hyaline Cast (Auto) NONE SEEN (0-2) /LPF Urine Microscopic RBC 0-2 (0-5) /HPF Urine Microscopic WBC 0-2 (0-5) /HPF Ur Epithelial Cells None Seen (None Seen) /HPF Urine Bacteria None Seen (None Seen) /HPF Urine Culture Reflexed NO (NO) 01/21/25 Range/Units 14:40 WBC (3.98-10.04) x10^3/uL RBC (3.93-5.22) x10^6/uL Hgb (11.2-15.7) g/dL Hct (34.1-44.9) % MCV (79.4-94.8) fL MCH (25.6-32.2) pg MCHC (32.2-35.5) g/dL RDW (11.7-14.4) % Plt Count (182-369) x10^3/uL MPV (9.4-12.3) fL Gran % (34.0-71.1) % Immature Gran % (Auto) (0.001-0.429) % Nucleat RBC Rel Count (0.00-0.2) % Eos # (Auto) (0.04-0.36) x10^3/uL Immature Gran # (Auto) (0.001-0.031) x10^3u/L Absolute Lymphs (auto) (1.18-3.74) x10^3/uL Absolute Monos (auto) (0.24-0.86) x10^3/uL Absolute Nucleated RBC (0.00-0.012) x10^3u/L Lymphocytes % (19.3-51.7) % Monocytes % (4.7-12.5) % Eosinophils % (0.7-5.8) % Basophils % (0.1-1.2) % Absolute Granulocytes (1.56-6.13) x10^3/uL Basophils # (0.01-0.08) x10^3/uL Sodium (135-145) mmol/L Potassium (3.5-5.1) mmol/L Chloride (98-107) mmol/L Carbon Dioxide (22-30) mmol/L Anion Gap (5-15) MEQ/L BUN (7-17) mg/dL Creatinine (0.52-1.04) mg/dL Estimated GFR ML/MIN Glucose (74-106) mg/dL Calcium (8.4-10.2) mg/dL Total Bilirubin (0.2-1.3) mg/dL AST (14-36) U/L ALT (0-35) U/L Alkaline Phosphatase (38-126) U/L Troponin I < 0.012 (0.000-0.033) ng/mL NT-Pro-B Natriuret Pep (<300) pg/mL Serum Total Protein (6.3-8.2) g/dL Albumin (3.5-5.0) g/dL Urine Color (Yellow) Urine Appearance (Clear) Urine pH (4.6-8.0) Ur Specific [place] (1.005-1.030) Urine Protein (Negative) Urine Glucose (UA) (Negative) mg/dL Urine Ketones (Negative) Urine Blood (Negative) Urine Nitrite (Negative) Urine Bilirubin (Negative) Urine Urobilinogen (0.2) mg/dL Ur Leukocyte Esterase (Negative) U Hyaline Cast (Auto) (0-2) /LPF Urine Microscopic RBC (0-5) /HPF Urine Microscopic WBC (0-5) /HPF Ur Epithelial Cells (None Seen) /HPF Urine Bacteria (None Seen) /HPF Urine Culture Reflexed (NO) - Radiology Impressions Radiology Exams & Impressions: Radiology Procedures Category Date Time Status CHEST 1 VIEW (PORTABLE) Stat Exams 01/21/25 13:47 Completed Assessment/Plan (1) Pneumonia Current Visit: Yes Status: Acute Assessment & Plan: - CXR: Portable chest demonstrates new right infrahilar interstitial alveolar opacities, pneumonia/pneumonitis. Remaining heart and left lung unremarkable. Bony thorax intact again with osteopenia and mild degenerative changes. - Ceftriaxone and azithromycin started in ER- Continue - RA 95% - tessalon perles - Xoponex PRN- d/t allergies to other meds - Tele - mucinex - tylenol for pain PRN Code(s): J18.9 - PNEUMONIA, UNSPECIFIED ORGANISM (2) Dehydration Current Visit: Yes Status: Acute Assessment & Plan: - Anion gap 15.9 - Gentle IV hydration Code(s): E86.0 - DEHYDRATION (3) Hypothyroidism Current Visit: Yes Status: Chronic Assessment & Plan: - Continue synthroid Code(s): E03.9 - HYPOTHYROIDISM, UNSPECIFIED (4) COVID-19 Current Visit: Yes Status: Acute Assessment & Plan: -Over 1 week now- so meds not started for this. - isolation Code(s): U07.1 - COVID-19 (5) Generalized weakness Current Visit: Yes Status: Acute Assessment & Plan: - PT Eval and treat Code(s): R53.1 - WEAKNESS (6) Diabetes mellitus Current Visit: No Status: Chronic Qualifiers: Diabetes mellitus type: type 1 Diabetes mellitus complication status: with circulatory complication Assessment & Plan: - Continue home insulin regimen - A1C pending Code(s): E11.9 - TYPE 2 DIABETES MELLITUS WITHOUT COMPLICATIONS (7) Hypertension Current Visit: No Status: Chronic Qualifiers: Hypertension type: primary hypertension Qualified Code(s): I10 - Essential (primary) hypertension Assessment & Plan: - BP stable - Continue home meds VTE:LOVENOX PPI: Protonix Next of KIN: partner- Jigar Stuartield D/C plan: tomorrow Code status: Full Code(s): I10 - ESSENTIAL (PRIMARY) HYPERTENSION Telemedicine Encounter - Telemedicine Encounter Telemedicine Encounter: "The entirety of this encounter was performed via Telemedicine" This visit was performed using real-time audio and video connection between my location and thepatients locationwith the assistance of a surrogateat the patients location. Written or verbal consent was obtained from the patient/guardian to perform this visit [facility]. Any patient questions regarding the telemedicine interaction were answered.
[2025-01-21] MEDS ORDERED: Xopenex 1.25 MG/0.5 ML UD NEBULE IH PRN (18:23)
[2025-01-21] MEDS: Sodium Chloride 0.9% 1000 ML 1,000 ML IV SCH (18:56)
[2025-01-21] MEDS: Tessalon Perles 100 MG PO PRN (20:40)
[2025-01-21] MEDS: TYLENOL 325 MG PO PRN (20:40)
[2025-01-21] MEDS ORDERED: Pepcid 20 MG ONE (22:39)
[2025-01-21] MEDS ORDERED: NORVASC 5 MG ONE (22:39)
[2025-01-21] MEDS ORDERED: LYRICA 150MG ONE (22:39)
[2025-01-21] MEDS: Cozaar 50 MG PO SCH (22:43)
[2025-01-21] MEDS: Mucinex 600MG ER Tabs PO SCH (22:43)
[2025-01-21] MEDS: ZOCOR 20MG PO SCH (22:44)
[2025-01-21] MEDS: Singulair 10 MG PO SCH (22:45)
[2025-01-21] MEDS: NON-FORMULARY ITEM (Omeprazole [Omeprazole] 20 MG Tab.Rap.Dr) PO SCH (22:46)
[2025-01-21] MEDS: LYRICA 100MG PO SCH (22:46)
[2025-01-21] MEDS: NON-FORMULARY ITEM (Amlodipine Besylate [Norvasc] 2.5 MG Tablet) PO SCH (22:47)
[2025-01-22 05:57] LABS: Hematocrit 41.7 % (34.1-44.9); Hemoglobin 13.6 g/dL (11.2-15.7); Mean Cell Volume 87.4 fL (79.4-94.8); Mean Corpuscular Hemoglobin 28.5 pg (25.6-32.2); Mean Corpuscular Hgb Concent. 32.6 g/dL (32.2-35.5); Mean Platelet Volume 10.3 fL (9.4-12.3); Platelet Count 314 x10^3/uL (182-369); Red Blood Count 4.77 x10^6/uL (3.93-5.22); Red Cell Distribution Width 12.9 % (11.7-14.4); White Blood Count 7.3 x10^3/uL (3.98-10.04)
[2025-01-22 07:30] LABS: ALBUMIN 4.4 g/dL (3.5-5.0); BILIRUBIN,TOTAL 0.4 mg/dL (0.2-1.3); Calcium 9.6 mg/dL (8.4-10.2); Creatinine 1 0.53 mg/dL (0.52-1.04); EST GLOMERULAR FILTRATION RATE 107.8 ML/MIN; Potassium 4.1 mmol/L (3.5-5.1); Total Protein 7.9 g/dL (6.3-8.2)
[2025-01-22] MEDS ORDERED: NON-FORMULARY ITEM (Insulin Lispro 1 UNIT Ml) SQ SCH (07:30)
[2025-01-22 07:38] VITALS: RESP 16
[2025-01-22] MEDS ORDERED: MEDICATION INTERVENTION MC SCH ×2 (07:45)
[2025-01-22] MEDS: HUMALOG SQ SCH (08:08)
[2025-01-22] MEDS: NON-FORMULARY ITEM (Rosuvastatin Calcium [Rosuvastatin Calcium] 40 MG Tablet) PO SCH (09:23)
[2025-01-22] MEDS ORDERED: NON-FORMULARY ITEM (Magnesium Oxide [Magnesium] 400 MG Tablet) PO SCH (10:00)
[2025-01-22] MEDS ORDERED: NON-FORMULARY ITEM (Multivitamin [Multivitamin] 1 EACH Tablet) PO SCH (10:00)
[2025-01-22] MEDS ORDERED: NON-FORMULARY ITEM (Bisoprolol Fumarate [Bisoprolol Fumarate] 10 MG Tablet) PO SCH (10:00)
[2025-01-22] MEDS ORDERED: NON-FORMULARY ITEM (Sertraline Hcl 100 Mg [Zoloft 100 Mg] 100 MG Tab) PO SCH (10:00)
[2025-01-22] MEDS ORDERED: NON-FORMULARY ITEM (Dapagliflozin Propanediol [Farxiga] 10 MG Tablet) PO SCH (10:00)
[2025-01-22] MEDS ORDERED: NON-FORMULARY ITEM (Calcium Carbonate [Calcium] 600 MG Tablet) PO SCH (10:00)
[2025-01-22] MEDS: LYRICA 150MG PO SCH (10:10)
[2025-01-22] MEDS: THERAGRAN MULTIVITAMIN PO SCH (10:10)
[2025-01-22] MEDS: SYNTHROID 100 MCG PO SCH (10:10)
[2025-01-22] MEDS: MAG-OX 400 PO SCH (10:10)
[2025-01-22] MEDS: ROCEPHIN 1 GM / 100 ML NaCl 1 GM/100 ML IVPB IV SCH (10:10)
[2025-01-22] MEDS: Imdur 30 MG PO SCH (10:10)
[2025-01-22] MEDS: ZOLOFT 50 MG TABLET PO SCH (10:11)
[2025-01-22] MEDS: ENOXAPARIN SODIUM SQ SCH (10:11)
[2025-01-22] MEDS: Calcium 500MG W/Vit D Tablet PO SCH (10:11)
[2025-01-22] MEDS: Protonix 40MG Tablet PO SCH (10:11)
[2025-01-22] MEDS: Lantus Insulin SQ SCH (10:11)
[2025-01-22] MEDS: Zithromax 500 MG/ 250 ML NaCl Premix 500 MG/250 ML IVPB IV SCH (10:11)
[2025-01-22] MEDS: THEOPHYLLINE ER 24HR PO SCH (11:09)
--- NOTE | 2025-01-22 11:38 | PCM.DS ---
Discharge Summary Date of Admission: 01/21/25 17:43 Date of Discharge: 01/22/25 Admitting Physician: SCOTT JENSEN MD Primary Care Provider: NICOLLE JEROME Allergies Allergies codeine Allergy (Verified 01/21/25 13:15) empagliflozin [From Jardiance] Allergy (Verified 01/21/25 13:15) ezetimibe [From Vytorin] Allergy (Verified 01/21/25 13:15) metformin [From Glucophage] Allergy (Verified 01/21/25 13:15) oxycodone [From Percocet] Allergy (Verified 01/21/25 13:15) prochlorperazine [From Compazine] Allergy (Verified 01/21/25 13:15) semaglutide [From Ozempic] Allergy (Verified 01/21/25 13:15) simvastatin [From Vytorin] Allergy (Verified 01/21/25 13:15) umeclidinium [From Incruse Ellipta] Allergy (Verified 01/21/25 13:15) morphine Adverse Reaction (Verified 01/21/25 13:15) Hospital Summary - Hospital Course Hospital Course: 01/21/25 is a 59-year-old female with PMHX of hyperlipidemia, HTN, COPD, asthma, Sleep apnea, type I DM, Hypothyroidism, DJD, GERD, Depression, and chronic obesity. She presented to the emergency department today with a dry cough and generalized weakness that have progressively worsened over the past week. She was recently diagnosed with COVID-19 on 01/16/2025 at an outside clinic, where she was advised to obtain a chest X-ray due to concerns for pneumonia. She denies chest pain or fever at this time. A chest X-ray reveals right infrahilar pneumonia. Blood cultures were obtained, and IV antibiotics were initiated in the emergency department. Laboratory results show an elevated anion gap, and IV fluids are started. UA reveals glucosuria but no evidence of a UTI. The patient states she feels too weak to go home therefore pt was admitted. Will have PT work with pt in the AM. 01/22/25 Pt up and sitting in chair. She was able to walk to the shower today and wash herself. She is feeling better today but has continued weakness. She is not requiring oxygen and lung sounds are clear. Will continue OP antbx for pneumonia. She denies any further concerns at this time. - Vitals & Intake/Output Vital Signs: Vital Signs Temperature 97.7 F 01/22/25 07:36 Pulse Rate 77 01/22/25 07:36 Respiratory Rate 16 01/22/25 07:36 Blood Pressure 136/72 01/22/25 07:36 O2 Sat by Pulse Oximetry 97 01/22/25 07:36 Intake & Output: Intake & Output 01/19/25 01/20/25 01/21/25 01/22/25 11:59 11:59 11:59 11:59 Intake Total 2469 Output Total 300 Balance 2169 Weight 105 kg - Lab Result Diagrams: 01/22/25 04:37 01/22/25 04:37 Lab Results-Last 24 Hrs: Lab Results-Last 24 Hours 01/21/25 01/21/25 01/21/25 Range/Units 13:57 14:40 14:40 WBC 6.9 (3.98-10.04) x10^3/uL RBC 4.36 (3.93-5.22) x10^6/uL Hgb 12.8 (11.2-15.7) g/dL Hct 38.1 (34.1-44.9) % MCV 87.4 (79.4-94.8) fL MCH 29.4 (25.6-32.2) pg MCHC 33.6 (32.2-35.5) g/dL RDW 12.6 (11.7-14.4) % Plt Count 287 (182-369) x10^3/uL MPV 9.9 (9.4-12.3) fL Gran % 60.0 (34.0-71.1) % Immature Gran % (Auto) 0.3 (0.001-0.429) % Nucleat RBC Rel Count 0.0 (0.00-0.2) % Eos # (Auto) 0.24 (0.04-0.36) x10^3/uL Immature Gran # (Auto) 0.02 (0.001-0.031) x10^3u/L Absolute Lymphs (auto) 1.93 (1.18-3.74) x10^3/uL Absolute Monos (auto) 0.54 (0.24-0.86) x10^3/uL Absolute Nucleated RBC 0.00 (0.00-0.012) x10^3u/L Lymphocytes % 28.0 (19.3-51.7) % Monocytes % 7.8 (4.7-12.5) % Eosinophils % 3.5 (0.7-5.8) % Basophils % 0.4 (0.1-1.2) % Absolute Granulocytes 4.14 (1.56-6.13) x10^3/uL Basophils # 0.03 (0.01-0.08) x10^3/uL Sodium 140 (135-145) mmol/L Potassium 4.3 (3.5-5.1) mmol/L Chloride 107 (98-107) mmol/L Carbon Dioxide 22 (22-30) mmol/L Anion Gap 15.9 H (5-15) MEQ/L BUN 21 H (7-17) mg/dL Creatinine 0.50 L (0.52-1.04) mg/dL Estimated GFR 109.3 ML/MIN Glucose 159 H (74-106) mg/dL POC Glucometer (74 to 106) mg/dL Hemoglobin A1c (4.5-6.0) % Calcium 9.4 (8.4-10.2) mg/dL Total Bilirubin 0.40 (0.2-1.3) mg/dL AST 23 (14-36) U/L ALT 22 (0-35) U/L Alkaline Phosphatase 87 (38-126) U/L Troponin I (0.000-0.033) ng/mL NT-Pro-B Natriuret Pep 326 (<300) pg/mL Serum Total Protein 7.0 (6.3-8.2) g/dL Albumin 4.0 (3.5-5.0) g/dL Urine Color Yellow (Yellow) Urine Appearance Clear (Clear) Urine pH 5.5 (4.6-8.0) Ur Specific [place] 1.020 (1.005-1.030) Urine Protein Negative (Negative) Urine Glucose (UA) >=1000 A (Negative) mg/dL Urine Ketones Negative (Negative) Urine Blood Negative (Negative) Urine Nitrite Negative (Negative) Urine Bilirubin Negative (Negative) Urine Urobilinogen 0.2 (0.2) mg/dL Ur Leukocyte Esterase Negative (Negative) U Hyaline Cast (Auto) NONE SEEN (0-2) /LPF Urine Microscopic RBC 0-2 (0-5) /HPF Urine Microscopic WBC 0-2 (0-5) /HPF Ur Epithelial Cells None Seen (None Seen) /HPF Urine Bacteria None Seen (None Seen) /HPF Urine Culture Reflexed NO (NO) 01/21/25 01/21/25 01/21/25 Range/Units 14:40 18:14 22:02 WBC (3.98-10.04) x10^3/uL RBC (3.93-5.22) x10^6/uL Hgb (11.2-15.7) g/dL Hct (34.1-44.9) % MCV (79.4-94.8) fL MCH (25.6-32.2) pg MCHC (32.2-35.5) g/dL RDW (11.7-14.4) % Plt Count (182-369) x10^3/uL MPV (9.4-12.3) fL Gran % (34.0-71.1) % Immature Gran % (Auto) (0.001-0.429) % Nucleat RBC Rel Count (0.00-0.2) % Eos # (Auto) (0.04-0.36) x10^3/uL Immature Gran # (Auto) (0.001-0.031) x10^3u/L Absolute Lymphs (auto) (1.18-3.74) x10^3/uL Absolute Monos (auto) (0.24-0.86) x10^3/uL Absolute Nucleated RBC (0.00-0.012) x10^3u/L Lymphocytes % (19.3-51.7) % Monocytes % (4.7-12.5) % Eosinophils % (0.7-5.8) % Basophils % (0.1-1.2) % Absolute Granulocytes (1.56-6.13) x10^3/uL Basophils # (0.01-0.08) x10^3/uL Sodium (135-145) mmol/L Potassium (3.5-5.1) mmol/L Chloride (98-107) mmol/L Carbon Dioxide (22-30) mmol/L Anion Gap (5-15) MEQ/L BUN (7-17) mg/dL Creatinine (0.52-1.04) mg/dL Estimated GFR ML/MIN Glucose (74-106) mg/dL POC Glucometer 144 H (74 to 106) mg/dL Hemoglobin A1c (4.5-6.0) % Calcium (8.4-10.2) mg/dL Total Bilirubin (0.2-1.3) mg/dL AST (14-36) U/L ALT (0-35) U/L Alkaline Phosphatase (38-126) U/L Troponin I < 0.012 < 0.012 (0.000-0.033) ng/mL NT-Pro-B Natriuret Pep (<300) pg/mL Serum Total Protein (6.3-8.2) g/dL Albumin (3.5-5.0) g/dL Urine Color (Yellow) Urine Appearance (Clear) Urine pH (4.6-8.0) Ur Specific [place] (1.005-1.030) Urine Protein (Negative) Urine Glucose (UA) (Negative) mg/dL Urine Ketones (Negative) Urine Blood (Negative) Urine Nitrite (Negative) Urine Bilirubin (Negative) Urine Urobilinogen (0.2) mg/dL Ur Leukocyte Esterase (Negative) U Hyaline Cast (Auto) (0-2) /LPF Urine Microscopic RBC (0-5) /HPF Urine Microscopic WBC (0-5) /HPF Ur Epithelial Cells (None Seen) /HPF Urine Bacteria (None Seen) /HPF Urine Culture Reflexed (NO) 01/21/25 01/22/25 01/22/25 Range/Units 22:15 04:37 04:37 WBC 7.3 (3.98-10.04) x10^3/uL RBC 4.77 (3.93-5.22) x10^6/uL Hgb 13.6 (11.2-15.7) g/dL Hct 41.7 (34.1-44.9) % MCV 87.4 (79.4-94.8) fL MCH 28.5 (25.6-32.2) pg MCHC 32.6 (32.2-35.5) g/dL RDW 12.9 (11.7-14.4) % Plt Count 314 (182-369) x10^3/uL MPV 10.3 (9.4-12.3) fL Gran % (34.0-71.1) % Immature Gran % (Auto) (0.001-0.429) % Nucleat RBC Rel Count (0.00-0.2) % Eos # (Auto) (0.04-0.36) x10^3/uL Immature Gran # (Auto) (0.001-0.031) x10^3u/L Absolute Lymphs (auto) (1.18-3.74) x10^3/uL Absolute Monos (auto) (0.24-0.86) x10^3/uL Absolute Nucleated RBC (0.00-0.012) x10^3u/L Lymphocytes % (19.3-51.7) % Monocytes % (4.7-12.5) % Eosinophils % (0.7-5.8) % Basophils % (0.1-1.2) % Absolute Granulocytes (1.56-6.13) x10^3/uL Basophils # (0.01-0.08) x10^3/uL Sodium (135-145) mmol/L Potassium (3.5-5.1) mmol/L Chloride (98-107) mmol/L Carbon Dioxide (22-30) mmol/L Anion Gap (5-15) MEQ/L BUN (7-17) mg/dL Creatinine (0.52-1.04) mg/dL Estimated GFR ML/MIN Glucose (74-106) mg/dL POC Glucometer (74 to 106) mg/dL Hemoglobin A1c 7.36 H (4.5-6.0) % Calcium (8.4-10.2) mg/dL Total Bilirubin (0.2-1.3) mg/dL AST (14-36) U/L ALT (0-35) U/L Alkaline Phosphatase (38-126) U/L Troponin I < 0.012 (0.000-0.033) ng/mL NT-Pro-B Natriuret Pep (<300) pg/mL Serum Total Protein (6.3-8.2) g/dL Albumin (3.5-5.0) g/dL Urine Color (Yellow) Urine Appearance (Clear) Urine pH (4.6-8.0) Ur Specific [place] (1.005-1.030) Urine Protein (Negative) Urine Glucose (UA) (Negative) mg/dL Urine Ketones (Negative) Urine Blood (Negative) Urine Nitrite (Negative) Urine Bilirubin (Negative) Urine Urobilinogen (0.2) mg/dL Ur Leukocyte Esterase (Negative) U Hyaline Cast (Auto) (0-2) /LPF Urine Microscopic RBC (0-5) /HPF Urine Microscopic WBC (0-5) /HPF Ur Epithelial Cells (None Seen) /HPF Urine Bacteria (None Seen) /HPF Urine Culture Reflexed (NO) 01/22/25 Range/Units 04:37 WBC (3.98-10.04) x10^3/uL RBC (3.93-5.22) x10^6/uL Hgb (11.2-15.7) g/dL Hct (34.1-44.9) % MCV (79.4-94.8) fL MCH (25.6-32.2) pg MCHC (32.2-35.5) g/dL RDW (11.7-14.4) % Plt Count (182-369) x10^3/uL MPV (9.4-12.3) fL Gran % (34.0-71.1) % Immature Gran % (Auto) (0.001-0.429) % Nucleat RBC Rel Count (0.00-0.2) % Eos # (Auto) (0.04-0.36) x10^3/uL Immature Gran # (Auto) (0.001-0.031) x10^3u/L Absolute Lymphs (auto) (1.18-3.74) x10^3/uL Absolute Monos (auto) (0.24-0.86) x10^3/uL Absolute Nucleated RBC (0.00-0.012) x10^3u/L Lymphocytes % (19.3-51.7) % Monocytes % (4.7-12.5) % Eosinophils % (0.7-5.8) % Basophils % (0.1-1.2) % Absolute Granulocytes (1.56-6.13) x10^3/uL Basophils # (0.01-0.08) x10^3/uL Sodium 145 (135-145) mmol/L Potassium 4.1 (3.5-5.1) mmol/L Chloride 110 H (98-107) mmol/L Carbon Dioxide 22 (22-30) mmol/L Anion Gap 17.0 H (5-15) MEQ/L BUN 19 H (7-17) mg/dL Creatinine 0.53 (0.52-1.04) mg/dL Estimated GFR 107.8 ML/MIN Glucose 84 (74-106) mg/dL POC Glucometer (74 to 106) mg/dL Hemoglobin A1c (4.5-6.0) % Calcium 9.6 (8.4-10.2) mg/dL Total Bilirubin 0.40 (0.2-1.3) mg/dL AST 28 (14-36) U/L ALT 23 (0-35) U/L Alkaline Phosphatase 79 (38-126) U/L Troponin I (0.000-0.033) ng/mL NT-Pro-B Natriuret Pep (<300) pg/mL Serum Total Protein 7.9 (6.3-8.2) g/dL Albumin 4.4 (3.5-5.0) g/dL Urine Color (Yellow) Urine Appearance (Clear) Urine pH (4.6-8.0) Ur Specific [place] (1.005-1.030) Urine Protein (Negative) Urine Glucose (UA) (Negative) mg/dL Urine Ketones (Negative) Urine Blood (Negative) Urine Nitrite (Negative) Urine Bilirubin (Negative) Urine Urobilinogen (0.2) mg/dL Ur Leukocyte Esterase (Negative) U Hyaline Cast (Auto) (0-2) /LPF Urine Microscopic RBC (0-5) /HPF Urine Microscopic WBC (0-5) /HPF Ur Epithelial Cells (None Seen) /HPF Urine Bacteria (None Seen) /HPF Urine Culture Reflexed (NO) Micro Results-Entire Visit: Accuchecks Date 01/22/25 Time 07:36 - Radiology Exams Ordered Rad Exams-Entire Visit: Radiology Procedures Category Date Time Status CHEST 1 VIEW (PORTABLE) Stat Exams 01/21/25 13:47 Completed - Procedures and Test Procedures and Tests throughout Hospitalization: Therapy Orders & Screens 01/21/25 18:07 PT Eval & Treat ( Order) ONCE Reason for Eval:: weakness Diagnosis: COVID, pneumonia, hypoxia 01/21/25 18:32 ST Screen per Nursing Assess ONCE Comment: Protocol Order Physician Instructions: Greater than [address] Admission Screening Reason For Exam: Triggered on Admission Diagnosis: COVID, pneumonia, hypoxia CVA/Dysphagia/Aphasia: No Cognitive Deficits: No Dehydration/Nutrition Deficit: No Reflux: No Oral-Motor Difficulties: No Pneumonia: Yes Jail Resident: No Total Points: 5 01/22/25 06:20 Respiratory Therapy Assessment DAILY Comment: Diagnosis: COVID, pneumonia, hypoxia Discharge Exam General Appearance: no apparent distress, alert Neurologic Exam: alert, oriented x 3, cooperative, normal mood/affect, nml cereb ellar function, sensation nml, motor weakness, No motor deficits Eye Exam: PERRL, EOMI, eyes nml inspection Ears, Nose, Throat Exam: normal ENT inspection, pharynx normal, moist mucous membranes Neck Exam: normal inspection, non-tender, supple, full range of motion Respiratory Exam: normal breath sounds, lungs clear, No respiratory distress Cardiovascular Exam: regular rate/rhythm, normal heart sounds Gastrointestinal/Abdomen Exam: soft, No tenderness, No mass Pelvic Exam: deferred Rectal Exam: deferred Back Exam: normal inspection, normal range of motion, No CVA tenderness, No vertebral tenderness Extremity Exam: normal inspection, normal range of motion Skin Exam: normal color, warm, dry Final Diagnosis/Problem List - Final Discharge Diagnosis/Problem (1) Pneumonia Current Visit: Yes Status: Acute Code(s): J18.9 - PNEUMONIA, UNSPECIFIED ORGANISM (2) Dehydration Current Visit: Yes Status: Acute Code(s): E86.0 - DEHYDRATION (3) Hypothyroidism Current Visit: Yes Status: Chronic Code(s): E03.9 - HYPOTHYROIDISM, UNSPECIFIED (4) COVID-19 Current Visit: Yes Status: Acute Code(s): U07.1 - COVID-19 (5) Generalized weakness Current Visit: Yes Status: Acute Code(s): R53.1 - WEAKNESS (6) Diabetes mellitus Current Visit: No Status: Chronic Code(s): E11.9 - TYPE 2 DIABETES MELLITUS WITHOUT COMPLICATIONS (7) Hypertension Current Visit: No Status: Chronic Assessment & Plan: (1) Pneumonia Current Visit: Yes Status: Acute Assessment & Plan: - CXR: Portable chest demonstrates new right infrahilar interstitial alveolar opacities, pneumonia/pneumonitis. Remaining heart and left lung unremarkable. Bony thorax intact again with osteopenia and mild degenerative changes. - Ceftriaxone and azithromycin started in ER- Continue - RA 95% - tessalon perles - Xoponex PRN- d/t allergies to other meds - Tele - mucinex - tylenol for pain PRN - CBC, CMP reviewed - Failed OP doxycycline 01/22 - CBC, CMP reviewed - RA Code(s): J18.9 - PNEUMONIA, UNSPECIFIED ORGANISM (2) Dehydration Current Visit: Yes Status: Acute Assessment & Plan: - Anion gap 15.9 - Gentle IV hydration 01/22 - Anion gap 17 - encouraged pt to increase fluid intake at home Code(s): E86.0 - DEHYDRATION (3) Hypothyroidism Current Visit: Yes Status: Chronic Assessment & Plan: - Continue synthroid Code(s): E03.9 - HYPOTHYROIDISM, UNSPECIFIED (4) COVID-19 Current Visit: Yes Status: Acute Assessment & Plan: -Over 1 week now- so meds not started for this. - isolation Code(s): U07.1 - COVID-19 (5) Generalized weakness Current Visit: Yes Status: Acute Assessment & Plan: - PT Eval and treat 01/22 - Pt eval not needed- pt walking fine in room today Code(s): R53.1 - WEAKNESS (6) Diabetes mellitus Current Visit: No Status: Chronic Qualifiers: Diabetes mellitus type: type 1 Diabetes mellitus complication status: with circulatory complication Assessment & Plan: - Continue home insulin regimen - A1C 7.36- uncontrolled - diabetic education provided - carb const. diet - F/U with PCP for better DM control Code(s): E11.9 - TYPE 2 DIABETES MELLITUS WITHOUT COMPLICATIONS (7) Hypertension Current Visit: No Status: Chronic Qualifiers: Hypertension type: primary hypertension Qualified Code(s): I10 - Essential (primary) hypertension Assessment & Plan: - BP stable - Continue home meds Code(s): I10 - ESSENTIAL (PRIMARY) HYPERTENSION - Discharge Discharge Date: 01/22/25 Disposition: Home, Self-Care Condition: Stable Prescriptions: New Guaifenesin 600 mg ER [Mucinex 600MG ER Tabs] 600 mg PO BID 10 Days #20 tablet Continue Sertraline HCl 100 mg [Zoloft 100 MG] 200 mg PO DAILY Insulin Lispro [Humalog] 10 units SQ AC Bisoprolol Fumarate 10 mg PO DAILY Pregabalin [Lyrica 100Mg] 150 mg PO TID Rosuvastatin Calcium 20 mg PO HS Magnesium Oxide [Magnesium] 400 mg PO DAILY Calcium Carbonate [Calcium] 600 mg PO DAILY Multivitamin 1 tab PO DAILY Insulin Glargine [Lantus Insulin] 45 unit SQ DAILY Levothyroxine Sodium 100 Mcg [Synthroid 100 Mcg] 100 mcg PO DAILY Dapagliflozin Propanediol [Farxiga] 10 mg PO DAILY Losartan Potassium 50 mg [Cozaar 50 MG] 50 mg PO HS Theophylline Anhydrous [Theophylline ER] 400 mg PO DAILY Amlodipine Besylate [Norvasc] 2.5 mg PO HS Montelukast Sodium 10 mg [Singulair 10 MG] 10 mg PO HS Isosorbide Mononitrate 30 mg [Imdur 30 MG] 30 mg PO DAILY Omeprazole 20 mg PO BID Discontinued Doxycycline Hyclate 100 mg [Vibramycin 100 MG] 100 mg PO BID Instructions: Fatigue (DC), COVID-19 in adults - Discharge instructions, Pneumonia in adults - Discharge instructions, Type 2 diabetes Additional Instructions: Please try to increase oral fluid intake at home. Follow up with: CHRISTIANO COHEN FNP [Primary Care Provider] - 01/30/25 11:40 am ()
[2025-01-22 11:48] VITALS: O2SAT 96
[2025-01-22 16:42] VITALS: BP 142/71; PULSE 80; TEMP 98
[2025-01-22] MEDS ORDERED: NORVASC 5 MG PO SCH (22:00)
== END 2025-01-22 18:45 | disposition home or self-care (01) ==
LOC: ED 13:04 → MED SURG 17:43
PROVIDERS: ADMIT Internal Medicine; ATTEND Internal Medicine
DX: J18.9 Pneumonia, unspecified organism (principal); U07.1 COVID-19; E86.0 Dehydration; E03.9 Hypothyroidism, unspecified; E10.9 Type 1 diabetes mellitus without complications; M19.90 Unspecified osteoarthritis, unspecified site; K21.9 Gastro-esophageal reflux disease without esophagitis; E66.9 Obesity, unspecified; I10 Essential (primary) hypertension; R53.1 Weakness; Z79.899 Other long term (current) drug therapy
CPT/HCPCS: 36415; 71045; 80053; 81001; 82947; 83036; 83880; 84484; 85025; 85027; 87040; 93005; 93041; 94760; 99285; Q3014; 93268; J0456; J0696; J1650; J1817; A9270-GY; G0378